=== PATIENT | male | born 2000 | race Caucasian/White ===

== ENCOUNTER 2021-09-27 20:36 | Emergency (ER) | payer OTHER, SELFPAY ==
[2021-09-27 20:37] VITALS: BP 137/83; PULSE 88; RESP 16; TEMP 36.8; O2SAT 98; BMI 24.5
--- NOTE | 2021-09-27 21:06 | CT_ITS ---
STUDY: CT BRAIN WITHOUT CONTRAST REASON FOR EXAM: Male, 21 years old. Closed head injury, problems with balance TECHNIQUE: Transaxial CT imaging of the brain was performed without administration of intravenous contrast material. Individualized dose optimization techniques were used for this CT. COMPARISON: None FINDINGS: Normal calvarium. Normal soft tissues. Normal size ventricles and extra-axial spaces for the patient''s age. Normal white matter tracts of the cerebral hemispheres. Normal basal ganglia and thalami. Normal brainstem. Normal cerebellum. There is no intracranial hemorrhage. There are no findings of an acute ischemic infarction. Normal visualized paranasal sinuses. ASPECTS 10 CT/Brain/Head without Contrast IMPRESSION: There are no acute intracranial findings. Electronically Signed: Benji Sanchez MD at 21:34 EDT ,
--- NOTE | 2021-09-27 21:07 | EDS_ITS ---
HPI History of Present Illness Chief Complaint: Head Injury Detail of Chief Complaint: Closed head injury with balance issues Informant: patient Onset/Context/Timing Onset: Hours (Incident occurred at approximately 1300) Mechanism/Context: Blunt Injury Quality of Pain: Dull and Aching Location: Left frontal parietal region Current Severity: Mild Maximum Severity: Moderate Worsened by: Palpation and activity Relieved by: Nothing Associated Symptoms Associated Symptoms: Positive for Parasthesias (Both hands initially) and - (Patient states if he tilts his head upward he falls and has trouble with his balance); Negative for Weakness, Loss of function, Inability to ambulate, Loss of consciousness or Amnesia Narrative Narrative: Patient is a 21-year-old male who was at [employer]. A metal drinking container fell from 15 feet striking him on the top of the head. He denies loss of conscious he denies being days. He does report headache, not being his normal self and problems with his balance. He denies double vision, blurred vision loss of vision. He denies drainage ears or decreased hearing. He denies trouble with speech or swallowing. He denies neck pain. He denies cardiac respiratory symptoms. He does endorse nausea without vomiting diarrhea. He has no other complaints. He is on no medication. Tetanus Immunization: <5 years Prior similar symptoms: No Recent Illness/Hospitalization: No PFSH PFSH Medical History no medical history no medical history Allergy/AdvReac Type Severity Reaction Status Date / Time No Known Allergies Allergy Verified 09/27/21 20:39 Social History (Updated 09/27/21 @ 21:[address] João Mims MD) household members: family Smoking Status: Never smoker substance use type: does not use ROS ROS ED Constitutional Constitutional ED: Denies chills, fever(s) or sweats Eyes Eyes: Denies blurry vision or change in vision ENT ENT ED: Reports other Details: He denies epistaxis ; Denies ear pain, rhinorrhea or sore throat Cardiovascular Cardiovascular: Denies chest pain or palpitations Respiratory/Chest Respiratory/Chest: Denies cough or dyspnea Gastrointestinal Gastrointestinal: Reports nausea; Denies abdominal pain or vomiting Musculoskeletal Musculoskeletal: Denies arthralgias, back pain, myalgias or neck pain Integumentary Denies abscess, Abrasions or rash Neurologic Neurologic: Reports headache(s); Denies paresthesias or weakness Psychiatric Psychiatric: Denies anxiety Hematologic/Lymphatic Hematologic/Lymphatic: Denies easy bleeding, easy bruising or lymphadenopathy EXAM Physical Exam Const Vital Signs: 09/27/21 20:37 09/27/21 20:57 Temperature 98.2 F Temperature Source Temporal Pulse Rate 88 Respiratory Rate 16 Respiratory Effort Normal Non-Labored Respiratory Depth Normal Respiratory Pattern Normal Blood Pressure 137/83 H Blood Pressure Mean 101 Pulse Ox 98 Oxygen Delivery Method Room Air Room Air Positive well nourished and well developed Constitutional Narrative: He is quiet. His psychomotor skills are slow. General Appearance ED: well developed and NAD HEENT Reports TM's clear atraumatic; Negative for trauma or tenderness Nose: Negative for septum abnormal Tympanic Membrane ED: Yes TM's clear right (Unable to see due to significant cerumen in the external auditory canal) Eyes PERRL and EOMs intact bilaterally Neck full ROM General: Negative for tenderness Resp normal respiratory effort and clear to auscultation bilaterally Cardio regular rhythm, S1 normal heart sound, S2 normal heart sound and no murmurs GI normal to inspection, nondistended, normoactive bowel sounds, non-tender and non-distended Back/Spine normal to inspection and no thoracic nor lumbar tenderness Extremity normal to inspection and full ROM Neuro oriented x3, CN's II-XII intact bilaterally, moves all extremities, no focal motor deficits and no sensory deficits noted Neuro Narrative: Gait is normal. Able to walk on heels or toes. Tandem gait is abnormal and he falls to the right. Romberg with eyes open and close are negative. Sherly Coma Scale: document GCS findings Spontaneous Obeys Commands Oriented 15 Sensorium / Orientation: alert, oriented to person, oriented to place and oriented to time Motor Exam: strength 5/5 throughout Deep Tendon Reflexes: Rt Triceps (C7): 2+, Lt Triceps (C7): 2+, Rt Biceps (C5, C6): 2+, Lt Biceps (C5, C6): 2+, Rt Brachioradialis (C6): 2+, Lt Brachioradialis (C6): 2+, Rt Patellar (L4): 2+, Lt Patellar (L4): 2+, Rt Ankle (S1): 2+ and Lt Ankle (S1): 2+ Deep Tendon Reflexes Back: Rt Patellar (L4): 2+, Lt Patellar (L4): 2+, Rt Ankle (S1): 2+ and Lt Ankle (S1): 2+ Plantar Reflex: Downgoing: bilateral (There is no clonus at the ankles) Psych mental status grossly normal and thought process normal Skin no rashes or lesions noted, no wounds, skin turgor normal and no jaundice MDM MDM MDM Narrative Medical decision making narrative: With history of closed head injury persistent headache trouble with tandem gait and falling backwards when he does look upwards will obtain CT to evaluate for intracranial bleed versus concussion. Radiography Diagnostic Testing: Clinical Impression(s) from Imaging Studies Brain CT 09/27/21 21:06 IMPRESSION: There are no acute intracranial findings. Electronically Signed: Benji Sanchez MD at 21:34 EDT , CT of the head was independently reviewed by me. Agree there is no evidence of epidural, subdural, traumatic subarachnoid hemorrhage or contusion. There is a retention cyst right maxillary sinus. There is no evidence of fracture. Treatment and Re-Evaluation Narrative: Patient and mother were informed of results at 2001. All their questions were answered. Discharge Plan Triage Chief Complaint: Head Injury ED Provider: João Mims Dx/Rx/DC Orders Clinical Impression: Concussion without loss of consciousness, initial encounter Instructions: ED Concussion Primary Care Provider: Kevin Burt Referrals: Kevin Burt DO [Primary Care Provider] - As Needed Activity Restrictions/Additional Instructions: If your symptoms persist greater than 6 weeks follow-up with Dr. Kevin Burt Disposition Disposition: Home, Self Care
[2021-09-27 22:21] VITALS: PULSE 89; RESP 18; O2SAT 98
== END 2021-09-27 22:22 | disposition home or self-care (01) ==
PROVIDERS: Emergency Provider Emergency Medicine; PCP Pediatrics; Visit Provider Emergency Medicine
DX: S06.0X0A Concussion without loss of consciousness, initial encounter (principal); W22.8XXA Striking against or struck by other objects, initial encounter; Y93.89 Activity, other specified; Y99.8 Other external cause status; Y92.831 Amusement park as the place of occurrence of the external cause
CPT/HCPCS: 70450; 99282

== ENCOUNTER 2025-02-26 13:53 | Emergency (ER) | payer OTHER, SELFPAY ==
[2025-02-26 13:55] VITALS: BP 140/86; PULSE 93; RESP 16; TEMP 36.6; O2SAT 100; BMI 26.5
--- OUTSIDE RECORDS SUMMARY | 2025-02-26 14:41 | XMS RPT_ITS | CCD ---
Author Organization [facility] Care Team Providers Care Casting Assistant Name Role Phone Soham Laughlin DO Primary Care Provider Jose Schmidt MD Primary Care Provider Jose Schmidt MD Primary Care Provider Haagen SLAB TRIPPER.FILM SOUND ENGINEER Barbie Unavailable Suppan SLAB TRIPPER.FILM SOUND ENGINEER, Leidy A Unavailable [phone] Suppan SLAB TRIPPER.FILM SOUND ENGINEER, Leidy A Unavailable Suppan SLAB TRIPPER.FILM SOUND ENGINEER, Leidy A Unavailable [phone] JOSE SCHMIDT Primary Care Unavailable HAYLIE, DARWIN Attending Unavailable BRAYAN, JOSE Cornejo Primary Care Unavailable LEIDY HUSAIN Referring Unavailable BRAYAN, JOSE Cornejo Primary Care Unavailable BRAYAN, JOSE Cornejo Referring Unavailable BRAYAN, JOSE Cornejo Referring Unavailable BRAYAN, JOSE Cornejo Primary Care Unavailable BRAYAN, JOSE Cornejo Referring Unavailable GOLIAS, DARWIN Attending Unavailable BRAYAN, JOSE Cornejo Primary Care Unavailable BRAYAN, JOSE Cornejo Referring Unavailable GOLIAS, DARWIN Attending Unavailable BRAYAN, JOSE Cornejo Primary Care Unavailable GOLIAS, DARWIN Attending Unavailable BRAYAN, JOSE Cornejo Primary Care Unavailable BRAYAN, JOSE Cornejo Referring Unavailable BRAYAN, JOSE Cornejo Primary Care Unavailable BRAYAN, JOSE Cornejo Attending Unavailable BRAYAN, JOSE Cornejo Referring Unavailable BRAYAN, JOSE Cornejo Primary Care Unavailable BRAYAN, JOSE Cornejo Primary Care Unavailable SOHAM LAUGHLIN Primary Care Unavailable BRAYAN, JOSE Cornejo Attending Unavailable BRAYAN, JOSE Cornejo Referring Unavailable BRAYAN, JOSE Cornejo Primary Care Unavailable BRAYAN, JOSE Cornejo Primary Care Unavailable Medications Current Medications Medication Drug Class(es) Dates Sig (Normalized) Sig (Original) diphenhydrAMINE-maal ox-lidocaine (BMX 1:1:1) 1:1:1 liqd (7 sources) Start: 06-04-2024 diphenhydrAMINE-maa lox-lidocaine (BMX 1:1:1) 1:1:1 liqd Indications: Aphthous ulcer of mouth Mix in equal amounts - 1 T every 2hrs as needed for mouth pain, Swish and expectorate. (8oz) 240 mL 06/04/2024 Active Start: 12-05-2021 End: 01-23-2023 take 10 mL by mouth three times daily as needed oiqipsfswxLUOMB-pzcini-ifwnwixcv (BMX 1: 1:1) 1:1:1 liqd Indications: COVID-19 , Acute pharyngitis, unspecified etiology Take 10 mL by mouth three times daily as needed (sore throat). 100 mL 0 12/05/2021 01/23/2023 Discontinued Start: 12-05-2021 take 10 mL by mouth three times daily as needed thpxnybwicNQTVY-tlianv-nnoizeycn (BMX 1: 1:1) 1:1:1 liqd Indications: COVID-19 , Acute pharyngitis, unspecified etiology Take 10 mL by mouth three times daily as needed (sore throat). 100 mL 0 12/05/2021 Active Comment on above: Take 10 mL by mouth three times daily as needed (sore throat). doxycycline hyclate 100 mg oral tablet (1 source) Tetracycline-class Drug Start: 4 End: 4 take 1 tablet by mouth twice daily doxycycline (VIBRA-TABS) 100 mg tablet Take 1 tablet by mouth two times a day for 5 days. 10 tablet 0 10/20/2023 10/25/2023 Active predniSONE 20 mg oral tablet (3 sources) Start: 4 End: 4 take 1 tablet by mouth once daily at mealtime predniSONE (DELTASONE) 20 mg tablet Indications: Acute midline low back pain without sciatica Take 1 tablet by mouth once daily for 5 days. Take daily with food. 5 tablet 02/27/2024 03/03/2024 Active Start: 08-20-2023 End: 08-29-2023 predniSONE (DELTASONE) 10 mg tablet Take 4 tabs daily for 3 days, then 2 tabs daily for 3 days, then 1 tab daily for 3 days with food. 21 tablet 0 08/20/2023 08/29/2023 Active valACYclovir 1000 mg oral tablet (1 source) Herpesvirus Nucleoside Analog DNA Polymerase Inhibitor, Herpes Simplex Virus Nucleoside Analog DNA Polymerase Inhibitor, Herpes Zoster Virus Nucleoside Analog DNA Polymerase Inhibitor Start: 08-20-2023 End: 08-27-2023 take 1 tablet by mouth three times daily valACYclovir (VALTREX) 1 gram tablet Take 1 tablet by mouth three times a day for 7 days. 21 tablet 0 08/20/2023 08/27/2023 Active Problems Active Problems Problem Classification Problem Date Documented Da te Episodic/Chronic Acute and chronic tonsillitis (1 source) Ulcer of tonsil; Translations: [Other chronic diseases of tonsils and adenoids] 08-20-2023 Chronic Diseases of mouth; excluding dental (1 source) Aphthous ulcer of mouth; Translations: [Recurrent oral aphthae] 06-04-2024 Episodic Immunizations and screening for infectious disease (1 source) Patient encounter status; Translations: [Encounter for immunization] Episodic Intracranial injury (1 source) Concussion with no loss of consciousness; Translations: [Concussion without loss of consciousness, initial encounter] Episodic Other ear and sense organ disorders (1 source) Bilateral hearing loss; Translations: [Impacted cerumen, bilateral] 01-19-2023 Episodic Other upper respiratory infections (1 source) Acute pharyngitis; Translations: [Acute pharyngitis, unspecified] Episodic Skin and subcutaneous tissue infections (1 source) Cellulitis of skin; Translations: [Cellulitis, unspecified] 10-20-2023 Episodic Spondylosis; intervertebral disc disorders; other back problems (18 sources) Acute low back pain; Translations: [Acute midline low back pain without sciatica] Onset: 03-30-2024 02-27-2024 Episodic Unclassified (1 source) Acute midline low back pain without sciatica; Translations: [Acute midline low back pain without sciatica] Onset: 02-27-2024 Viral infection (1 source) Disease caused by 2019-nCoV; Translations: [COVID-19] Episodic Past or Other Problems Problem Classification Problem Date Documented Da te Episodic/Chronic Open wounds of extremities (19 sources) Dog bite of upper limb; Translations: [Open bite of unspecified upper arm, initial encounter] Onset: 04-23-2015 04-23-2015 Episodic Results Test Name Value Interpretation Reference Range Gabbie Duvall 06-04-2024 CNOV Office Visit (UCTR ) ODIN ALVAREZ ([id number]) 2 M Date Time Provider Department 06/04/24 1:45 PM JARAD TEAGUE [facility] During your visit today, we recorded the following information about you: Temperature Pulse Respiration Blood pressure 98.3 degrees 64/minute 18/minute 119/80 Weight 94.6 kg Jarad Teague MD 06/04/2024 2:08 PM Signed [facility] Subjective Odin Alvarez is a 24 year old male. Patient presents with: Mouth Sores: Sore on uvula x2 days Patient presents with painful ulcers on his uvula for the last 3 days. Is difficult to swallow. He has had aphthous ulcers previously; has outbreaks a few times per year. He has a headache but no other symptoms. He has taken acetaminophen. Salt water gargles hurt and are difficult to get back far enough. Review of Systems Constitutional: Negative for chills and fever. HENT: Positive for mouth sores and trouble swallowing. Negative for congestion, postnasal drip, rhinorrhea, sinus pressure and sinus pain. Objective BP 119/80 Pulse 64 Temp 36.8 ?C (98.3 ?F) Resp 18 Wt 94.6 kg (208 lb 8.9 oz) SpO2 100% BMI 28.00 kg/m? Physical Exam Constitutional: General: He is not in acute distress. HENT: Right Ear: Tympanic membrane and ear canal normal. Left Ear: Tympanic membrane and ear canal normal. Nose: No congestion or rhinorrhea. Comments: Shallow arrieta ulcerations with mild surrounding erythema on the uvula, soft palate-tonsillar pillars. Mouth/Throat: Mouth: Mucous membranes are moist. Pharynx: No posterior oropharyngeal erythema. Eyes: Extraocular Movements: Extraocular movements intact. Conjunctiva/sclera: Conjunctivae normal. Pupils: Pupils are equal, round, and reactive to light. Cardiovascular: Rate and Rhythm: Normal rate and regular rhythm. Pulmonary: Effort: Pulmonary effort is normal. Breath sounds: Normal breath sounds. Musculoskeletal: Cervical back: Neck supple. No tenderness. Lymphadenopathy: Cervical: No cervical adenopathy. Neurological: Mental Status: He is alert. ASSESSMENT/PLAN: 1. Aphthous ulcer of mouth - ICD9: 528.2, ICD10: K12.0 - STREP A MOLECULAR (POC) - negative. Reviewed symptomatic treatment for idiopathic generally benign intermittent condition. His differential includes herpangina. - DIPHENHYDRAMINE-MAALO X-LIDOCAINE ORAL LIQUID ADS - can be compounded at the pharmacy. Spit out after gargling and avoid overuse. OTC benadryl and maalox can be used as an alternative. He may consider consult with ear nose and throat if symptoms are recurrent or bothersome enough. Jarad Teague MD Allergies As of Date: 06/04/2024 (No Known Allergies) Date Reviewed: 06/04/2024 Reviewed by: Yoselin Montiel MA - Fully Assessed Reason for Visit: Mouth Sores [839] Cmt: Sore on uvula x2 days Primary Visit Diagnosis:Aphthous ulcer of mouth [K12.0] Order(s):STREP A MOLECULAR (POC) [[id number]] Order #: [id number]. #:[id number] diphenhydrAMINE-maalo x-lidocaine (BMX 1:1:1) 1:1:1 liqdMix in equal amounts - 1 T every 2hrs as needed for mouth pain, Swish and expectorate. (8oz)Disp: 240 mLRfl: 0 Prescriptions as of 06/04/2024 - diphenhydrAMINE-maalo x-lidocaine (BMX 1:1:1) 1:1:1 liqd Mix in equal amounts - 1 T every 2hrs as needed for mouth pain, Swish and expectorate. (8oz) Problem List As Of Date 06/04/2024 Noted Resolved Dog bite of arm [S41.159A, W54.0XXA] 04/23/2015 Acute bilateral low back pain without sciatica *03/30/2024 Prescriptions ordered this encounter Disp Refills Start End DIPHENHYDRAMINE-MAALO X-LIDOCAINE ORA* 240 * 0 06/04/2024 Class: Print RX Sig: Mix in equal amounts - 1 T every 2hrs as needed for mouth pain, Swish and expectorate. (8oz) Level of Service: OFFICE/OUTPATIENT ESTABLISHED [facility] 30 MIN [15046] Letter Text Encounter Status:Closed by JARAD TEAGUE on 06/04/24 Normal [facility] STREP A MOLECULAR (POC)on Procedural Control Valid [facility] Strep A (POCT) Negative Negative [facility] CNTHERAPYon 05-21-2024 CNTHERAPY OT/PT/Speech Visit (PTWS) ODIN ALVAREZ ([id number]) [birth year]/ M Date Time Provider Department 05/21/24 9:30 AM DARWIN CERVANTES PTBRIA Date Time Provider Department Center 05/21/2024 9:30 AM [id number], BRENT PTBRIA Ly Reason for Visit: Physical Therapy [503] PT Discharge [752] Primary Visit Diagnosis:Acute bilateral low back pain without sciatica [M54.50] Allergies As of Date: 05/21/2024 (No Known Allergies) Date Reviewed: 02/27/2024 Reviewed by: Mary Lou Grant MA - Fully Assessed Normal [facility] CNTHERAPYon 05-07-2024 CNTHERAPY OT/PT/Speech Visit (PTWS) ODIN ALVAREZ ([id number]) 2 M Date Time Provider Department 05/07/24 3:00 PM DARWIN CERVANTES PTWS Date Time Provider Department Center 05/07/2024 3:00 PM [id number], BRENT PTWS Stefany Ly Reason for Visit: Physical Therapy [503] Primary Visit Diagnosis:Acute bilateral low back pain without sciatica [M54.50] Allergies As of Date: 05/07/2024 (No Known Allergies) Date Reviewed: 02/27/2024 Reviewed by: Mary Lou Grant MA - Fully Assessed [facility] CNTHERAPYon 04-30-2024 CNTHERAPY OT/PT/Speech Visit (PTWS) ODIN ALVAREZ ([id number]) 2 M Date Time Provider Department 04/30/24 3:00 PM DARWIN CERVANTES PTWS Date Time Provider Department Center 04/30/2024 3:00 PM [id number], BRENT PTBRIA Ly Reason for Visit: Physical Therapy [503] PT Progress Note [1596] Primary Visit Diagnosis:Acute bilateral low back pain without sciatica [M54.50] Allergies As of Date: 04/30/2024 (No Known Allergies) Date Reviewed: 02/27/2024 Reviewed by: Mary Lou Grant MA - Fully Assessed Field Agent: Therapy (PT/OT/Speech/Resp) ID: [id number] 04/30/2024 3:25 PM Author: DARWIN CERVANTES Signed by DARWIN CERVANTES PT on 04/30/2024 at 3:25 PM Document text: Program_ID:[id number] Access Code: [email or web address] URL: [email or web address] [email or web address]/ Date: 04-30-2024 Prepared By: Darwin Cervantes Program Notes Exercises - Supine Double Knee to Chest - 3 x daily - 7 x weekly - sets - 3 reps - Curl Up with Arms Crossed - 3 x daily - 7 x weekly - 2 sets - 10 reps - Supine 90/90 Alternating Heel Touches with Posterior Pelvic Tilt - 3 x daily - 7 x weekly - 2 sets - 10 reps - Seated Hamstring Stretch - 1 x daily - 7 x weekly - 1 sets - 3 reps - Standing Hamstring Stretch with Step - 1 x daily - 7 x weekly - 1 sets - 3 reps - Supine Lower Trunk Rotation - 3 x daily - 7 x weekly - 2 sets - 10 reps - Supine Bridge with Knee Extension and Pelvic Floor Contraction - 3 x daily - 7 x weekly - 2 sets - 10 reps - Quadruped Pelvic Floor Contraction with Opposite Arm and Leg Lift - 3 x daily - 7 x weekly - 2 sets - 10 reps ----- Normal [facility] THERAPY NTon 04-30-2024 THERAPY NT HNO ID: [id number] Author: DARWIN CERVANTES PT Service: ? Author Type: Physical Therapist Type: Therapy (PT/OT/Speech/Resp) Filed: 04/30/2024 15:25 Note Text: Program_ID:[id number] Access Code: [email or web address] URL: [email or web address]/ Date: 04-30-2024 Prepared By: Darwin Cervantes Program Notes Exercises - Supine Double Knee to Chest - 3 x daily - 7 x weekly - sets - 3 reps - Curl Up with Arms Crossed - 3 x daily - 7 x weekly - 2 sets - 10 reps - Supine 90/90 Alternating Heel Touches with Posterior Pelvic Tilt - 3 x daily - 7 x weekly - 2 sets - 10 reps - Seated Hamstring Stretch - 1 x daily - 7 x weekly - 1 sets - 3 reps - Standing Hamstring Stretch with Step - 1 x daily - 7 x weekly - 1 sets - 3 reps - Supine Lower Trunk Rotation - 3 x daily - 7 x weekly - 2 sets - 10 reps - Supine Bridge with Knee Extension and Pelvic Floor Contraction - 3 x daily - 7 x weekly - 2 sets - 10 reps - Quadruped Pelvic Floor Contraction with Opposite Arm and Leg Lift - 3 x daily - 7 x weekly - 2 sets - 10 reps Normal [facility] CNTHERAPYon 04-15-2024 CNTHERAPY OT/PT/Speech Visit (PTWS) ODIN ALVAREZ ([id number]) 2 M Date Time Provider Department 04/15/24 8:45 AM EMMA PRATT Date Time Provider Department Center 04/15/2024 8:45 AM [id number] [id number] Reason for Visit: Physical Therapy [503] Primary Visit Diagnosis:Acute bilateral low back pain without sciatica [M54.50] Allergies As of Date: 04/15/2024 (No Known Allergies) Date Reviewed: 02/27/2024 Reviewed by: Mary Lou Garnt MA - Fully Assessed Normal [facility] CNTHERAPYon 04-09-2024 CNTHERAPY OT/PT/Speech Visit (PTWS) ODIN ALVAREZ ([id number]) 2 M Date Time Provider Department 04/09/24 1:15 PM EMMA PRATT Date Time Provider Department Center 04/09/2024 1:15 PM [id number], MARIAH PTWS Stefany Ly Reason for Visit: Physical Therapy [503] Primary Visit Diagnosis:Acute bilateral low back pain without sciatica [M54.50] Allergies As of Date: 04/09/2024 (No Known Allergies) Date Reviewed: 02/27/2024 Reviewed by: Mary Lou Grant MA - Fully Assessed Field Agent: Therapy (PT/OT/Speech/Resp) ID: [id number] 04/09/2024 1:54 PM Author: EMMA PRATT Signed by EMMA PRATT VEGETABLE VENDOR on 04/09/2024 at 1:54 PM Document text: Program_ID:[id number] Access Code: [email or web address] URL: [email or web address] Date: 04-09-2024 Prepared By: Darwin Cervantes Program Notes Exercises - Supine Double Knee to Chest - 3 x daily - 7 x weekly - sets - 3 reps - Supine Transversus Abdominis Bracing - Hands on Ground - 3 x daily - 7 x weekly - 2 sets - 10 reps - Curl Up with Arms Crossed - 3 x daily - 7 x weekly - 2 sets - 10 reps - Supine Bridge - 3 x daily - 7 x weekly - 2 sets - 10 reps - Supine March with Posterior Pelvic Tilt - 1 x daily - 7 x weekly - 2 sets - 10 reps - Supine 90/90 Alternating Heel Touches with Posterior Pelvic Tilt - 1 x daily - 7 x weekly - 2 sets - 10 reps - Seated Hamstring Stretch - 1 x daily - 7 x weekly - 1 sets - 3 reps - Standing Hamstring Stretch with Step - 1 x daily - 7 x weekly - 1 sets - 3 reps ----- Normal [facility] THERAPY NTon 04-09-2024 THERAPY NT HNO ID: [id number] Author: EMMA PRATT PTA Service: ? Author Type: Automobile Dealer Type: Therapy (PT/OT/Speech/Resp) Filed: 04/09/2024 13:54 Note Text: Program_ID:[id number] Access Code: [email or web address] URL: [email or web address]/ Date: 04-09-2024 Prepared By: Darwin Cervantes Program Notes Exercises - Supine Double Knee to Chest - 3 x daily - 7 x weekly - sets - 3 reps - Supine Transversus Abdominis Bracing - Hands on Ground - 3 x daily - 7 x weekly - 2 sets - 10 reps - Curl Up with Arms Crossed - 3 x daily - 7 x weekly - 2 sets - 10 reps - Supine Bridge - 3 x daily - 7 x weekly - 2 sets - 10 reps - Supine March with Posterior Pelvic Tilt - 1 x daily - 7 x weekly - 2 sets - 10 reps - Supine 90/90 Alternating Heel Touches with Posterior Pelvic Tilt - 1 x daily - 7 x weekly - 2 sets - 10 reps - Seated Hamstring Stretch - 1 x daily - 7 x weekly - 1 sets - 3 reps - Standing Hamstring Stretch with Step - 1 x daily - 7 x weekly - 1 sets - 3 reps Normal [facility] CNTHERAPYon 03-30-2024 CNTHERAPY OT/PT/Speech Visit (PTWS) ODIN ALVAREZ ([id number]) 2 M Date Time Provider Department 03/30/24 1:15 PM DARWIN CERVANTES PTWS Date Time Provider Department [place] 03/30/2024 1:15 PM [id number], BRENT PTWS Stefany Ly Reason for Visit: PT Eval [747] Physical Therapy [503] Primary Visit Diagnosis:Acute bilateral low back pain without sciatica [M54.50] Other Visit Diagnosis:Low back pain with sciatica, sciatica laterality unspecified, unspecified back pain laterality, unspecified chronicity [M54.40] Allergies As of Date: 03/30/2024 (No Known Allergies) Date Reviewed: 02/27/2024 Reviewed by: Mary Lou Grant MA - Fully Assessed Field Agent: Addendum Therapy (PT/OT/Speech/Resp) ID: [id number] 03/30/2024 1:57 PM Author: DARWIN CERVANTES Signed by DARWIN CERVANTES PT on 03/30/2024 at 1:57 PM * * * This document replaces document [id number] * * * Document text: Program_ID:[id number] Access Code: [email or web address] URL: [email or web address] Date: 03-30-2024 Prepared By: Darwin Cervantes Program Notes Exercises - Supine Double Knee to Chest - 3 x daily - 7 x weekly - sets - 3 reps - Supine Transversus Abdominis Bracing - Hands on Ground - 3 x daily - 7 x weekly - 2 sets - 10 reps - Curl Up with Arms Crossed - 3 x daily - 7 x weekly - 2 sets - 10 reps - Supine Bridge - 3 x daily - 7 x weekly - 2 sets - 10 reps ----- Normal [facility] THERAPY NTon 03-30-2024 THERAPY NT HNO ID: [id number] Author: DARWIN CERVANTES PT Service: ? Author Type: Physical Therapist Type: Therapy (PT/OT/Speech/Resp) Filed: 03/30/2024 13:57 Note Text: Program_ID:[id number] Access Code: [email or web address] URL: [email or web address] Date: 03-30-2024 Prepared By: Darwin Cervantes Program Notes Exercises - Supine Double Knee to Chest - 3 x daily - 7 x weekly - sets - 3 reps - Supine Transversus Abdominis Bracing - Hands on Ground - 3 x daily - 7 x weekly - 2 sets - 10 reps - Curl Up with Arms Crossed - 3 x daily - 7 x weekly - 2 sets - 10 reps - Supine Bridge - 3 x daily - 7 x weekly - 2 sets - 10 reps Normal [facility] CNOVon 02-27-2024 CNOV Office Visit (FAMPWS ) ODIN ALVAREZ ([id number]) 2 M Date Time Provider Department 02/27[facility]24 1[facility] PM [facility] your visit today, we recorded the following information about you: Pulse Blood pressure Weight Height 81/minute 127/80 100.8 kg 1.838 m Jose Schmidt MD 02/27/2024 1:29 PM Signed Patient presents with: Back Pain HPI: Patient presents today for office visit for lower back pain. Constant pain in lower back over the past two months. Refers to a constant dull ache. No injury. Two weeks ago pain was pretty significant to where he was barely able to stand up straight. Trouble lifting things. Using icy hot and Advil. Some relief. No generalized weakness. No numbness of tingling. In a strip along his lower back. No radicular pain, numbness or weakness. Used advil and icy hot helps some. Did stretches. No urinary issues. MEDICATIONS: No current outpatient medications on file. No current facility-administered medications for this visit. ALLERGIES: ALLERGIES No Known Allergies PAST MEDICAL HISTORY Diagnosis Date PMH - PAST MEDICAL HISTORY OF 10/2006 normal color vision Wrist fracture both wrists PAST SURGICAL HISTORY Procedure Laterality Date CIRCUMCISION,CLAMP,NE WBORN FAMILY HISTORY Problem Relation Age of Onset other (high cholesterol) Mother Cancer Paternal Grandfather lymphoma Hypertension Paternal Grandfather Thyroid Maternal Grandmother Cancer Maternal Grandmother Hypertension Maternal Grandmother Heart Maternal Grandfather Cancer Maternal Grandfather colon other (high cholesterol) Maternal Grandfather Social History Tobacco Use Smoking status: Never Smokeless tobacco: Never Substance Use Topics Alcohol use: No Drug use: No Reviewed current medications, allergies, past medical history, surgical history, family history and social history today. REVIEW OF SYSTEMS All other reviewed and negative other than HPI. VITALS: BP 127/80 Pulse 81 Ht 183.8 cm (6' 0.36") Wt 100.8 kg (222 lb 3.6 oz) BMI 29.84 kg/m? Last 4 Encounter Wt Readings: Date: Wt: 10/20/2023 99 kg (218 lb 4.1 oz) 08/20/2023 100.5 kg (221 lb 9 oz) 07/17/2023 100.4 kg (221 lb 5.5 oz) 01/19/2023 94.4 kg (208 lb 3.2 oz) PHYSICAL EXAMINATION: General appearance: Well appearing, alert, in no acute distress, well-hydrated, well nourished. BACK: Normal curvature of spine. No spine tenderness. Straight leg test negative. Deep tendon reflexes 2+/4 at patellas. Normal lower extremity strength. ASSESSMENT/PLAN: 1. Acute midline low back pain without sciatica - ICD9: 724.2, ICD10: M54.50 - Discussed risks and benefits of new medication with the patient. Advised them to call if any side effects or questions. Red flags for re-assessment reviewed with patient in detail. Call if symptoms worsen at all or if not better in one to two weeks Reviewed diagnosis and treatment options in detail. Questions were answered. Patient expressed understanding of treatment plan. - XR LUMBAR GENERAL 3V AP/LAT/L5-S1 - PREDNISONE 20 MG TABLET MD Brayan Norris William J, MD 02/27/2024 1:28 PM Signed Low Back Pain-Exercises What exercise can I do to reduce low back pain? Pelvic tilt Lie on your back with your knees bent. In this relaxed position, the small of your back will not be touching the floor. Tighten your abdominal muscles so that the small of your back presses flat against the floor. Hold for five seconds then relax. Repeat three times and gradually build to 10 repetitions. Sldjy-ji-rkoou Lie on your back with both legs straight. Bring one knee up to your chest, pressing the small of your back into the floor (pelvic tilt). Hold for five seconds and repeat five times. Repeat exercise on other leg. Back stretch Lie on your stomach. Use your arms to push your upper body off the floor. Hold for five seconds. Let your back relax and sag. Repeat 10 times. Discontinue any exercise that produces or increases pain in the leg. ? Copyright 9102-3090 [facility]. All rights reserved. This information is provided by the [facility] and is not intended to replace the medical advice of your doctor or health care provider. Please consult your health care provider for advice about a specific medical condition. For additional written health information, please contact the Health Information Center at the [facility] or toll-free extension [phone] or visit [email or web address] This document was last reviewed on: 2004 index#4372 Allergies As of Date: 02/27/2024 (No Known Allergies) Date Reviewed: 02/27/2024 Reviewed by: Mary Lou Grant MA - Fully Assessed Reason for Visit: Back Pain [12] Primary Visit Diagnosis:Acute midline low back pain without (more content not included)... Normal [facility] XR LUMBAR 3V AP/LAT/L5-S1on 02-27-2024 XR LUMBAR 3V AP/LAT/L5-S1 * * *Final Report* * * DATE OF EXAM: Feb 27 2024 1:52PM WOX [id number] - XR LUMBAR 3V AP/LAT/L5-S1 / PROCEDURE REASON: Acute midline low back pain without sciatica * * * * Physician Interpretation * * * * EXAM TITLE: XR LUMBAR 3V AP/LAT/L5-S1 EXAM DATE/TIME: 02/27/2024 1:52 PM COMPARISON: None. CLINICAL INDICATION/HISTORY: Low back pain. TECHNIQUE: AP, lateral and cone down lateral views of the lumbar spine are presented. FINDINGS: There are five nqr-zdc-bqrcxgp lumbar vertebrae. No acute fractures demonstrated. There appears to be minimal L4 on L5 anterolisthesis, with what appears to be L4 pars defect. The disc spaces are well preserved. There is no significant osteophyte formation. Kissing spine seen on lateral view. IMPRESSION: Findings as described above. Management Manager: PSCB Transcribe Date/Time: Feb 27 2024 3:26P Dictated by : NEHA DELATORRE MD This examination was interpreted and the report reviewed and electronically signed by: NEHA DELATORRE MD on Feb 27 2024 3:28PM EST [id number] Normal [facility] XR Lumbar spine 3 Viewson IMPRESSION: Findings as described above. Management Manager: PSCB Transcribe Date/Time: Feb 27 2024 3:26P Dictated by : NEHA DELATORRE MD This examination was interpreted and the report reviewed and electronically signed by: NEHA DELATORRE MD on Feb 27 2024 3:28PM EST DIVISION OF RADIOLOGY * * *Final Report* * * DATE OF EXAM: Feb 27 2024 1:52PM WOX [id number] - XR LUMBAR 3V AP/LAT/L5-S1 / PROCEDURE REASON: Acute midline low back pain without sciatica * * * * Physician Interpretation * * * * EXAM TITLE: XR LUMBAR 3V AP/LAT/L5-S1 EXAM DATE/TIME: 02/27/2024 1:52 PM COMPARISON: None. CLINICAL INDICATION/HISTORY: Low back pain. TECHNIQUE: AP, lateral and cone down lateral views of the lumbar spine are presented. FINDINGS: There are five jmw-xde-kmngrun lumbar vertebrae. No acute fractures demonstrated. There appears to be minimal L4 on L5 anterolisthesis, with what appears to be L4 pars defect. The disc spaces are well preserved. There is no significant osteophyte formation. Kissing spine seen on lateral view. DIVISION OF RADIOLOGY Provider, [facility] - 02/27/2024 * * *Final Report* * * DATE OF EXAM: Feb 27 2024 1:52PM WOX [id number] - XR LUMBAR 3V AP/LAT/L5-S1 / PROCEDURE REASON: Acute midline low back pain without sciatica * * * * Physician Interpretation * * * * EXAM TITLE: XR LUMBAR 3V AP/LAT/L5-S1 EXAM DATE/TIME: 02/27/2024 1:52 PM COMPARISON: None. CLINICAL INDICATION/HISTORY: Low back pain. TECHNIQUE: AP, lateral and cone down lateral views of the lumbar spine are presented. FINDINGS: There are five xvh-tni-yeqccoq lumbar vertebrae. No acute fractures demonstrated. There appears to be minimal L4 on L5 anterolisthesis, with what appears to be L4 pars defect. The disc spaces are well preserved. There is no significant osteophyte formation. Kissing spine seen on lateral view. IMPRESSION IMPRESSION: Findings as described above. Management Manager: RUIZ Transcribe Date/Time: Feb 27 2024 3:26P Dictated by : NEHA DELATORRE MD This examination was interpreted and the report reviewed and electronically signed by: NEHA DELATORRE MD on Feb 27 2024 3:28PM EST [facility] Radiology Study observation (narrative) [facility] XR Lumbar spine 3 ViewsOrder ed By: Ccf Provider on 02-27-2024 [facility] CNOVon 10-20-2023 CNOV Office Visit (UCWSTR ) ODIN ALVAREZ ([id number]) 2 M Date Time Provider Department 10/20/23 11:00 AM KHADIJAH MORENO [facility] During your visit today, we recorded the following information about you: Temperature Pulse Respiration Blood pressure 96.8 degrees 64/minute 18/minute 110/80 Weight 99 kg Khadijah Moreno APRN.FILM SOUND ENGINEER 10/20/2023 11:19 AM Signed Subjective HPI Nontoxic-appearing male presents urgent care chief complaint sore on back of head. Has been there for quite some time. Has recently increased in pain and size. Presents today for evaluation. No trauma. No drainage. Overall feels well. Denies any fever body aches chills productive cough chest pain shortness of breath pleuritic pain hemoptysis nausea vomiting abdominal pain change in bowel or bladder habits. Past medical history prescription medication use and allergies reviewed. .Patient presents with: Mass: Bump/sore on back of head x 1 month PAST MEDICAL HISTORY Diagnosis Date PMH - PAST MEDICAL HISTORY OF 10/2006 normal color vision Wrist fracture both wrists PAST SURGICAL HISTORY Procedure Laterality Date CIRCUMCISION,CLAMP,NE WBORN ALLERGIES Patient has no known allergies. MEDICATIONS doxycycline (VIBRA-TABS) 100 mg tablet Take 1 tablet by mouth two times a day for 5 days. FAMILY HISTORY Problem Relation Age of Onset other (high cholesterol) Mother Cancer Paternal Grandfather lymphoma Hypertension Paternal Grandfather Thyroid Maternal Grandmother Cancer Maternal Grandmother Hypertension Maternal Grandmother Heart Maternal Grandfather Cancer Maternal Grandfather colon other (high cholesterol) Maternal Grandfather Social History Tobacco Use Smoking status: Never Smokeless tobacco: Never Substance Use Topics Alcohol use: No Drug use: No BP 110/80 Pulse 64 Temp 36 ?C (96.8 ?F) Resp 18 Wt 99 kg (218 lb 4.1 oz) SpO2 98% BMI 29.31 kg/m? Review of Systems Constitutional: Negative for chills, fever and malaise/fatigue. HENT: Negative for congestion, ear discharge, ear pain, sinus pain and sore throat. Eyes: Negative for blurred vision, pain, discharge and redness. Respiratory: Negative for cough, hemoptysis, sputum production, shortness of breath, wheezing and stridor. Cardiovascular: Negative for chest pain. Gastrointestinal: Negative for abdominal pain, diarrhea, nausea and vomiting. Musculoskeletal: Negative for myalgias. Skin: Negative for itching and rash. Neurological: Negative for dizziness and headaches. Objective Physical Exam Constitutional: General: He is not in acute distress. Appearance: He is not diaphoretic. HENT: Head: Normocephalic. Jaw: No trismus, tenderness, swelling or pain on movement. Mouth/Throat: Mouth: Mucous membranes are moist. Pharynx: Oropharynx is clear. Uvula midline. No pharyngeal swelling, oropharyngeal exudate, posterior oropharyngeal erythema or uvula swelling. Eyes: Conjunctiva/sclera: Conjunctivae normal. Pupils: Pupils are equal, round, and reactive to light. Cardiovascular: Rate and Rhythm: Normal rate and regular rhythm. Heart sounds: Normal heart sounds. Pulmonary: Effort: Pulmonary effort is normal. No tachypnea, accessory muscle usage or respiratory distress. Breath sounds: Normal breath sounds. No stridor. No wheezing, rhonchi or rales. Abdominal: General: There is no distension. Palpations: Abdomen is soft. Tenderness: There is no abdominal tenderness. There is no guarding or rebound. Musculoskeletal: Cervical back: Normal range of motion and neck supple. No edema, erythema, rigidity or tenderness. No pain with movement. Normal range of motion. Lymphadenopathy: Cervical: No cervical adenopathy. Skin: General: Skin is warm and dry. Comments: A 5 mm x 5 mm flesh-colored elevated lesion noted highlighted area. Surrounding erythema noted. No drainage. No fluctuance. Neurological: Mental Status: He is alert and oriented to person, place, and time. ASSESSMENT/PLAN: 1. Cellulitis of skin - ICD9: 682.9, ICD10: L03.90 Diagnosis cellulitis of skin. Placed on doxycycline. Referred to [facility] dermatology. Patient was educated on supportive therapies. Patient will follow up with primary care provider as needed. Patient was instructed to immediately proceed to emergency room for any new, worsening, or symptoms lasting longer than anticipated. The patient's clinical presentation is otherwise unremarkable at this time. Based on exam and clinical finding, the patient is stable for discharge. Plan of care was discussed with patient. Patient verbalizes understanding and agrees to plan of care. This note was generated using [employer] software. It may contain errors in wording, punctuation, or spelling. Khadijah Moreno APRN.FILM SOUND ENGINEER Allergies As of Date: 10/20/2023 (No Known Allergies) (more content not included)... Normal [facility] CNOVon 08-20-2023 CNOV Office Visit (UCWSTR ) ODIN ALVAREZ ([id number]) 2 M Date Time Provider Department 08/20/23 1:15 PM DELMER WILKERSON [facility] During your visit today, we recorded the following information about you: Temperature Pulse Respiration Blood pressure 97.2 degrees 83/minute 16/minute 128/72 Weight 100.5 kg Delmer Wilkerson APRN.CNP 08/20/2023 1:31 PM Signed This note was created using NoteWriter. Subjective Odin Alvarez is a 23 year old male. 23 year old male with no significant PMH presents for throat complaints. Acute onset 5 days ago +"ulcer" on tonsil +pain Denies tobaco usage Attempted thoat numbing medicine without relief Has had history of same in past. Denies fever or chills Denies malaise or fatigue Denies URI sx Denies cough The history is provided by the patient. No speech and language tutor was used. Mouth/Lip Problem This is a recurrent problem. The current episode started in the past 7 days. The problem occurs constantly. The problem has been unchanged. Associated symptoms include a sore throat. Pertinent negatives include no abdominal pain, anorexia, arthralgias, change in bowel habit, chest pain, chills, congestion, coughing, diaphoresis, fatigue, fever, headaches, joint swelling, myalgias, nausea, neck pain, numbness, rash, swollen glands, urinary symptoms, vertigo, visual change, vomiting or weakness. Nothing aggravates the symptoms. Treatments tried: throat spray. The treatment provided no relief. PAST MEDICAL HISTORY Diagnosis Date PMH - PAST MEDICAL HISTORY OF 10/2006 normal color vision Wrist fracture both wrists PAST SURGICAL HISTORY Procedure Laterality Date CIRCUMCISION,CLAMP,NE WBORN ALLERGIES Patient has no known allergies. MEDICATIONS predniSONE (DELTASONE) 10 mg tablet Take 4 tabs daily for 3 days, then 2 tabs daily for 3 days, then 1 tab daily for 3 days with food. valACYclovir (VALTREX) 1 gram tablet Take 1 tablet by mouth three times a day for 7 days. FAMILY HISTORY Problem Relation Age of Onset other (high cholesterol) Mother Cancer Paternal Grandfather lymphoma Hypertension Paternal Grandfather Thyroid Maternal Grandmother Cancer Maternal Grandmother Hypertension Maternal Grandmother Heart Maternal Grandfather Cancer Maternal Grandfather colon other (high cholesterol) Maternal Grandfather Social History Tobacco Use Smoking status: Never Smokeless tobacco: Never Substance Use Topics Alcohol use: No Drug use: No Review of Systems Constitutional: Negative for chills, diaphoresis, fatigue and fever. HENT: Positive for sore throat. Negative for congestion. Eyes: Negative for pain, discharge, redness and itching. Respiratory: Negative for apnea, cough, choking and chest tightness. Cardiovascular: Negative for chest pain. Gastrointestinal: Negative for abdominal pain, anorexia, change in bowel habit, nausea and vomiting. Musculoskeletal: Negative for arthralgias, joint swelling, myalgias and neck pain. Skin: Negative for color change, pallor and rash. Allergic/Immunologic: Negative for environmental allergies, food allergies and immunocompromised state. Neurological: Negative for vertigo, weakness, numbness and headaches. Hematological: Negative for adenopathy. Does not bruise/bleed easily. Psychiatric/Behaviora l: Negative for agitation and behavioral problems. Objective BP 128/72 Pulse 83 Temp 36.2 ?C (97.2 ?F) Resp 16 Wt 100.5 kg (221 lb 9 oz) SpO2 98% BMI 29.75 kg/m? Physical Exam Vitals and nursing note reviewed. Constitutional: General: He is not in acute distress. Appearance: Normal appearance. He is not ill-appearing, toxic-appearing or diaphoretic. HENT: Head: Normocephalic and atraumatic. Right Ear: External ear normal. Left Ear: External ear normal. Nose: Nose normal. No congestion or rhinorrhea. Mouth/Throat: Mouth: Mucous membranes are moist. Pharynx: Oropharynx is clear. No oropharyngeal exudate or posterior oropharyngeal erythema. Comments: Right tonsillar pillar with superficial arrieta ulceration. Uvula midline Handling secretions. No muffled voice Eyes: General: Right eye: No discharge. Left eye: No discharge. Extraocular Movements: Extraocular movements intact. Conjunctiva/sclera: Conjunctivae normal. Pupils: Pupils are equal, round, and reactive to light. Cardiovascular: Rate and Rhythm: Normal rate and regular rhythm. Pulses: Normal pulses. Heart sounds: Normal heart sounds. No murmur heard. No friction rub. No gallop. Pulmonary: Effort: Pulmonary effort is normal. No respiratory distress. Breath sounds: Normal breath sounds. No stridor. No wheezing, rhonchi or rales. Chest: Chest wall: No tenderness. Abdominal: General: Abdomen is flat. There is no distension. Palpations: Abdomen is soft. There is no mass. Tenderness: There is no abd (more content not included)... Normal [facility] Basic metabolic 2000 panelon 07-17-2023 Anion gap [Moles/Vol] 10 mmol/L 9 - 18 mmol/L [facility] Calcium [Mass/Vol] 9.9 mg/dL 8.5 - 10.2 mg/dL [facility] Chloride [Moles/Vol] 103 mmol/L 97 - 105 mmol/L [facility] CO2 [Moles/Vol] 27 mmol/L 22 - 30 mmol/L [facility] Creatinine [Mass/Vol] 0.91 mg/dL 0.73 - 1.22 mg/dL [facility] Estimated Glomerular Filtration Rate 122 mL/min/1.73m >=60 mL/min/1.73m [facility] Glucose [Mass/Vol] 89 mg/dL 74 - 99 mg/dL [facility] Potassium [Moles/Vol] 4.2 mmol/L 3.7 - 5.1 mmol/L [facility] Sodium [Moles/Vol] 140 mmol/L 136 - 144 mmol/L [facility] Urea nitrogen [Mass/Vol] 10 mg/dL 9 - 24 mg/dL [facility] Anion gap [Moles/Vol] 10 mmol/L Normal 9-18 [facility] Comment on above: Order Comment: Speci men Type: BLOOD SPECIMENOrdering Facility: [facility] Address: [address] [place] [address] Performed By: #### 2 4321-2 ####[facility] LABIA [id number] [place] [address] [place] Calcium [Mass/Vol] 9.9 mg/dL Normal 8.5-10.2 [facility] Comment on above: Order Comment: Speci men Type: BLOOD SPECIMENOrdering Facility: [facility] Address: [address] [place] [address] Performed By: #### 2 4321-2 ####[facility] LABCLIA [id number] [place] [address] [place] Chloride [Moles/Vol] 103 mmol/L Normal 97-105 [facility] Comment on above: Order Comment: Speci men Type: BLOOD SPECIMENOrdering Facility: [facility] Address: [address] [place] [address] Performed By: #### 2 4321-2 ####[facility] LABIA [id number] [place] [address] [place] CO2 [Moles/Vol] 27 mmol/L Normal 22-30 [facility] Comment on above: Order Comment: Speci men Type: BLOOD SPECIMENOrdering Facility: [facility] Address: [address] [place] [address] Performed By: #### 2 4321-2 ####[facility] LABCLIA [id number] [place] [address] [place] Creatinine [Mass/Vol] 0.91 mg/dL Normal 0.73-1.22 [facility] Comment on above: Order Comment: Speci men Type: BLOOD SPECIMENOrdering Facility: [facility] Address: [address] [place] [address] Performed By: #### 2 4321-2 ####[facility] LABIA [id number] [address] STATES OF [facility] Creatinine and Glomerular filtration rate.predicted panel (S/P/Bld) 122 mL/min/1.73m??? Normal >=60 [facility] Comment on above: Order Comment: Speci men Type: BLOOD SPECIMENOrdering Facility: [facility] Address: [address] [place] [address] Result Comment: Sydni mated Glomerular Filtration Rate (eGFR) is calculated using the 2020 CKD-EPI creatinine equation. This equation utilizes serum creatinine, sex, and age as parameters. The creatinine assay has traceable calibration to isotope dilution-mass spectrometry. Refer to KDIGO guidelines for clinical interpretation. In patients with unstable renal function, e.g. those with acute kidney injury, the eGFR may not accurately reflect actual GFR. Performed By: #### 2 4321-2 ####[facility] LABCLIA [id number] [place] [address] [place] Glucose [Mass/Vol] 89 mg/dL Normal 74-99 [facility] Comment on above: Order Comment: Speci men Type: BLOOD SPECIMENOrdering Facility: [facility] Address: [address] [place] [address] Result Comment: The [place] Diabetes Association (ADA) provides guidance for cutoff values for fasting glucose and random glucose. The ADA defines fasting as no caloric intake for at least 8 hours. Fasting plasma glucose results between 100 to 125 mg/dL indicate increased risk for diabetes (prediabetes). Fasting plasma glucose results greater than or equal to 126 mg/dL meet the criteria for diagnosis of diabetes. In the absence of unequivocal hyperglycemia, results should be confirmed by repeat testing. In a patient with classic symptoms of hyperglycemia or hyperglycemic crisis, random plasma glucose results greater than or equal to 200 mg/dL meet the criteria for diagnosis of diabetes. Reference: Standards of Medical Care in Diabetes 2016, [place] Diabetes Association. Diabetes Care. 2016.39(Suppl 1). Performed By: #### 2 4321-2 ####[facility] LABCLIA [id number] [place] [address] [place] Potassium [Moles/Vol] 4.2 mmol/L Normal 3.7-5.1 [facility] Comment on above: Order Comment: Speci men Type: BLOOD SPECIMENOrdering Facility: [facility] Address: [address] [place] [address] Performed By: #### 2 4321-2 ####[facility] LABCLIA [id number] [place] [address] [place] Sodium [Moles/Vol] 140 mmol/L Normal 136-144 [facility] Comment on above: Order Comment: Speci men Type: BLOOD SPECIMENOrdering Facility: [facility] Address: [address] [place] [address] Performed By: #### 2 4321-2 ####[facility] LABCLIA [id number] [place] [address] [place] Urea nitrogen [Mass/Vol] 10 mg/dL Normal 9-24 [facility] Comment on above: Order Comment: Speci men Type: BLOOD SPECIMENOrdering Facility: [facility] Address: [address] [place] [address] Performed By: #### 2 4321-2 ####[facility] LABCLIA [id number] [facility] [id number] [place] [address] [place] CNOVon 07-17-2023 CNOV Office Visit (FPMBHT ) ANTONIOODIN ([id number]) 2 M Date Time Provider Department 07/17/23 11:20 AM JOSE SCHMIDT [facility] During your visit today, we recorded the following information about you: Temperature Pulse Blood pressure Weight 98.1 degrees 69/minute 123/80 100.4 kg Height 1.838 m Jose Schmidt MD 07/17/2023 12:02 PM Signed Patient presents with: Follow Up HPI: Patient presents today for office visit for follow up. MEDICATIONS: No current outpatient medications on file. No current facility-administered medications for this visit. ALLERGIES: ALLERGIES No Known Allergies PAST MEDICAL HISTORY Diagnosis Date PMH - PAST MEDICAL HISTORY OF 10/2006 normal color vision Wrist fracture both wrists PAST SURGICAL HISTORY Procedure Laterality Date CIRCUMCISION,CLAMP,NE WBORN FAMILY HISTORY Problem Relation Age of Onset other (high cholesterol) Mother Cancer Paternal Grandfather lymphoma Hypertension Paternal Grandfather Thyroid Maternal Grandmother Cancer Maternal Grandmother Hypertension Maternal Grandmother Heart Maternal Grandfather Cancer Maternal Grandfather colon other (high cholesterol) Maternal Grandfather Social History Tobacco Use Smoking status: Never Smokeless tobacco: Never Substance Use Topics Alcohol use: No Drug use: No Reviewed current medications, allergies, past medical history, surgical history, family history and social history today. REVIEW OF SYSTEMS HEENT: Negative for frequent or significant headaches, No changes in hearing or vision, no nose bleeds or other nasal problems RESPIRATORY: Negative for cough, hemoptysis, wheezing, COPD, dyspnea or shortness of breath CARDIOVASCULAR: Negative for chest pain, leg swelling, hypertension, CHF or palpitations GI: No nausea, vomiting, or diarrhea : No history of dysuria, frequency or incontinence SKIN: Negative for lesions, rash, and itching All other reviewed and negative other than HPI. HEALTH MAINTENANCE: Reviewed health maintenance issues today and recommended the following in detail. Behavioral Health Screening Never done VITALS: BP 123/80 (BP Site: Right Arm, BP Position: Sitting, BP Cuff Size: Large Adult) Pulse 69 Temp 36.7 ?C (98.1 ?F) (Temporal) Ht 183.8 cm (6' 0.36") Wt 100.4 kg (221 lb 5.5 oz) BMI 29.72 kg/m? Vision is 20/20 Last 4 Encounter Wt Readings: Date: Wt: 07/17/2023 100.4 kg (221 lb 5.5 oz) 01/19/2023 94.4 kg (208 lb 3.2 oz) 01/07/2022 86.4 kg (190 lb 6.4 oz) 12/11/2020 91.5 kg (201 lb 11.2 oz) (92%, Z= 1.44)* PHYSICAL EXAMINATION: General appearance: Well appearing, alert, in no acute distress, well-hydrated, well nourished. Skin: Skin color, texture, turgor normal, no suspicious rashes or lesions Head: Normocephalic, no masses, lesions, tenderness or abnormalities Eyes: Anicteric sclera. Pupils are equally round and reactive to light. Extraocular movements are intact. Normal visual martínez. Ears: External ears normal, canals clear.normal whisper test Nose/Sinuses: Nares normal, septum midline, mucosa normal, no drainage or sinus tenderness Oropharynx: Lips, mucosa, and tongue normal, teeth and gums normal, oropharynx normal Neck: Supple, no adenopathy; thyroid symmetric, normal size, no bruits Back: Normal exam Lungs: Lungs clear to auscultation. No wheezing, rhonchi, rales Heart: RRR without murmur, gallop, or rubs. No ectopy Abdomen: Normal abdominal exam, Abdomen soft, non-tender. Bowel sounds normal. No masses, organomegaly Extremities: No deformities, edema, skin discoloration, clubbing or cyanosis. Good capillary refill. Musculoskeletal: No joint swelling, deformity, or tenderness Peripheral pulses: Normal Neuro: Negative. ASSESSMENT/PLAN: 1. Well adult exam - ICD9: V70.0, ICD10: Z00.00 -forms completed. - BASIC METABOLIC PANEL - HIV 1/2 COMBO WITH REFLEX TO DIFFERENTIATION - URINALYSIS, WITH MICROSCOPIC Jose Schmidt MD Allergies As of Date: 07/17/2023 (No Known Allergies) Date Reviewed: 07/17/2023 Reviewed by: Destinee Munson OCCA - Fully Assessed Reason for Visit: Follow Up [171] Primary Visit Diagnosis:Well adult exam [Z00.00] Order(s):BASIC METABOLIC PANEL [SQBMP] Order #: [id number] FUTURE HIV 1/2 COMBO WITH REFLEX TO DIFFERENTIATION [SQHIV12] Order #: [id number] FUTURE URINALYSIS, WITH MICROSCOPIC [SQUAWMIC] Order #: [id number] FUTURE Problem List As Of Date 07/17/2023 Noted Resolved Dog bite of arm [S41.159A, W54.0XXA] 04/23/2015 Follow-up and Disposition History for Encounter Date Provider Department Center 07/17/2023 [id number] SCHMIDT [facility] Encounter Status:Closed by JOSE SCHMIDT on 07/17/23 Normal [facility] HIV 1+2 Ab IA Qlon 4 HIV 1 and 2 Ab IA.rapid Nom (S/P/Bld) Normal [facility] Comment on above: Order Comment: Speci men Type: BLOOD SPECIMENOrdering Facility: [facility] Address: [address] [place] [address] Result Comment: Test not indicated. Performed By: #### 3 1201-7 ####[facility] LABCLIA [id number] [place] [address] [place] HIV 1+2 Ab+HIV1 p24 Ag IA Ql Non-Reactive Normal Nonreactive [facility] Comment on above: Order Comment: Speci men Type: BLOOD SPECIMENOrdering Facility: [facility] Address: [address] [place] [address] Performed By: #### 3 1201-7 ####[facility] LABCLIA [id number] [place] [address] [place] HIV immunoassay testing algorithm interpretation (S/P/Bld) [Interp] Normal [facility] Comment on above: Order Comment: Speci men Type: BLOOD SPECIMENOrdering Facility: [facility] Address: [address] [place] [address] Result Comment: No e vidence of HIV-1 or HIV-2 infection. Should recent infection be suspected, repeat testing may be considered 2-3 weeks after this draw. [place] Rev. Code 3701.243(E): This information has been disclosed to you from confidential records protected from disclosure by state law. ???You shall make no further disclosure of this information without the specific, written, and informed release of the individual to whom it pertains or as otherwise permitted by state law. A general authorization for the release of medical or other information is not sufficient for the purpose of the release of HIV test results or diagnoses. Performed By: #### 3 1201-7 ####[facility] LABCLIA [id number] [facility] [id number] [place] [address] [place] Urinalysis complete panel (U )on 07-17-2023 Bacteria LM.HPF (Urine sed) [#/Area] Negative Negative /HPF [facility] Bilirubin Ql (U) Negative Negative [facility] Clarity (Unsp spec) Clear Clear [facility] Color (U) Yellow Yellow [facility] Epithelial cells LM.HPF (Urine sed) [#/Area] None Seen [facility] Glucose Test strip (U) [Mass/Vol] Negative Negative [facility] Hemoglobin Ql (U) Negative Negative [facility] Hyaline casts (Urine sed) [#/Area] 0 /[LPF] 0 /LPF [facility] Ketones Ql (U) Negative Negative [facility] Leukocyte esterase Test strip Ql (U) Trace Abnormal Negative [facility] Nitrite Ql (U) Negative Negative [facility] pH (U) 6.5 [pH] <8.5 [facility] Protein (U) [Mass/Vol] Negative Negative [facility] RBC LM.HPF (Urine sed) [#/Area] 0-2 /HPF 0-2 /HPF [facility] Specific gravity (U) [Rel density] 1.024 1.005 - 1.030 [facility] Urobilinogen Ql (U) 1.0 EU/dL 0.2-1.0 EU/dL [facility] WBC LM.HPF (Urine sed) [#/Area] 0-5 /HPF 0-5 /HPF [facility] Bacteria LM.HPF (Urine sed) [#/Area] Negative Normal Negative [facility] Comment on above: Order Comment: Speci men Type: URINE SPECIMENOrdering Facility: [facility] Address: [address] [place] [address] Performed By: #### 2 4356-8 ####[facility] LABCLIA [id number] [place] [address] [place] Bilirubin Ql (U) Negative Normal Negative [facility] Comment on above: Order Comment: Speci men Type: URINE SPECIMENOrdering Facility: [facility] Address: [address] [place] [address] Performed By: #### 2 4356-8 ####[facility] LABCLIA [id number] [place] [address] [place] Clarity (Unsp spec) Clear Normal Clear [facility] Comment on above: Order Comment: Speci men Type: URINE SPECIMENOrdering Facility: [facility] Address: [address] [place] [address] Performed By: #### 2 4356-8 ####[facility] LABCLIA [id number] [place] [address] [place] Color (U) Yellow Normal Yellow [facility] Comment on above: Order Comment: Speci men Type: URINE SPECIMENOrdering Facility: [facility] Address: [address] [place] [address] Performed By: #### 2 4356-8 ####[facility] LABCLIA [id number] [place] [address] [place] Epithelial cells LM.HPF (Urine sed) [#/Area] None Seen Normal [facility] Comment on above: Order Comment: Speci men Type: URINE SPECIMENOrdering Facility: [facility] Address: [address] [place], [place] [address] Performed By: #### 2 4356-8 ####[facility] LABCLIA [id number] [place] [address] [place] Glucose Test strip (U) [Mass/Vol] Negative Normal Negative [facility] Comment on above: Order Comment: Speci men Type: URINE SPECIMENOrdering Facility: [facility] Address: [address] [place] [address] Performed By: #### 2 4356-8 ####[facility] LABCLIA [id number] [place] [address] [place] Hemoglobin Ql (U) Negative Normal Negative [facility] Comment on above: Order Comment: Speci men Type: URINE SPECIMENOrdering Facility: [facility] Address: [address] [place] [address] Performed By: #### 2 4356-8 ####[facility] LABCLIA [id number] [place] [address] [place] Hyaline casts (Urine sed) [#/Area] 0 /[LPF] Normal 0 /LPF [facility] Comment on above: Order Comment: Speci men Type: URINE SPECIMENOrdering Facility: [facility] Address: [address] [place] [address] Performed By: #### 2 4356-8 ####[facility] LABCLIA [id number] [place] [address] [place] Ketones Ql (U) Negative Normal Negative [facility] Comment on above: Order Comment: Speci men Type: URINE SPECIMENOrdering Facility: [facility] Address: [address] [place] [address] Performed By: #### 2 4356-8 ####[facility] LABCLIA [id number] [place] [address] [place] Leukocyte esterase Test strip Ql (U) Trace Abnormal Negative [facility] Comment on above: Order Comment: Speci men Type: URINE SPECIMENOrdering Facility: [facility] Address: [address] [place] [address] Performed By: #### 2 4356-8 ####[facility] LABCLIA [id number] [place] [address] [place] Nitrite Ql (U) Negative Normal Negative [facility] Comment on above: Order Comment: Speci men Type: URINE SPECIMENOrdering Facility: [facility] Address: [address] [place] [address] Performed By: #### 2 4356-8 ####[facility] LABCLIA [id number] [place] [address] [place] pH (U) 6.5 [pH] Normal <8.5 [facility] Comment on above: Order Comment: Speci men Type: URINE SPECIMENOrdering Facility: [facility] Address: [address] [place] [address] Performed By: #### 2 4356-8 ####[facility] LABCLIA [id number] [place] [address] [place] Protein (U) [Mass/Vol] Negative Normal Negative [facility] Comment on above: Order Comment: Speci men Type: URINE SPECIMENOrdering Facility: [facility] Address: [address] [place] [address] Performed By: #### 2 4356-8 ####[facility] LABCLIA [id number] [place] [address] [place] RBC LM.HPF (Urine sed) [#/Area] 0-2 /HPF Normal 0-2 /HPF [facility] Comment on above: Order Comment: Speci men Type: URINE SPECIMENOrdering Facility: [facility] Address: [address] [place] [address] Performed By: #### 2 4356-8 ####[facility] LABCLIA [id number] [place] [address] [place] Specific gravity (U) [Rel density] 1.024 Normal 1.005-1.030 [facility] Comment on above: Order Comment: Speci men Type: URINE SPECIMENOrdering Facility: [facility] Address: [address] [place] [address] Performed By: #### 2 4356-8 ####[facility] LABCLIA [id number] [place] [address] [place] Urobilinogen Ql (U) 1.0 EU/dL Normal 0.2-1.0 EU/dL [facility] Comment on above: Order Comment: Speci men Type: URINE SPECIMENOrdering Facility: [facility] Address: [address] [place] [address] Performed By: #### 2 4356-8 ####[facility] LABCLIA [id number] [place] [address] [place] WBC LM.HPF (Urine sed) [#/Area] 0-5 /HPF Normal 0-5 /HPF [facility] Comment on above: Order Comment: Speci men Type: URINE SPECIMENOrdering Facility: [facility] Address: [address] [place] [address] Performed By: #### 2 4356-8 ####[facility] LABIA [id number] [place] [address] [place] Brain/Head without Contrasto n 09-27-2021 Brain/Head without Contrast [facility] [address] [place] [address] Brain/Head without Contrast MR#: [id number] Acct: [id number] Name: ODIN ALVAREZ Rep #: [id number] : 2000 M 21 From: Benji Barajas PCP: Dr. Soham Laughlin, DO Status: REG ER Study: Brain/Head without Contrast Date of Exam: 08/31 Exam# [id number] Ordering Dr: João Mims MD STUDY: CT BRAIN WITHOUT CONTRAST REASON FOR EXAM: Male, 21 years old. Closed head injury, problems with balance TECHNIQUE: Transaxial CT imaging of the brain was performed without administration of intravenous contrast material. Individualized dose optimization techniques were used for this CT. COMPARISON: None FINDINGS: Normal calvarium. Normal soft tissues. Normal size ventricles and extra-axial spaces for the patient''s age. Normal white matter tracts of the cerebral hemispheres. Normal basal ganglia and thalami. Normal brainstem. Normal cerebellum. There is no intracranial hemorrhage. There are no findings of an acute ischemic infarction. Normal visualized paranasal sinuses. ASPECTS 10 CT/Brain/Head without Contrast IMPRESSION: There are no acute intracranial findings. Electronically Signed: Benji Sanchez MD at 21:34 EDT Reading Location ID and State: [facility] / [place] , Service support , CC: Dr. Soham Laughlin DO; Dr. João Mims MD Management Manager: Signed Normal [facility] Emergency Department Summary on 09-27-2021 Emergency Department Summary [facility] Medical Records Department [address] [place] [address] Emergency Department Summary 09/27/21 MR#: [id number] Acct: [id number] Name: ODIN ALVAREZ Rep #: [id number] : 2000 21 From: João Mims MD PCP: Dr. Soham Laughlin DO Status:REG ER Location: ED HPI History of Present Illness Chief Complaint: Head Injury Detail of Chief Complaint: Closed head injury with balance issues Informant: patient Onset/Context/Timing Onset: Hours (Incident occurred at approximately 1300) Mechanism/Context: Blunt Injury Quality of Pain: Dull and Aching Location: Left frontal parietal region Current Severity: Mild Maximum Severity: Moderate Worsened by: Palpation and activity Relieved by: Nothing Associated Symptoms Associated Symptoms: Positive for Parasthesias (Both hands initially) and - (Patient states if he tilts his head upward he falls and has trouble with his balance); Negative for Weakness, Loss of function, Inability to ambulate, Loss of consciousness or Amnesia Narrative Narrative: Patient is a 21-year-old male who [place]. A metal drinking container fell from 15 feet striking him on the top of the head. He denies loss of conscious he denies being days. He does report headache, not being his normal self and problems with his balance. He denies double vision, blurred vision loss of vision. He denies drainage ears or decreased hearing. He denies trouble with speech or swallowing. He denies neck pain. He denies cardiac respiratory symptoms. He does endorse nausea without vomiting diarrhea. He has no other complaints. He is on no medication. Tetanus Immunization: <5 years Prior similar symptoms: No Recent Illness/Hospitalizati on: No PFSH PFSH Medical History no medical history no medical history Allergy/AdvReac Type Severity Reaction Status Date / Time No Known Allergies Allergy Verified 09/27/21 20:39 Social History (Updated 09/27/21 @ 21:[address] João Mims MD) household members: family Smoking Status: Never smoker substance use type: does not use ROS ROS ED Constitutional Constitutional ED: Denies chills, fever(s) or sweats Eyes Eyes: Denies blurry vision or change in vision ENT ENT ED: Reports other Details: He denies epistaxis ; Denies ear pain, rhinorrhea or sore throat Cardiovascular Cardiovascular: Denies chest pain or palpitations Respiratory/Chest Respiratory/Chest: Denies cough or dyspnea Gastrointestinal Gastrointestinal: Reports nausea; Denies abdominal pain or vomiting Musculoskeletal Musculoskeletal: Denies arthralgias, back pain, myalgias or neck pain Integumentary Denies abscess, Abrasions or rash Neurologic Neurologic: Reports headache(s); Denies paresthesias or weakness Psychiatric Psychiatric: Denies anxiety Hematologic/Lymphatic Hematologic/Lymphatic : Denies easy bleeding, easy bruising or lymphadenopathy EXAM Physical Exam Const Vital Signs: 09/27/21 20:37 09/27/21 20:57 Temperature 98.2 F Temperature Source Temporal Pulse Rate 88 Respiratory Rate 16 Respiratory Effort Normal Non-Labored Respiratory Depth Normal Respiratory Pattern Normal Blood Pressure 137/83 H Blood Pressure Mean 101 Pulse Ox 98 Oxygen Delivery Method Room Air Room Air Positive well nourished and well developed Constitutional Narrative: He is quiet. His psychomotor skills are slow. General Appearance ED: well developed and NAD HEENT Reports TM's clear atraumatic; Negative for trauma or tenderness Nose: Negative for septum abnormal Tympanic Membrane ED: Yes TM's clear right (Unable to see due to significant cerumen in the external auditory canal) Eyes PERRL and EOMs intact bilaterally Neck full ROM General: Negative for tenderness Resp normal respiratory effort and clear to auscultation bilaterally Cardio regular rhythm, S1 normal heart sound, S2 normal heart sound and no murmurs GI normal to inspection, nondistended, normoactive bowel sounds, non-tender and non-distended Back/Spine normal to inspection and no thoracic nor lumbar tenderness Extremity normal to inspection and full ROM Neuro oriented x3, CN's II-XII intact bilaterally, moves all extremities, no focal motor deficits and no sensory deficits noted Neuro Narrative: Gait is normal. Able to walk on heels or toes. Tandem gait is abnormal and he falls to the right. Romberg with eyes open and close are negative. [place] Coma Scale: document GCS findings Spontaneous Obeys Commands Oriented 15 Sensorium / Orientation: alert, oriented to person, oriented to place and oriented to time Motor Exam: strength 5/5 throughout Deep Tendon Reflexes: Rt Triceps (C7): 2+, Lt Triceps (C7): 2+, Rt Biceps (C5, C6): 2+, Lt Biceps (C5, C6): 2+, Rt Brachioradialis (C6): 2+, Lt Brachioradialis (C6) (more content not included)... Normal [facility] Vital Signs Date Time Vital Sign Value Performing Clinician Facility 06-04-2024 13:30-0500 Body mass index (BMI) [Ratio] 28 kg/m2 Jarad Teague MD Work Phone: [facility] 06-04-2024 13:30-0500 Body temperature 98.29 [degF] Jarad Teague MD Work Phone: [facility] 06-04-2024 13:30-0500 Body weight 94.6 kg Jarad Teague MD Work Phone: [facility] 03-07-2025 13:30-0500 Diastolic blood pressure 80 mm[Hg] Jarad Teague MD Work Phone: [facility] 06-04-2024 13:30-0500 Heart rate 64 /min Jarad Teague MD Work Phone: [facility] 06-04-2024 13:30-0500 Respiratory rate 18 /min Jarad Teague MD Work Phone: [facility] 06-04-2024 13:30-0500 SaO2% (BldA) [Mass fraction] 100 % Jarad Teague MD Work Phone: [facility] 06-04-2024 13:30-0500 Systolic blood pressure 119 mm[Hg] Jarad Teague MD Work Phone: [facility] 03-30-2024 13:00-0500 Diastolic blood pressure 85 mm[Hg] Darwin Golias PT Work Phone: [facility] 03-30-2024 13:00-0500 Heart rate 88 /min Darwin Golias PT Work Phone: [facility] 03-30-2024 13:00-0500 Systolic blood pressure 147 mm[Hg] Darwin Golias PT Work Phone: [facility] 02-27-2024 13:16-0500 Body height 183.8 cm Jose Schmidt MD Work Phone: [facility] 02-27-2024 13:16-0500 Body mass index (BMI) [Ratio] 29.84 kg/m2 Jose Schmidt MD Work Phone: [facility] 02-27-2024 13:16-0500 Body weight 100.8 kg Jose Schmidt MD Work Phone: [facility] 02-27-2024 13:16-0500 Diastolic blood pressure 80 mm[Hg] Jose Schmidt MD Work Phone: [facility] 02-27-2024 13:16-0500 Heart rate 81 /min Jose Schmidt MD Work Phone: [facility] 02-27-2024 13:16-0500 Systolic blood pressure 127 mm[Hg] Jose Schmidt MD Work Phone: [facility] 10-20-2023 11:06-0400 Body mass index (BMI) [Ratio] 29.31 kg/m2 Khadijah Moreno SL[employer] TRIPPER.FILM SOUND ENGINEER Work Phone: [facility] 10-20-2023 11:06-0400 Body temperature 96.8 [degF] Khadijah Moreno [employer] TRIPPER.FILM SOUND ENGINEER Work Phone: [facility] 10-20-2023 11:06-0400 Body weight 99 kg Khadijah Moreno [employer] TRIPPER.FILM SOUND ENGINEER Work Phone: [facility] 10-20-2023 11:06-0400 Diastolic blood pressure 80 mm[Hg] Khadijah Moreno SLAB TRIPPER.FILM SOUND ENGINEER Work Phone: [facility] 10-20-2023 11:06-0400 Heart rate 64 /min Khadijah Moreno SLAB TRIPPER.FILM SOUND ENGINEER Work Phone: [facility] 10-20-2023 11:06-0400 Respiratory rate 18 /min Khadijah Moreno SLAB TRIPPER.FILM SOUND ENGINEER Work Phone: [facility] 10-20-2023 11:06-0400 SaO2% (BldA) [Mass fraction] 98 % Khadijah Moreno SLAB TRIPPER.FILM SOUND ENGINEER Work Phone: [facility] 10-20-2023 11:06-0400 Systolic blood pressure 110 mm[Hg] Khadijah Moreno SLAB TRIPPER.FILM SOUND ENGINEER Work Phone: [facility] 08-20-2023 13:02-0400 Body mass index (BMI) [Ratio] 29.75 kg/m2 Delmer Wilkerson SL[employer] TRIPPER.FILM SOUND ENGINEER Work Phone: [facility] 08-20-2023 13:02-0400 Body temperature 97.2 [degF] Delmer Wilkerson [employer] TRIPPER.FILM SOUND ENGINEER Work Phone: [facility] 08-20-2023 13:02-0400 Body weight 100.5 kg Delmer Wilkerson SL[employer] TRIPPER.FILM SOUND ENGINEER Work Phone: [facility] 08-20-2023 13:02-0400 Diastolic blood pressure 72 mm[Hg] Delmer Wilkerson SL[employer] TRIPPER.FILM SOUND ENGINEER Work Phone: [facility] 08-20-2023 13:02-0400 Heart rate 83 /min Delmer Wilkerson SL[employer] TRIPPER.FILM SOUND ENGINEER Work Phone: [facility] 08-20-2023 13:02-0400 Respiratory rate 16 /min Delmer Wilkerson SLAB TRIPPER.FILM SOUND ENGINEER Work Phone: [facility] 08-20-2023 13:02-0400 SaO2% (BldA) [Mass fraction] 98 % Delmer Wilkerson SLAB TRIPPER.FILM SOUND ENGINEER Work Phone: [facility] 08-20-2023 13:02-0400 Systolic blood pressure 128 mm[Hg] Delmer Wilkerson SL[employer] TRIPPER.FILM SOUND ENGINEER Work Phone: [facility] 07-17-2023 10:56-0400 Body height 183.8 cm Jose Schmidt MD Work Phone: [facility] 07-17-2023 10:56-0400 Body temperature 98.1 [degF] Jose Schmidt MD Work Phone: [facility] 07-17-2023 10:56-0400 Body weight 100.4 kg Jose Schmidt MD Work Phone: [facility] 07-17-2023 10:56-0400 Diastolic blood pressure 80 mm[Hg] Jose Schmidt MD Work Phone: [facility] 07-17-2023 10:56-0400 Heart rate 69 /min Jose Schmidt MD Work Phone: [facility] 07-17-2023 10:56-0400 Systolic blood pressure 123 mm[Hg] Jose Schmidt MD Work Phone: [facility] 01-23-2023 10:50-0400 Body height 185.4 cm Jose Schmidt MD Work Phone: [facility] 01-23-2023 10:50-0400 Diastolic blood pressure 78 mm[Hg] Jose Schmidt MD Work Phone: [facility] 01-23-2023 10:50-0400 Heart rate 73 /min Jose Schmidt MD Work Phone: [facility] 01-23-2023 10:50-0400 Respiratory rate 16 /min Jose Schmidt MD Work Phone: [facility] 01-23-2023 10:50-0400 SaO2% (BldA) [Mass fraction] 95 % Jose Schmidt MD Work Phone: [facility] 01-23-2023 10:50-0400 Systolic blood pressure 128 mm[Hg] Jose Schmidt MD Work Phone: [facility] 01-19-2023 13:26-0400 Body temperature 97.59 [degF] Khadijah Pendlebury SL[employer] TRIPPER.FILM SOUND ENGINEER Work Phone: [facility] 01-19-2023 13:26-0400 Body weight 94.44 kg Khadijah Pendlebury [employer] TRIPPER.FILM SOUND ENGINEER Work Phone: [facility] 01-19-2023 13:26-0400 Diastolic blood pressure 80 mm[Hg] Khadijah Pendlebury [employer]AB TRIPPER.FILM SOUND ENGINEER Work Phone: [facility] 01-19-2023 13:26-0400 Heart rate 74 /min Khadijah Pendlebury SLAB TRIPPER.FILM SOUND ENGINEER Work Phone: [facility] 01-19-2023 13:26-0400 Respiratory rate 16 /min Khadijah Pendlebury SLAB TRIPPER.FILM SOUND ENGINEER Work Phone: [facility] 01-19-2023 13:26-0400 SaO2% (BldA) [Mass fraction] 98 % Khadijah Pendlebury SLAB TRIPPER.FILM SOUND ENGINEER Work Phone: [facility] 01-19-2023 13:26-0400 Systolic blood pressure 122 mm[Hg] Khadijah Pendlebury [employer]AB TRIPPER.FILM SOUND ENGINEER Work Phone: [facility] 01-07-2022 14:13-0400 Body height 185.4 cm Soham Laughlin DO Work Phone: [facility] 01-07-2022 14:13-0400 Body temperature 98.2 [degF] Soham Laughlin DO Work Phone: [facility] 01-07-2022 14:13-0400 Body weight 86.36 kg Soham Laughlin DO Work Phone: [facility] 01-07-2022 14:13-0400 Diastolic blood pressure 74 mm[Hg] Soham Laughlin DO Work Phone: [facility] 01-07-2022 14:13-0400 Heart rate 78 /min Soham Laughlin DO Work Phone: [facility] 01-07-2022 14:13-0400 SaO2% (BldA) [Mass fraction] 99 % Soham Laughlin DO Work Phone: [facility] 01-07-2022 14:13-0400 Systolic blood pressure 130 mm[Hg] Soham Laughlin DO Work Phone: [facility] 09-27-2021 22:21-0400 Heart rate 89 /min [facility] Work Phone: 09-27-2021 22:21-0400 Respiratory rate 18 /min [facility] Work Phone: 09-27-2021 22:21-0400 SaO2% (BldA) [Mass fraction] 98 % [facility] Work Phone: 09-27-2021 20:37-0400 Body height 185.42 cm [facility] Work Phone: 09-27-2021 20:37-0400 Body mass index (BMI) [Ratio] 24.5 kg/m2 [facility] Work Phone: 09-27-2021 20:37-0400 Body temperature 98.2 [degF] [facility] Work Phone: 09-27-2021 20:37-0400 Body weight 84.3 kg [facility] Work Phone: 09-27-2021 20:37-0400 Diastolic blood pressure 83 mm[Hg] [facility] Work Phone: 09-27-2021 20:37-0400 Systolic blood pressure 137 mm[Hg] [facility] Work Phone: Encounters Encounter Date Encounter Type Care Provider Facility Start: 06-04-2024 End: 06-04-2024 ambulatory JOSE SCHMIDT Facility:[facility] Start: 06-04-2024 End: 06-04-2024 Office outpatient visit 25 minutes Jarad Teague MD Work Phone: [facility] Comment on above: Aphthous ulcer of mo ut (Primary Dx) Start: 05-21-2024 End: 05-21-2024 ambulatory Darwin Golias PT Work Phone: [facility] Comment on above: Acute bilateral low back pain without sciatica (Primary Dx) Start: 05-07-2024 End: 05-07-2024 ambulatory Darwin Golias PT Work Phone: [facility] Comment on above: Acute bilateral low back pain without sciatica (Primary Dx) Start: 04-30-2024 End: 04-30-2024 ambulatory Darwin Golias PT Work Phone: [facility] Comment on above: Acute bilateral low back pain without sciatica (Primary Dx) Start: 04-15-2024 End: 04-15-2024 ambulatory Emma Kashuba VEGETABLE VENDOR Work Phone: [facility] Comment on above: Acute bilateral low back pain without sciatica (Primary Dx) Start: 04-09-2024 End: 04-09-2024 ambulatory Emma Kashuba VEGETABLE VENDOR Work Phone: [facility] Comment on above: Acute bilateral low back pain without sciatica (Primary Dx) Start: 03-30-2024 End: 03-30-2024 ambulatory Darwin Golias PT Work Phone: [facility] Comment on above: Acute bilateral low back pain without sciatica (Primary Dx); Low back pain with sciatica, sciatica laterality unspecified, unspecified back pain laterality, unspecified chronicity Start: 03-03-2024 End: 03-04-2024 ambulatory Jose Schmidt MD Work Phone: [facility] [place] Comment on above: Lower Back Pain Start: 02-27-2024 End: 02-27-2024 Subsequent hospital visit by physician [facility] Work Phone: Radiology Comment on above: Acute midline low ba ck pain without sciatica [M54.50] Start: 02-27-2024 End: 02-27-2024 Patient encounter procedure Jose Schmidt MD Work Phone: [facility] [place] Comment on above: Acute midline low ba ck pain without sciatica (Primary Dx) Start: 02-27-2024 End: 02-27-2024 ambulatory [facility] Facility:[facility] Start: 10-20-2023 End: 10-20-2023 ambulatory [facility] Facility:[facility] Start: 10-20-2023 End: 10-20-2023 Office outpatient visit 25 minutes Khadijah Moreno SLAB TRIPPER.FILM SOUND ENGINEER Work Phone: [facility] Comment on above: Cellulitis of skin ( Primary Dx) Start: 08-20-2023 End: 08-20-2023 ambulatory [facility] Facility:[facility] Start: 08-20-2023 End: 08-20-2023 Patient encounter procedure Delmer Wilkerson SLAB TRIPPER.FILM SOUND ENGINEER Work Phone: [facility] Comment on above: Ulcer of tonsil (Candace erik Dx) Start: 07-17-2023 End: 07-17-2023 ambulatory [facility] Facility:[facility] Start: 07-17-2023 End: 07-17-2023 Patient encounter procedure Jose Schmidt MD Work Phone: Family [facility] Comment on above: Well adult exam (Candace erik Dx) Start: 07-17-2023 End: 07-17-2023 Patient encounter status Jose Schmidt MD Work Phone: [facility] Work Phone: Start: 01-23-2023 End: 01-23-2023 Patient encounter procedure Jose Schmidt MD Work Phone: [facility] Comment on above: Well adult health ch michelle (Primary Dx) Start: 01-23-2023 End: 01-23-2023 Patient encounter status Jose Schmidt MD Work Phone: [facility] Work Phone: Start: 01-19-2023 End: 01-19-2023 Office outpatient visit 15 minutes Khadijah Moreno APRN.FILM SOUND ENGINEER Work Phone: [facility] Comment on above: Bilateral hearing lo ss due to cerumen impaction (Primary Dx) Start: 01-07-2022 End: 01-07-2022 Patient encounter procedure Soham Laughlin DO Work Phone: [facility] Comment on above: Encounter for genera l adult medical examination without abnormal findings (Primary Dx); Encounter for immunization Start: 01-07-2022 End: 01-07-2022 Patient encounter status Soham Laughlin DO Work Phone: [facility] Start: 12-06-2021 ambulatory Soham Laughlin DO Work Phone: [facility] Comment on above: Sore Throat Start: 12-05-2021 End: 12-05-2021 ambulatory Morris Quinonez APRN.FILM SOUND ENGINEER Work Phone: Telemedicine Comment on above: COVID-19 (Primary Dx ); Acute pharyngitis, unspecified etiology RESULTS Start: 12-05-2021 E-mail encounter fro m caregiver Morris Quinonez APRN.CNP Work Phone: [facility] Start: 12-05-2021 End: 12-05-2021 Telemedicine consultation with patient Aisharenetta Cristiano GILBERT Work Phone: [facility] Start: 09-27-2021 End: 09-27-2021 Emergency department patient visit [facility] Procedures Date Procedure Procedure Detail Performing Clinician Start: 06-04-2024 STREP A MOLECULAR (POC) Jarad Teague MD Work Phone: Start: 02-27-2024 Radex spine lumbosac ral 2/3 views Jose Schmidt MD Work Phone: Start: 09-27-2021 CT of head without contrast Start: 12-11-2020 Adult depression scr eening assessment Morris Cristiano SLAB TRIPPER.FILM SOUND ENGINEER Work Phone: Plan of Treatment Date Care Activity Detail Author Start: 01-08-2032 Urine microalbumin profile [facility] Start: 05-21-2024 End: 05-21-2024 ambulatory 05/21/2024 2:00 PM EST OT/PT/Speech Visit [facility] [address] [place] [address] Golias, Darwin, PT [address] [place] [address] Low back pain with sciatica, sciatica laterality unspecified, unspecified back pain laterality, unspecified chronicity [M54.40] [facility] Comment on above: Low back pain with s ciatica, sciatica laterality unspecified, unspecified back pain laterality, unspecified chronicity [M54.40] Start: 05-14-2024 End: 05-14-2024 ambulatory 05/14/2024 2:00 PM EST OT/PT/Speech Visit [facility] [address] [place] [address] Golias, Darwin, PT [address] [place] [address] Low back pain with sciatica, sciatica laterality unspecified, unspecified back pain laterality, unspecified chronicity [M54.40] [facility] Comment on above: Low back pain with s ciatica, sciatica laterality unspecified, unspecified back pain laterality, unspecified chronicity [M54.40] Start: 05-12-2024 End: 05-12-2024 ambulatory 05/12/2024 4:45 PM EST OT/PT/Speech Visit [facility] [address] [place] [address] Golias, Darwin, PT [address] [place] [address] Low back pain with sciatica, sciatica laterality unspecified, unspecified back pain laterality, unspecified chronicity [M54.40] [facility] Comment on above: Low back pain with s ciatica, sciatica laterality unspecified, unspecified back pain laterality, unspecified chronicity [M54.40] Start: 05-07-2024 End: 05-07-2024 ambulatory 05/07/2024 3:00 PM EST OT/PT/Speech Visit [facility] [address] [place] [address] Golias, Darwin, PT [address] [place] [address] Low back pain with sciatica, sciatica laterality unspecified, unspecified back pain laterality, unspecified chronicity [M54.40] [facility] Comment on above: Low back pain with s ciatica, sciatica laterality unspecified, unspecified back pain laterality, unspecified chronicity [M54.40] Start: 04-30-2024 End: 04-30-2024 ambulatory 04/30/2024 3:00 PM EST OT/PT/Speech Visit [facility] [address] [place] [address] Golias, Darwin, PT [address] [place] [address] Low back pain with sciatica, sciatica laterality unspecified, unspecified back pain laterality, unspecified chronicity [M54.40] [facility] Comment on above: Low back pain with s ciatica, sciatica laterality unspecified, unspecified back pain laterality, unspecified chronicity [M54.40] Start: 04-23-2024 End: 04-23-2024 ambulatory 04/23/2024 1:00 PM EST OT/PT/Speech Visit [facility] [address] [place] [address] Golias, Darwin, PT [address] [place] [address] Low back pain with sciatica, sciatica laterality unspecified, unspecified back pain laterality, unspecified chronicity [M54.40] [facility] Comment on above: Low back pain with s ciatica, sciatica laterality unspecified, unspecified back pain laterality, unspecified chronicity [M54.40] Start: 04-09-2024 End: 04-09-2024 ambulatory 04/09/2024 1:15 PM EST OT/PT/Speech Visit [facility] [address] [place] [address] Emma Pratt, VEGETABLE VENDOR [address] [place] [address] Low back pain with sciatica, sciatica laterality unspecified, unspecified back pain laterality, unspecified chronicity [M54.40] [facility] Comment on above: Low back pain with s ciatica, sciatica laterality unspecified, unspecified back pain laterality, unspecified chronicity [M54.40] Start: 03-30-2024 End: 03-30-2024 ambulatory 03/30/2024 1:15 PM EST OT/PT/Speech Visit [facility] [address] [place] [address] GoliasJunient, PT [address] [place] [address] My issue with my lower back. [facility] Comment on above: My issue with my low er back. Start: 01-24-2024 Covid-19 Vaccine (#1) Covid-19 Vacci ne (#1) [facility] Comment on above: Postponed from 07/15 (Declined at this time) Start: 01-24-2024 Covid-19 Vaccine ( season) Covid-19 Vaccine ( season) [facility] Comment on above: Postponed from 11/29 (Declined at this time) Start: 01-24-2024 HPV Vaccine (1 - Mal e 2-dose series) HPV Vaccine (1 - Male 2-dose series) [facility] Comment on above: Postponed from 01/14 (Declined at this time) Start: 01-24-2024 HPV Vaccine (1 - Mal e 3-dose series) HPV Vaccine (1 - Male 3-dose series) [facility] Comment on above: Postponed from 01/14 (Declined at this time) Start: 01-24-2024 Meningococcal B Vacc ine: Consider Based On Risk (1 of 2 - Patient Seeks Protection) Meningococcal B Vaccine: Consider Based On Risk (1 of 2 - Patient Seeks Protection) [facility] Comment on above: Postponed from 01/14 (Declined at this time) Start: 11-30-2023 Covid-19 Vaccine ( season) Covid-19 Vaccine ( season) [facility] Start: 11-30-2023 Influenza vaccination [facility] Start: 09-28-2023 Influenza vaccination Influenza Vacc ine (#1) [facility] Comment on above: Postponed from 11/29 (Declined at this time) Start: 07-17-2023 End: 10-16-2023 HIV 1+2 Ab [Presence] in Serum or Plasma by Immunoassay [facility] Work Phone: Comment on above: Expected: 07/17/2023 , Expires: 10/16/2023 Start: 03-31-2023 Behavioral Health Screening Behavioral Health Screening [facility] Start: 11-29-2022 Influenza vaccination Influenza Vacc ine (#1) [facility] Start: 03-31-2022 Depression Assessment Depression Ass essment [facility] Start: 01-28-2022 Urine microalbumin profile DTAP,TDAP,TD (7 - Td or Tdap) [facility] Start: 12-11-2021 Adult depression screening assessment DEPRESSION SCREENING [facility] Start: 11-29-2021 Influenza vaccination INFLUENZA (#1) [facility] Start: 03-31-2021 DEPRESSION ASSESSMENT DEPRESSION ASS ESSMENT [facility] Start: 2019 Anxiety Screening Anxiety Screening [facility] Start: 2019 Depression Screening Depression Scre ening [facility] Start: 2019 HEPATITIS C SCREENING HEPATITIS C SC LIGIA [facility] Start: 2019 HIV SCREENING HIV SCREENING [facility] Start: 2017 Meningococcal B Vacc ine (1 of 2 - Standard) Meningococcal B Vaccine (1 of 2 - Standard) [facility] Start: 2017 Meningococcal B Vacc ine: Consider Based On Risk (1 of 2 - Patient Seeks Protection) Meningococcal B Vaccine: Consider Based On Risk (1 of 2 - Patient Seeks Protection) [facility] Start: 01-15-2016 HPV Vaccine (1 - Mal e 3-dose series) HPV Vaccine (1 - Male 3-dose series) [facility] Start: 2015 PEDS TO ADULT TRANSI TION ANNUAL ASSESSMENT PEDS TO ADULT TRANSITION ANNUAL ASSESSMENT [facility] Start: 01-15-2012 HPV VACCINE (1 - Mal e 2-dose series) HPV VACCINE (1 - Male 2-dose series) [facility] Start: 2011 MENINGOCOCCAL B: Consider based on risk (1 of 2 - Risk Bexsero 2-dose series) MENINGOCOCCAL B: Consider based on risk (1 of 2 - Risk Bexsero 2-dose series) [facility] Start: 2010 HPV Vaccine (1 - Mal e 2-dose series) HPV Vaccine (1 - Male 2-dose series) [facility] Start: 2001 COVID-19 VACCINE (#1) COVID-19 VACCI NE (#1) [facility] Patient Education ED Concussion [facility] Work Phone: Patient referral [facility] Work Phone: STREP A MOLECULAR (POC) STREP A MOLECULAR (POC) Microbiology Routine Acute pharyngitis, unspecified etiology Ordered: 12/05/2021 [facility] Work Phone: Comment on above: Ordered: 12/05/2021 [facility] Immunizations Immunization Date Immunization Notes Care Provider Levon mesa 01-07-2022 tetanus toxoid, redu ginger diphtheria toxoid, and acellular pertussis vaccine, adsorbed Soham Laughlin DO Work Phone: [facility] 01-01-2019 meningococcal oligosaccharide (groups A, C, Y and W-135) diphtheria toxoid conjugate vaccine (MCV4O) Shaneeka Rice SLAB TRIPPER.FILM SOUND ENGINEER Work Phone: [facility] 01-01-2019 varicella virus vaccine Shan eeka Rice SLAB TRIPPER.FILM SOUND ENGINEER Work Phone: [facility] 01-29-2012 influenza virus vacc ine, live, attenuated, for intranasal use Shaneeka Rice SLAB TRIPPER.FILM SOUND ENGINEER Work Phone: [facility] Work Phone: 01-29-2012 Meningococcal, MCV4, unspecified conjugate formulation(groups A, C, Y and W-135) Shaneeka Rice SLAB TRIPPER.FILM SOUND ENGINEER Work Phone: [facility] Work Phone: 01-29-2012 tetanus toxoid, redu ginger diphtheria toxoid, and acellular pertussis vaccine, adsorbed Shaneeka Rice SLAB TRIPPER.FILM SOUND ENGINEER Work Phone: [facility] Work Phone: 01-29-2012 varicella virus vaccine Shan eeka Rice SLAB TRIPPER.FILM SOUND ENGINEER Work Phone: [facility] Work Phone: 01-29-2012 influenza virus vacc ine, unspecified formulation Khadijah Moreno SLAB TRIPPER.FILM SOUND ENGINEER Work Phone: [facility] 02-14-2005 diphtheria, tetanus toxoids and acellular pertussis vaccine Shaneeka Rice SLAB TRIPPER.FILM SOUND ENGINEER Work Phone: [facility] Work Phone: 02-14-2005 measles, mumps and rubella virus vaccine Shaneeka Rice SLAB TRIPPER.FILM SOUND ENGINEER Work Phone: [facility] Work Phone: 02-14-2005 poliovirus vaccine, inactivated Shaneeka Rice SLAB TRIPPER.FILM SOUND ENGINEER Work Phone: [facility] Work Phone: 04-13-2002 diphtheria, tetanus toxoids and acellular pertussis vaccine Shaneeka Rice SLAB TRIPPER.FILM SOUND ENGINEER Work Phone: [facility] Work Phone: 04-13-2002 pneumococcal conjuga te vaccine, 7 valent Shaneeka Rice SLAB TRIPPER.FILM SOUND ENGINEER Work Phone: [facility] Work Phone: 2002 haemophilus influenz ae type b vaccine, HbOC conjugate Shaneeka Rice SLAB TRIPPER.FILM SOUND ENGINEER Work Phone: [facility] Work Phone: 2002 measles, mumps and rubella virus vaccine Shaneeka Rice SLAB TRIPPER.[facility] Work Phone: [facility] Work Phone: 2002 varicella virus vaccine Shan eeka Rice SLAB TRIPPER.[facility] Work Phone: [facility] Work Phone: 2001 hepatitis B vaccine, pediatric or pediatric/adolescent dosage Shaneeka Rice SLAB TRIPPER.[facility] Work Phone: [facility] Work Phone: 2001 diphtheria, tetanus toxoids and acellular pertussis vaccine Shaneeka Rice SLAB TRIPPER.FILM SOUND ENGINEER Work Phone: [facility] Work Phone: 2001 haemophilus influenz ae type b vaccine, HbOC conjugate Shaneeka Rice SLAB TRIPPER.FILM SOUND ENGINEER Work Phone: [facility] Work Phone: 2001 pneumococcal conjuga te vaccine, 7 valent Shaneeka Rice SLAB TRIPPER.FILM SOUND ENGINEER Work Phone: [facility] Work Phone: 2001 poliovirus vaccine, inactivated Shaneeka Rice SLAB TRIPPER.[facility] Work Phone: [facility] Work Phone: 2001 diphtheria, tetanus toxoids and acellular pertussis vaccine Shaneeka Rice SLAB TRIPPER.FILM SOUND ENGINEER Work Phone: [facility] Work Phone: 2001 haemophilus influenz ae type b vaccine, HbOC conjugate Shaneeka Rice SLAB TRIPPER.FILM SOUND ENGINEER Work Phone: [facility] Work Phone: 2001 pneumococcal conjuga te vaccine, 7 valent Shaneeka Rice SLAB TRIPPER.FILM SOUND ENGINEER Work Phone: [facility] Work Phone: 2001 poliovirus vaccine, inactivated Shaneeka Rice SLAB TRIPPER.[facility] Work Phone: [facility] Work Phone: 2001 diphtheria, tetanus toxoids and acellular pertussis vaccine Shaneeka Rice SLAB TRIPPER.[facility] Work Phone: [facility] Work Phone: 2001 haemophilus influenz ae type b vaccine, HbOC conjugate Shaneeka Rice SLAB TRIPPER.FILM SOUND ENGINEER Work Phone: [facility] Work Phone: 2001 pneumococcal conjuga te vaccine, 7 valent Shaneeka Rice SLAB TRIPPER.FILM SOUND ENGINEER Work Phone: [facility] Work Phone: 2001 poliovirus vaccine, inactivated Shaneeka Rice SLAB TRIPPER.FILM SOUND ENGINEER Work Phone: [facility] Work Phone: 2001 hepatitis B vaccine, pediatric or pediatric/adolescent dosage Shaneeka Rice SLAB TRIPPER.[facility] Work Phone: [facility] Work Phone: 2001 hepatitis B vaccine, pediatric or pediatric/adolescent dosage Shaneeka Rice SLAB TRIPPER.[facility] Work Phone: [facility] Work Phone: Payers Date Payer Category Payer Private Health Insurance [id number] 2011 Private Health Insurance [id number] Private Health Insurance [facility] *DO NOT USE* [id number] Unknown [facility] *DO NOT USE* [id number] Social History Date Type Detail Facility Start: 09-27-2021 Tobacco smoking stat us [facility] Unknown if ever smoked [facility] Work Phone: Start: 2001 Sex Assigned At Male [facility] Start: 03-08-2019 End: 01-19-2023 Tobacco smoking status NHIS Never smoked tobacco [facility] Work Phone: Start: 03-08-2019 End: 01-19-2023 Tobacco use and exposure Smokeless tobacco non-user [facility] Work Phone: Start: 12-05-2021 End: 06-04-2024 Alcohol intake Current non-drinker of alcohol (finding) [facility] Start: 12-11-2020 History SDOH Financial 5 [facility] Start: 12-11-2020 History SDOH Food Worry 1 [facility] Start: 12-11-2020 History SDOH Transpo rt Med 2 [facility] Start: 12-28-2021 End: 01-07-2022 Exposure to SARS-CoV-2 (event) Not sure [facility] Start: 01-19-2023 End: 01-21-2023 History of Social function [facility] Start: 01-19-2023 End: 01-21-2023 Tobacco use panel [facility] How hard is it for y ou to pay for the very basics like food, housing, medical care, and heating Not hard at all [facility] (I/We) worried wheloki er (my/our) food would run out before (I/we) got money to buy more. Never true [facility] In the past 12 month s, was there a time when you were not able to pay the mortgage or rent on time? No [facility] Start: 12-11-2020 Gender identity Identifies as male gender (finding) [facility] Start: 12-11-2020 Sexual orientation Heterosexual (naty jacob) [facility] Are you now , , , , never or living with a partner? Never [facility] How often to you hav e a drink containing alcohol? 2-4 times a month [facility] How many standard drinks containing alcohol do you have on a typical day? 1 or 2 [facility] How often do you hav e 6 or more drinks on 1 occasion? Never [facility] How hard is it for y ou to pay for the very basics like food, housing, medical care, and heating Not very hard [facility] Do you feel stress - tense, restless, nervous, or anxious, or unable to sleep at night because your mind is troubled all the time - these days [OSQ] To some extent [facility] Functional Status Date Assessment Result Facility 08-02-2014 Are you deaf, or do you have serious difficulty hearing No 08/02/2014 12:07 PM Leila Osman, [place] No [facility] 08-02-2014 Are you blind, or do you have serious difficulty seeing, even when wearing glasses No 08/02/2014 12:07 PM Leila Osman, [place] No [facility] 08-02-2014 Do you have serious difficulty walking or climbing stairs No 08/02/2014 12:07 PM Leila Osman, [place] No [facility] 08-02-2014 Do you have difficul ty dressing or bathing No 08/02/2014 12:07 PM Leila Osman, [place] No [facility] Mental Status Date Assessment Result Facility 08-02-2014 Because of a physica l, mental, or emotional condition, do you have serious difficulty concentrating, remembering, or making decisions No 08/02/2014 12:07 PM Leila Osman, [place] No [facility] Clinical Notes 12-05-2021 to 06-04-2024 Jarad Teague MD - 06/04/2024 1:43 PM Darwin Oliva, PT - 05/21/2024 10:13 AM Darwin Oliva, PT - 05/07/2024 4:24 PM Darwin Oliva, PT - 04/30/2024 4:40 PM ESTPatient Instructions Note Date & Type Note Facility 06-04-2024 Note HNO ID: [id number] Author: JARAD TEAGUE MD Service: ? Author Type: Physician Type: Progress Notes Filed: 06/04/2024 14:08 Note Text: [facility] Subjective Odin Alvarez is a 24 year old male. Patient presents with: Mouth Sores: Sore on uvula x2 days Patient presents with painful ulcers on his uvula for the last 3 days. Is difficult to swallow. He has had aphthous ulcers previously; has outbreaks a few times per year. He has a headache but no other symptoms. He has taken acetaminophen. Salt water gargles hurt and are difficult to get back far enough. Review of Systems Constitutional: Negative for chills and fever. HENT: Positive for mouth sores and trouble swallowing. Negative for congestion, postnasal drip, rhinorrhea, sinus pressure and sinus pain. Objective BP 119/80 Pulse 64 Temp 36.8 ?C (98.3 ?F) Resp 18 Wt 94.6 kg (208 lb 8.9 oz) SpO2 100% BMI 28.00 kg/m? Physical Exam Constitutional: General: He is not in acute distress. HENT: Right Ear: Tympanic membrane and ear canal normal. Left Ear: Tympanic membrane and ear canal normal. Nose: No congestion or rhinorrhea. Comments: Shallow arrieta ulcerations with mild surrounding erythema on the uvula, soft palate-tonsillar pillars. Mouth/Throat: Mouth: Mucous membranes are moist. Pharynx: No posterior oropharyngeal erythema. Eyes: Extraocular Movements: Extraocular movements intact. Conjunctiva/sclera: Conjunctivae normal. Pupils: Pupils are equal, round, and reactive to light. Cardiovascular: Rate and Rhythm: Normal rate and regular rhythm. Pulmonary: Effort: Pulmonary effort is normal. Breath sounds: Normal breath sounds. Musculoskeletal: Cervical back: Neck supple. No tenderness. Lymphadenopathy: Cervical: No cervical adenopathy. Neurological: Mental Status: He is alert. ASSESSMENT/PLAN: 1. Aphthous ulcer of mouth - ICD9: 528.2, ICD10: K12.0 - STREP A MOLECULAR (POC) - negative. Reviewed symptomatic treatment for idiopathic generally benign intermittent condition. His differential includes herpangina. - [id number] ORAL LIQUID ADS - can be compounded at the pharmacy. Spit out after gargling and avoid overuse. OTC benadryl and maalox can be used as an alternative. He may consider consult with ear nose and throat if symptoms are recurrent or bothersome enough. Jarad Teague MD [facility] 06-04-2024 History of Presen t illness Narrative [facility] Subjective Odin Alvarez is a 24 year old male. Patient presents with: Mouth Sores: Sore on uvula x2 days Patient presents with painful ulcers on his uvula for the last 3 days. Is difficult to swallow. He has had aphthous ulcers previously; has outbreaks a few times per year. He has a headache but no other symptoms. He has taken acetaminophen. Salt water gargles hurt and are difficult to get back far enough. Review of Systems Constitutional: Negative for chills and fever. HENT: Positive for mouth sores and trouble swallowing. Negative for congestion, postnasal drip, rhinorrhea, sinus pressure and sinus pain. Objective BP 119/80 Pulse 64 Temp 36.8 C (98.3 F) Resp 18 Wt 94.6 kg (208 lb 8.9 oz) SpO2 100% BMI 28.00 kg/m Physical Exam Constitutional: General: He is not in acute distress. HENT: Right Ear: Tympanic membrane and ear canal normal. Left Ear: Tympanic membrane and ear canal normal. Nose: No congestion or rhinorrhea. Comments: Shallow arrieta ulcerations with mild surrounding erythema on the uvula, soft palate-tonsillar pillars. Mouth/Throat: Mouth: Mucous membranes are moist. Pharynx: No posterior oropharyngeal erythema. Eyes: Extraocular Movements: Extraocular movements intact. Conjunctiva/sclera: Conjunctivae normal. Pupils: Pupils are equal, round, and reactive to light. Cardiovascular: Rate and Rhythm: Normal rate and regular rhythm. Pulmonary: Effort: Pulmonary effort is normal. Breath sounds: Normal breath sounds. Musculoskeletal: Cervical back: Neck supple. No tenderness. Lymphadenopathy: Cervical: No cervical adenopathy. Neurological: Mental Status: He is alert. ASSESSMENT/PLAN: 1. Aphthous ulcer of mouth - ICD9: 528.2, ICD10: K12.0 - STREP A MOLECULAR (POC) - negative. Reviewed symptomatic treatment for idiopathic generally benign intermittent condition. His differential includes herpangina. - [id number] ORAL LIQUID ADS - can be compounded at the pharmacy. Spit out after gargling and avoid overuse. OTC benadryl and maalox can be used as an alternative. He may consider consult with ear nose and throat if symptoms are recurrent or bothersome enough. Jarad Teague MD documented in this encounter [facility] 05-21-2024 Note HNO ID: [id number] Author: DARWIN CERVANTES PT Service: ? Author Type: Physical Therapist Type: Progress Notes Filed: 05/21/2024 10:15 Note Text: Episode Visit Count: 6 Therapist That Will Accept/Oversee The Plan Of Care: Darwin Cervantes PT Start of Care Date: 03/30/24 Onset Date: 11/29/23 Patient Identified by Name and Date of : Yes REHABILITATION AND SPORTS THERAPY PHYSICAL THERAPY DISCONTINUANCE OF CARE PLAN OF CARE UPDATE: Assessment: Odin Alvarez is discontinued from Physical Therapy services due to goal achievement and maximal benefit. and Patient/Clinician mutual decision to discontinue current plan of care.. Patient was seen for 6 visits from Start of Care Date: 03/30/24 to 05/21/2024 and treatment included: Therapeutic exercise, Self-long-term management, Patient/Family/Caregiver Education, and Body mechanics training. Updated: 04/30/24 and 05/21/24 Goals for Episode of Care: established 03/30/24 Independent in home exercises. - MET Patient will decrease pain to 0/10 at rest and with functional activities to allow patient to improve bending and lifting. - MET Patient will be able to tolerate bending and lifting for completion of work tasks without increased symptoms. - MET Patient will be able to correct postural deviations independently in order to allow for normal mechanics, to decrease current pain , and prevent future recurrence. - MET Patient will increase strength of posture/core muscles to WFL to allow for improved lifting tolerance. - MET Patient will increase flexibility of B hamstrings to -20 degrees to improve ability to maintain proper posture, improve mechanics, and decrease pain. - MET Patient Goals: eliminate pain and "get back to normal" - Mostly MET Classification Pain Mechanism Classification: Nociceptive Low Back Pain Classification: Movement Control SUBJECTIVE: Pt reports that the PT has "definitely made a difference." He reports improved tolerance for bending and lifting with improved flexibility. He denies any pain to start today. He reports compliance with HEP "at least twice a day." He reports improved tolerance for work tasks. He reports improved postural awareness and that he is working on his body mechanics at work. He reports that as long as he bends and lifts "correctly", these activities are pain-free. He rates his overall recovery at 85% but that his only limitations are at the gym and this is by choice. Pain: Pain Pain Level: 0 Description: (no pain to start today) Frequency: Intermittent Post Treatment Pain Post Treatment Pain Level: No Change PROMIS Scales 04/30/2024 03/30/2024 Higher is Better Phys Func - T Score 47 (within normal limits) 47 (within normal limits) Phys Func - Percentile 38 38 Self-Eff Symptom - T Score 48 (Average) 48 (Average) Self-Eff Symptom - Percentile 42 42 Proxy-reported 03/30/2024 Lower is Better Pain Interference - T Score 52 (within normal limits) Pain Interference - Percentile 42 T-scores: mean of general population = 50. 5 points is clinically meaningfully difference Percentiles provide an indication of how the patient's score ranks in relation to the general population. Higher percentile rankings indicate better function/quality of life. 50th percentile is the average of the general population and indicates half of respondents had a worse score. OBJECTIVE MEASURES WITH LEVEL OF FUNCTION: Posture / Alignment Posture: Comments Posture comment: Improved awareness and alignment Lumbar Spine AROM Lumbar Flexion: Normal Lumbar Extension: Normal Lumbar R Side-Bend: Normal Lumbar L Side-Bend: Normal Lumbar R Rotation: Normal Lumbar L Rotation: Normal Lumbar Spine AROM Comments: all pain-free LE Flexibility Flexibility: Hamstring Flexibility R Hamstring Flexibility: -20 L Hamstring Flexibility: -21 LE Strength Trunk Strength: Improving with additional rehab potential. Special Tests - Hip and Spine Hip and Spine Special Tests: SLR Test SLR Test: Right Negative, Left Negative TREATMENT: Carepath: Low Back Pain Therapeutic Exercise: 1: Retro TM 1.0mph x5 minutes (Pt provided an update and plan of care reviewed) 2: B HS stretch long sitting 3x30 seconds 3: standing lumbar extension 2x10 4: Entire HEP that was modified last session was reviewed. He was educated on which exercises were stretches and which ones were strengthening. He was educated on how and when to progress strengthening ones. 5: His independent workouts at the gym were discussed and recommendations made. He was educated on how to incorporated the cable column exercises done in PT into his gym workouts. 6: Therapist's contact information provided and he was encouraged to call with any future concerns. Skilled Intervention: Patient was educated in proper exercise technique and purpose for exercises. Skilled judgment was used in selection of appropriate interventions. (more content not included)... [facility] 05-21-2024 History of Presen t illness Narrative Images from the original note were not included. Episode Visit Count: 6 Therapist That Will Accept/Oversee The Plan Of Care: Darwin Cervantes PT Start of Care Date: 03/30/24 Onset Date: 11/29/23 Patient Identified by Name and Date of : Yes REHABILITATION AND SPORTS THERAPY PHYSICAL THERAPY DISCONTINUANCE OF CARE PLAN OF CARE UPDATE: Assessment: Odin Alvarez is discontinued from Physical Therapy services due to goal achievement and maximal benefit. and Patient/Clinician mutual decision to discontinue current plan of care.. Patient was seen for 6 visits from Start of Care Date: 03/30/24 to 05/21/2024 and treatment included: Therapeutic exercise, Self-long-term management, Patient/Family/Caregiver Education, and Body mechanics training. Updated: 04/30/24 and 05/21/24 Goals for Episode of Care: established 03/30/24 Independent in home exercises. - MET Patient will decrease pain to 0/10 at rest and with functional activities to allow patient to improve bending and lifting. - MET Patient will be able to tolerate bending and lifting for completion of work tasks without increased symptoms. - MET Patient will be able to correct postural deviations independently in order to allow for normal mechanics, to decrease current pain , and prevent future recurrence. - MET Patient will increase strength of posture/core muscles to WFL to allow for improved lifting tolerance. - MET Patient will increase flexibility of B hamstrings to -20 degrees to improve ability to maintain proper posture, improve mechanics, and decrease pain. - MET Patient Goals: eliminate pain and "get back to normal" - Mostly MET Classification Pain Mechanism Classification: Nociceptive Low Back Pain Classification: Movement Control SUBJECTIVE: Pt reports that the PT has "definitely made a difference." He reports improved tolerance for bending and lifting with improved flexibility. He denies any pain to start today. He reports compliance with HEP "at least twice a day." He reports improved tolerance for work tasks. He reports improved postural awareness and that he is working on his body mechanics at work. He reports that as long as he bends and lifts "correctly", these activities are pain-free. He rates his overall recovery at 85% but that his only limitations are at the gym and this is by choice. Pain: Pain Pain Level: 0 Description: (no pain to start today) Frequency: Intermittent Post Treatment Pain Post Treatment Pain Level: No Change PROMIS Scales 04/30/2024 03/30/2024 Higher is Better Phys Func - T Score 47 (within normal limits) 47 (within normal limits) Phys Func - Percentile 38 38 Self-Eff Symptom - T Score 48 (Average) 48 (Average) Self-Eff Symptom - Percentile 42 42 Proxy-reported 03/30/2024 Lower is Better Pain Interference - T Score 52 (within normal limits) Pain Interference - Percentile 42 T-scores: mean of general population = 50. 5 points is clinically meaningfully difference Percentiles provide an indication of how the patient's score ranks in relation to the general population. Higher percentile rankings indicate better function/quality of life. 50th percentile is the average of the general population and indicates half of respondents had a worse score. OBJECTIVE MEASURES WITH LEVEL OF FUNCTION: Posture / Alignment Posture: Comments Posture comment: Improved awareness and alignment Lumbar Spine AROM Lumbar Flexion: Normal Lumbar Extension: Normal Lumbar R Side-Bend: Normal Lumbar L Side-Bend: Normal Lumbar R Rotation: Normal Lumbar L Rotation: Normal Lumbar Spine AROM Comments: all pain-free LE Flexibility Flexibility: Hamstring Flexibility R Hamstring Flexibility: -20 L Hamstring Flexibility: -21 LE Strength Trunk Strength: Improving with additional rehab potential. Special Tests - Hip and Spine Hip and Spine Special Tests: SLR Test SLR Test: Right Negative, Left Negative TREATMENT: Carepath: Low Back Pain Therapeutic Exercise: 1: Retro TM 1.0mph x5 minutes (Pt provided an update and plan of care reviewed) 2: B HS stretch long sitting 3x30 seconds 3: standing lumbar extension 2x10 4: Entire HEP that was modified last session was reviewed. He was educated on which exercises were stretches and which ones were strengthening. He was educated on how and when to progress strengthening ones. 5: His independent workouts at the gym were discussed and recommendations made. He was educated on how to incorporated the cable column exercises done in PT into his gym workouts. 6: Therapist's contact information provided and he was encouraged to call with any future concerns. Skilled Intervention: Patient was educated in proper exercise technique and purpose for exercises. Skilled judgment was used in selection of appropriate interventions. Correct performance of therapeutic exercises was facilitated with verbal and visual cuing. Patient education as noted. Billing Therapeutic Exercise Treatment Minutes: 25 Skilled Treatment Time Minutes (timed and untimed codes): 25 Total Session Time (minutes): Session Start Time : 929 Session Stop Time : 954 Darwin Cervantes PT documented in this encounter [facility] 05-07-2024 Note HNO ID: [id number] Author: DARWIN CERVANTES PT Service: ? Author Type: Physical Therapist Type: Progress Notes Filed: 05/07/2024 16:26 Note Text: Episode Visit Count: 5 Therapist That Will Accept/Oversee The Plan Of Care: Darwin Cervantes PT Start of Care Date: 03/30/24 Onset Date: 11/29/23 Patient Identified by Name and Date of : Yes REHABILITATION AND SPORTS THERAPY PHYSICAL THERAPY TREATMENT NOTE ASSESSMENT: Odin Alvarez tolerated the session with fatigue, expected muscle soreness, and no issues. He demonstrated improvements in pain, postural awareness and exercise tolerance. The patient will continue to benefit from ongoing skilled physical therapy to progress toward set goals and for reassessment by supervising therapist. Classification Pain Mechanism Classification: Nociceptive Low Back Pain Classification: Movement Control PLAN FOR NEXT VISIT: Continue postural stretching and strengthening with progression to tolerance. Body mechanics training prn. Re-assess for plan of care update and possibly d/c. SUBJECTIVE: Pt reports that overall he is feeling approximately the same but still better overall. He denies any pain to start today, "just the tightness that is always there." He reports compliance with HEP 2x day most days. He denies any pain or problems following last session. Pain: Pain Pain Level: 0 Pain Location: Low Back/Lumbar Spine - Left, Low Back/Lumbar Spine - Right, Low Back/Lumbar Spine- Midline Description: (no pain to start today) Frequency: Intermittent Post Treatment Pain Post Treatment Pain Level: No Change Post Treatment Pain Location: Low Back/Lumbar Spine - Right, Low Back/Lumbar Spine - Left, Low Back/Lumbar Spine- Midline Post Treatment Symptoms: Pt reported fatigue but denied any increase in pain. OBJECTIVE MEASURES WITH LEVEL OF FUNCTION: TREATMENT: Carepath: Low Back Pain Therapeutic Exercise: 1: Retro TM 1.0mph x5 minutes (Pt provided an update on his condition) 2: standing at [employer] 2 plates stirring the pot x12 CW and x12 CCW facing both lateral directions 3: standing at ist [employer] with 2 plates 2x12 facing both lateral directions. 4: seated on ball at [employer] 2 plates plus 2 round pull downs with elbows extended 3x10 5: modified kneeling planks 3x30 seconds 6: quadruped bird dogs 2x10 with cues 7: bridging with LEs on ball 2x10 8: bridging with B alt knee ext 2x10 9: supine crunches in small range 2x10 10: reverse crunches 2x10 11: HEP reviewed and continuation encouraged to tolerance. Skilled Intervention: Patient was educated in proper exercise technique and purpose for exercises. Skilled judgment was used in selection of appropriate interventions. Correct performance of therapeutic exercises was facilitated with verbal, visual, and tactile cuing. Patient education as noted. Billing Therapeutic Exercise Treatment Minutes: 40 Skilled Treatment Time Minutes (timed and untimed codes): 40 Total Session Time (minutes): 40 Session Start Time : 1505 Session Stop Time : 1545 Darwin Cervantes PT [facility] 05-07-2024 History of Presen t illness Narrative Episode Visit Count: 5 Therapist That Will Accept/Oversee The Plan Of Care: Darwin Cervantes PT Start of Care Date: 03/30/24 Onset Date: 11/29/23 Patient Identified by Name and Date of : Yes REHABILITATION AND SPORTS THERAPY PHYSICAL THERAPY TREATMENT NOTE ASSESSMENT: Odin Alvarez tolerated the session with fatigue, expected muscle soreness, and no issues. He demonstrated improvements in pain, postural awareness and exercise tolerance. The patient will continue to benefit from ongoing skilled physical therapy to progress toward set goals and for reassessment by supervising therapist. Classification Pain Mechanism Classification: Nociceptive Low Back Pain Classification: Movement Control PLAN FOR NEXT VISIT: Continue postural stretching and strengthening with progression to tolerance. Body mechanics training prn. Re-assess for plan of care update and possibly d/c. SUBJECTIVE: Pt reports that overall he is feeling approximately the same but still better overall. He denies any pain to start today, "just the tightness that is always there." He reports compliance with HEP 2x day most days. He denies any pain or problems following last session. Pain: Pain Pain Level: 0 Pain Location: Low Back/Lumbar Spine - Left, Low Back/Lumbar Spine - Right, Low Back/Lumbar Spine- Midline Description: (no pain to start today) Frequency: Intermittent Post Treatment Pain Post Treatment Pain Level: No Change Post Treatment Pain Location: Low Back/Lumbar Spine - Right, Low Back/Lumbar Spine - Left, Low Back/Lumbar Spine- Midline Post Treatment Symptoms: Pt reported fatigue but denied any increase in pain. OBJECTIVE MEASURES WITH LEVEL OF FUNCTION: TREATMENT: Carepath: Low Back Pain Therapeutic Exercise: 1: Retro TM 1.0mph x5 minutes (Pt provided an update on his condition) 2: standing at [employer] 2 plates stirring the pot x12 CW and x12 CCW facing both lateral directions 3: standing at [employer] with 2 plates 2x12 facing both lateral directions. 4: seated on ball at [employer] 2 plates plus 2 round pull downs with elbows extended 3x10 5: modified kneeling planks 3x30 seconds 6: quadruped bird dogs 2x10 with cues 7: bridging with LEs on ball 2x10 8: bridging with B alt knee ext 2x10 9: supine crunches in small range 2x10 10: reverse crunches 2x10 11: HEP reviewed and continuation encouraged to tolerance. Skilled Intervention: Patient was educated in proper exercise technique and purpose for exercises. Skilled judgment was used in selection of appropriate interventions. Correct performance of therapeutic exercises was facilitated with verbal, visual, and tactile cuing. Patient education as noted. Billing Therapeutic Exercise Treatment Minutes: 40 Skilled Treatment Time Minutes (timed and untimed codes): 40 Total Session Time (minutes): 40 Session Start Time : 1505 Session Stop Time : 1545 Darwin Cervantes PT documented in this encounter [facility] 04-30-2024 Note HNO ID: [id number] Author: DARWIN ECRVANTES PT Service: ? Author Type: Physical Therapist Type: Progress Notes Filed: 04/30/2024 16:43 Note Text: Episode Visit Count: 4 Therapist That Will Accept/Oversee The Plan Of Care: Darwin Cervantes PT Start of Care Date: 03/30/24 Onset Date: 11/29/23 Patient Identified by Name and Date of : Yes REHABILITATION AND SPORTS THERAPY PHYSICAL THERAPY PROGRESS REPORT PLAN OF CARE UPDATE: Assessment: Odin Alvarez demonstrates moderate improvement in sitting, standing, bending, lifting, and working. The patient has progressed toward goals. Patient continues to present with impairments in ADL's, flexibility, independence in exercise, overall function, posture, strength, and symptom management that interfere with lifting, bending . Current prognosis is Excellent due to: current objective clinical presentation, good overall health status, positive past response to therapy, within-session changes, good support system/ coping skills. The patient will benefit from continued skilled therapy services to meet the updated goals for this plan of care as noted below. Updated: 04/30/24 Goals for Episode of Care: established 03/30/24 Independent in home exercises. - MET, will continue and progress to tolerance Patient will decrease pain to 0/10 at rest and with functional activities to allow patient to improve bending and lifting. - Partially MET, will continue Patient will be able to tolerate bending and lifting for completion of work tasks without increased symptoms. - Partially MET, will continue Patient will be able to correct postural deviations independently in order to allow for normal mechanics, to decrease current pain , and prevent future recurrence. - Partially MET, will continue Patient will increase strength of posture/core muscles to WFL to allow for improved lifting tolerance. - Partially MET, will continue Patient will increase flexibility of B hamstrings to -20 degrees to improve ability to maintain proper posture, improve mechanics, and decrease pain. - Partially MET, will continue Patient Goals: eliminate pain and "get back to normal" - Partially MET, will continue Time Frame for Goals and Treatment : 05/28/24 Patient Goals: eliminate pain and "get back to normal" Planned Interventions, Frequency, and Duration: 1x/week, 4 weeks Total Number of Visits Planned: 4 Patient to be seen for Therapeutic exercise (64096), Neuromuscular re-education (97924), Manual therapy (15259), Therapeutic activities (86271), Self-long-term management (69668), Patient/Family/Caregiver Education, Body Mechanics Training PLAN FOR NEXT VISIT: Continue postural stretching and strengthening with progression to tolerance. Body mechanics training prn Classification Pain Mechanism Classification: Nociceptive Low Back Pain Classification: Movement Control SUBJECTIVE: Pt reports that overall he is noticeably better. He reports that pain is less intense and less frequent. He reports that his pain is no longer debilitating. He reports compliance with HEP 2x day and that he is working on his posture and body mechanics. He reports that pain occurs intermittently with heavy lifting and working in sustained flexed position but overall his pain is much less with functional activities. He feels that he would benefit from a continuation of PT for the visits that are scheduled. Patient Goals: eliminate pain and "get back to normal" Functional Limitations: lifting, bending Prior Level of Function: Independent without limitations Intake Information: Prescription present Pain: Pain Pain Level: 0 Pain Location: Low Back/Lumbar Spine - Left, Low Back/Lumbar Spine - Right, Low Back/Lumbar Spine- Midline Description: (no pain to start today) Frequency: Intermittent Post Treatment Pain Post Treatment Pain Level: No Change Post Treatment Pain Location: Low Back/Lumbar Spine - Right, Low Back/Lumbar Spine - Left, Low Back/Lumbar Spine- Midline Post Treatment Symptoms: After session, he reported fatigue in his core from a good workout but he denied any increase in pain. PROMIS Scales 04/30/2024 03/30/2024 Higher is Better Phys Func - T Score 47 (within normal limits) 47 (within normal limits) Phys Func - Percentile 38 38 Self-Eff Symptom - T Score 48 (Average) 48 (Average) Self-Eff Symptom - Percentile 42 42 03/30/2024 Lower is Better Pain Interference - T Score 52 (within normal limits) Pain Interference - Percentile 42 T-scores: mean of general population = 50. 5 points is clinically meaningfully difference Percentiles provide an indication of how the patient's score ranks in relation to the general population. Higher percentile rankings indicate better function/quality of life. 50th percentile is the average of the general population and indicates half of respondents had a worse score. OBJECTIVE MEASURES WITH LEVEL OF FUNCTION: Post (more content not included)... [facility] 04-30-2024 History of Presen t illness Narrative Episode Visit Count: 4 Therapist That Will Accept/Oversee The Plan Of Care: Darwin Cervantes PT Start of Care Date: 03/30/24 Onset Date: 11/29/23 Patient Identified by Name and Date of : Yes REHABILITATION AND SPORTS THERAPY PHYSICAL THERAPY PROGRESS REPORT PLAN OF CARE UPDATE: Assessment: Odin Alvarez demonstrates moderate improvement in sitting, standing, bending, lifting, and working. The patient has progressed toward goals. Patient continues to present with impairments in ADL's, flexibility, independence in exercise, overall function, posture, strength, and symptom management that interfere with lifting, bending . Current prognosis is Excellent due to: current objective clinical presentation, good overall health status, positive past response to therapy, within-session changes, good support system/ coping skills. The patient will benefit from continued skilled therapy services to meet the updated goals for this plan of care as noted below. Updated: 04/30/24 Goals for Episode of Care: established 03/30/24 Independent in home exercises. - MET, will continue and progress to tolerance Patient will decrease pain to 0/10 at rest and with functional activities to allow patient to improve bending and lifting. - Partially MET, will continue Patient will be able to tolerate bending and lifting for completion of work tasks without increased symptoms. - Partially MET, will continue Patient will be able to correct postural deviations independently in order to allow for normal mechanics, to decrease current pain , and prevent future recurrence. - Partially MET, will continue Patient will increase strength of posture/core muscles to WFL to allow for improved lifting tolerance. - Partially MET, will continue Patient will increase flexibility of B hamstrings to -20 degrees to improve ability to maintain proper posture, improve mechanics, and decrease pain. - Partially MET, will continue Patient Goals: eliminate pain and "get back to normal" - Partially MET, will continue Time Frame for Goals and Treatment : 05/28/24 Patient Goals: eliminate pain and "get back to normal" Planned Interventions, Frequency, and Duration: 1x/week, 4 weeks Total Number of Visits Planned: 4 Patient to be seen for Therapeutic exercise (47594), Neuromuscular re-education (20789), Manual therapy (50614), Therapeutic activities (11565), Self-long-term management (93144), Patient/Family/Caregiver Education, Body Mechanics Training PLAN FOR NEXT VISIT: Continue postural stretching and strengthening with progression to tolerance. Body mechanics training prn Classification Pain Mechanism Classification: Nociceptive Low Back Pain Classification: Movement Control SUBJECTIVE: Pt reports that overall he is noticeably better. He reports that pain is less intense and less frequent. He reports that his pain is no longer debilitating. He reports compliance with HEP 2x day and that he is working on his posture and body mechanics. He reports that pain occurs intermittently with heavy lifting and working in sustained flexed position but overall his pain is much less with functional activities. He feels that he would benefit from a continuation of PT for the visits that are scheduled. Patient Goals: eliminate pain and "get back to normal" Functional Limitations: lifting, bending Prior Level of Function: Independent without limitations Intake Information: Prescription present Pain: Pain Pain Level: 0 Pain Location: Low Back/Lumbar Spine - Left, Low Back/Lumbar Spine - Right, Low Back/Lumbar Spine- Midline Description: (no pain to start today) Frequency: Intermittent Post Treatment Pain Post Treatment Pain Level: No Change Post Treatment Pain Location: Low Back/Lumbar Spine - Right, Low Back/Lumbar Spine - Left, Low Back/Lumbar Spine- Midline Post Treatment Symptoms: After session, he reported fatigue in his core from a good workout but he denied any increase in pain. PROMIS Scales 04/30/2024 03/30/2024 Higher is Better Phys Func - T Score 47 (within normal limits) 47 (within normal limits) Phys Func - Percentile 38 38 Self-Eff Symptom - T Score 48 (Average) 48 (Average) Self-Eff Symptom - Percentile 42 42 03/30/2024 Lower is Better Pain Interference - T Score 52 (within normal limits) Pain Interference - Percentile 42 T-scores: mean of general population = 50. 5 points is clinically meaningfully difference Percentiles provide an indication of how the patient's score ranks in relation to the general population. Higher percentile rankings indicate better function/quality of life. 50th percentile is the average of the general population and indicates half of respondents had a worse score. OBJECTIVE MEASURES WITH LEVEL OF FUNCTION: Posture / Alignment Posture: Comments Posture comment: Improved awareness and alignment Lumbar Spine AROM Lumbar Flexion: Normal Lumbar Extension: Normal Lumbar R Side-Bend: Normal Lumbar L Side-Bend: Normal Lumbar R Rotation: Normal Lumbar L Rotation: Normal Lumbar Spine AROM Comments: all pain-free LE Flexibility Flexibility: Hamstring Flexibility R Hamstring Flexibility: -24 L Hamstring Flexibility: -28 LE Strength Trunk Strength: Improving TREATMENT: Carepath: Low Back Pain Therapeutic Exercise: 1: Retro TM 1.0mph x5 minutes (Pt provided an update on his condition) 2: *LTR 2x10 B 3: *Supine DKTC 3x30 seconds 4: *supine curl ups in small range 2x10 5: * bugs 2x10 B 6: *quadruped bird dogs 2x10 with cues 7: *HS stretches reviewed 8: *bridging with B alt knee ext 2x10 9: HEP was revised per elan and new handouts provided. Pt was advised to discard previous handouts to avoid confusion. 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 Skilled Intervention: Patient was educated in proper exercise technique and purpose for exercises. Reviewed and educated patient on additions/changes for home exercise program as above (*). Skilled judgment was used in selection of appropriate interventions. Provided written instruction for home exercise program to facilitate proper performance and compliance. Correct performance of therapeutic exercises was facilitated with verbal, visual, and tactile cuing. Patient education as noted. Self-Fdc Management: 1: Postural correction, body mechanics and lifting technique reviewed and he was educated on how to apply these principles to everyday tasks and work. A model of person lifting was used to clarify education on lifting technique and body mechanics. Skilled Intervention: Reviewed patient specific diagnosis in relation to activities of daily living/home management. Instructed on proper lifting and carrying techniques with importance of core activation. Billing Therapeutic Exercise Treatment Minutes: 35 Self-Care/Home Management Treatment Minutes: 10 Skilled Treatment Time Minutes (timed and untimed codes): 45 Total Session Time (minutes): 45 Session Start Time : 1455 Session Stop Time : 1540 Darwin Cervantes PT Program_ID:[id number] Access Code: [email or web address] URL: [email or web address] Date: 04-30-2024 Prepared By: Darwin Cervantes Program Notes Exercises - Supine Double Knee to Chest - 3 x daily - 7 x weekly - sets - 3 reps - Curl Up with Arms Crossed - 3 x daily - 7 x weekly - 2 sets - 10 reps - Supine 90/90 Alternating Heel Touches with Posterior Pelvic Tilt - 3 x daily - 7 x weekly - 2 sets - 10 reps - Seated Hamstring Stretch - 1 x daily - 7 x weekly - 1 sets - 3 reps - Standing Hamstring Stretch with Step - 1 x daily - 7 x weekly - 1 sets - 3 reps - Supine Lower Trunk Rotation - 3 x daily - 7 x weekly - 2 sets - 10 reps - Supine Bridge with Knee Extension and Pelvic Floor Contraction - 3 x daily - 7 x weekly - 2 sets - 10 reps - Quadruped Pelvic Floor Contraction with Opposite Arm and Leg Lift - 3 x daily - 7 x weekly - 2 sets - 10 reps documented in this encounter [facility] 04-15-2024 Note HNO ID: [id number] Author: DARWIN CERVANTES PT Service: ? Author Type: Physical Therapist Type: Progress Notes Filed: 04/15/2024 11:25 Note Text: Episode Visit Count: 3 Therapist That Will Accept/Oversee The Plan Of Care: Darwin Cervantes PT Start of Care Date: 03/30/24 Onset Date: 11/29/23 Patient Identified by Name and Date of : Yes REHABILITATION AND SPORTS THERAPY PHYSICAL THERAPY TREATMENT NOTE ASSESSMENT: Odin Alvarez tolerated the session with fatigue and expected muscle soreness. He demonstrated improvements in core strengthening with sustained TA activation. The patient will continue to benefit from ongoing skilled physical therapy to progress toward set goals. PLAN FOR NEXT VISIT: Pect stretching. Assess response to quadruped exercises SUBJECTIVE: Pt reports that his back is feeling pretty good today. States that he had increased soreness after last visit. Pain: Pain Pain Level: 2 Pain Location: Low Back/Lumbar Spine - Left, Low Back/Lumbar Spine - Right, Low Back/Lumbar Spine- Midline Post Treatment Pain Post Treatment Pain Location: Low Back/Lumbar Spine - Right, Low Back/Lumbar Spine - Left, Low Back/Lumbar Spine- Midline OBJECTIVE MEASURES WITH LEVEL OF FUNCTION: Difficulty with proper spine alignment in quadruped. TREATMENT: Therapeutic Exercise: 1: Supine DKTC 3x30 seconds 2: LTR 2x10 B 3: *Bridges with alt LE knee extensions 2x10 B 4: supine curl ups in small range 3x10 5: PPT 2x10 6: PPT with BKFO 3x10 B 7: Reverse crunches with 65 cm physioball 3x10 8: bugs 1x10 B 9: Quadruped TA activation 2x10 10: Cat/Cow 2x10 11: *Scapular retractions 3x10 Skilled Intervention: Patient was educated in proper exercise technique and purpose for exercises. Reviewed and educated patient on additions/changes for home exercise program as above (*). Skilled judgment was used in selection of appropriate interventions. Correct performance of therapeutic exercises was facilitated with verbal and visual cuing. Billing Therapeutic Exercise Treatment Minutes: 38 Skilled Treatment Time Minutes (timed and untimed codes): 38 Total Session Time (minutes): 38 Session Start Time : 840 Session Stop Time : 918 VALERIA Barnes, GARRETT [facility] 04-15-2024 History of Presen t illness Narrative Episode Visit Count: 3 Therapist That Will Accept/Oversee The Plan Of Care: Darwin Cervantes PT Start of Care Date: 03/30/24 Onset Date: 11/29/23 Patient Identified by Name and Date of : Yes REHABILITATION AND SPORTS THERAPY PHYSICAL THERAPY TREATMENT NOTE ASSESSMENT: Odin Alvarez tolerated the session with fatigue and expected muscle soreness. He demonstrated improvements in core strengthening with sustained TA activation. The patient will continue to benefit from ongoing skilled physical therapy to progress toward set goals. PLAN FOR NEXT VISIT: Pect stretching. Assess response to quadruped exercises SUBJECTIVE: Pt reports that his back is feeling pretty good today. States that he had increased soreness after last visit. Pain: Pain Pain Level: 2 Pain Location: Low Back/Lumbar Spine - Left, Low Back/Lumbar Spine - Right, Low Back/Lumbar Spine- Midline Post Treatment Pain Post Treatment Pain Location: Low Back/Lumbar Spine - Right, Low Back/Lumbar Spine - Left, Low Back/Lumbar Spine- Midline OBJECTIVE MEASURES WITH LEVEL OF FUNCTION: Difficulty with proper spine alignment in quadruped. TREATMENT: Therapeutic Exercise: 1: Supine DKTC 3x30 seconds 2: LTR 2x10 B 3: *Bridges with alt LE knee extensions 2x10 B 4: supine curl ups in small range 3x10 5: PPT 2x10 6: PPT with BKFO 3x10 B 7: Reverse crunches with 65 cm physioball 3x10 8: bugs 1x10 B 9: Quadruped TA activation 2x10 10: Cat/Cow 2x10 11: *Scapular retractions 3x10 Skilled Intervention: Patient was educated in proper exercise technique and purpose for exercises. Reviewed and educated patient on additions/changes for home exercise program as above (*). Skilled judgment was used in selection of appropriate interventions. Correct performance of therapeutic exercises was facilitated with verbal and visual cuing. Billing Therapeutic Exercise Treatment Minutes: 38 Skilled Treatment Time Minutes (timed and untimed codes): 38 Total Session Time (minutes): 38 Session Start Time : 840 Session Stop Time : 918 VALERIA Barnes PT documented in this encounter [facility] 04-09-2024 History of Presen t illness Narrative Program_ID:[id number] Access Code: [email or web address] URL: [email or web address] Date: 04-09-2024 Prepared By: Darwin Cervantes Program Notes Exercises - Supine Double Knee to Chest - 3 x daily - 7 x weekly - sets - 3 reps - Supine Transversus Abdominis Bracing - Hands on Ground - 3 x daily - 7 x weekly - 2 sets - 10 reps - Curl Up with Arms Crossed - 3 x daily - 7 x weekly - 2 sets - 10 reps - Supine Bridge - 3 x daily - 7 x weekly - 2 sets - 10 reps - Supine March with Posterior Pelvic Tilt - 1 x daily - 7 x weekly - 2 sets - 10 reps - Supine 90/90 Alternating Heel Touches with Posterior Pelvic Tilt - 1 x daily - 7 x weekly - 2 sets - 10 reps - Seated Hamstring Stretch - 1 x daily - 7 x weekly - 1 sets - 3 reps - Standing Hamstring Stretch with Step - 1 x daily - 7 x weekly - 1 sets - 3 reps Episode Visit Count: 2 Therapist That Will Accept/Oversee The Plan Of Care: Darwin Cervantes PT Start of Care Date: 03/30/24 Onset Date: 11/29/23 Patient Identified by Name and Date of : Yes REHABILITATION AND SPORTS THERAPY PHYSICAL THERAPY TREATMENT NOTE ASSESSMENT: Odin Alvarez tolerated the session with fatigue, decreased symptoms, and expected muscle soreness. He demonstrated improvements in tolerance to core stabilization strengthening with decreased symptoms. The patient will continue to benefit from ongoing skilled physical therapy to progress toward set goals. PLAN FOR NEXT VISIT: Continue with core strengthening with flexion directional preference. Asses response to additonal strengthening exercises for HEP. SUBJECTIVE: Pt reports that earlier today his back was rough, but right now he is fine. Pt states that there is no change in his symptoms yet. HEP is going well 2x per day. Pain: Pain Pain Level: 3 (currentlty; earlier this morning -10/07) Pain Location: Low Back/Lumbar Spine- Midline, Low Back/Lumbar Spine - Right, Low Back/Lumbar Spine - Left Frequency: Continuous Post Treatment Pain Post Treatment Pain Level: 2 Post Treatment Pain Location: Low Back/Lumbar Spine - Right, Low Back/Lumbar Spine - Left, Low Back/Lumbar Spine- Midline OBJECTIVE MEASURES WITH LEVEL OF FUNCTION: Good form with PPT. TREATMENT: Therapeutic Exercise: 1: Pt was educated on the proper intensity with all therex and the importance of backing off or stopping any exercise that causes increased pain. He was advised that fatigue is desirable but pain is not. 2: Supine DKTC 3x30 seconds 3: Bridges 3x10 4: LTR 2x10 B 5: supine curl ups in small range 2x10 6: *PPT 2x10 7: *PPT with alt LE marching 2x10 B 8: bugs 2x10 B 9: Reverse crunches with 65 cm physioball 3x10 10: *Seated HS stretch 3x30 seconds B 11: *Standing HS stretch 3x30 seconds Skilled Intervention: Patient was educated in proper exercise technique and purpose for exercises. Reviewed and educated patient on additions/changes for home exercise program as above (*). Skilled judgment was used in selection of appropriate interventions. Provided written instruction for home exercise program to facilitate proper performance and compliance. Correct performance of therapeutic exercises was facilitated with verbal and visual cuing. Self-Fdc Management: 1: Education on elevating LE with prolonged standing in one spot. Skilled Intervention: Skilled judgment in the selection of proper modification for activity of daily living/home management based on clinical presentation, deficits, and needs. Reviewed patient specific diagnosis in relation to activities of daily living/home management. Activity progression based on professional judgement. Billing Therapeutic Exercise Treatment Minutes: 48 Self-Care/Home Management Treatment Minutes: 2 Skilled Treatment Time Minutes (timed and untimed codes): 50 Total Session Time (minutes): 50 Session Start Time : 1307 Session Stop Time : 1357 EmmaVALERIA Stratton PT, DPT. documented in this encounter [facility] 04-09-2024 Note HNO ID: [id number] Author: BENJAMIN MCKEON PT Service: ? Author Type: Physical Therapist Type: Progress Notes Filed: 04/09/2024 14:01 Note Text: Episode Visit Count: 2 Therapist That Will Accept/Oversee The Plan Of Care: Darwin Cervantes PT Start of Care Date: 03/30/24 Onset Date: 11/29/23 Patient Identified by Name and Date of : Yes REHABILITATION AND SPORTS THERAPY PHYSICAL THERAPY TREATMENT NOTE ASSESSMENT: Odin Alvarez tolerated the session with fatigue, decreased symptoms, and expected muscle soreness. He demonstrated improvements in tolerance to core stabilization strengthening with decreased symptoms. The patient will continue to benefit from ongoing skilled physical therapy to progress toward set goals. PLAN FOR NEXT VISIT: Continue with core strengthening with flexion directional preference. Asses response to additonal strengthening exercises for HEP. SUBJECTIVE: Pt reports that earlier today his back was rough, but right now he is fine. Pt states that there is no change in his symptoms yet. HEP is going well 2x per day. Pain: Pain Pain Level: 3 (currentlty; earlier this morning 6-10/07) Pain Location: Low Back/Lumbar Spine- Midline, Low Back/Lumbar Spine - Right, Low Back/Lumbar Spine - Left Frequency: Continuous Post Treatment Pain Post Treatment Pain Level: 2 Post Treatment Pain Location: Low Back/Lumbar Spine - Right, Low Back/Lumbar Spine - Left, Low Back/Lumbar Spine- Midline OBJECTIVE MEASURES WITH LEVEL OF FUNCTION: Good form with PPT. TREATMENT: Therapeutic Exercise: 1: Pt was educated on the proper intensity with all therex and the importance of backing off or stopping any exercise that causes increased pain. He was advised that fatigue is desirable but pain is not. 2: Supine DKTC 3x30 seconds 3: Bridges 3x10 4: LTR 2x10 B 5: supine curl ups in small range 2x10 6: *PPT 2x10 7: *PPT with alt LE marching 2x10 B 8: bugs 2x10 B 9: Reverse crunches with 65 cm physioball 3x10 10: *Seated HS stretch 3x30 seconds B 11: *Standing HS stretch 3x30 seconds Skilled Intervention: Patient was educated in proper exercise technique and purpose for exercises. Reviewed and educated patient on additions/changes for home exercise program as above (*). Skilled judgment was used in selection of appropriate interventions. Provided written instruction for home exercise program to facilitate proper performance and compliance. Correct performance of therapeutic exercises was facilitated with verbal and visual cuing. Self-Fdc Management: 1: Education on elevating LE with prolonged standing in one spot. Skilled Intervention: Skilled judgment in the selection of proper modification for activity of daily living/home management based on clinical presentation, deficits, and needs. Reviewed patient specific diagnosis in relation to activities of daily living/home management. Activity progression based on professional judgement. Billing Therapeutic Exercise Treatment Minutes: 48 Self-Care/Home Management Treatment Minutes: 2 Skilled Treatment Time Minutes (timed and untimed codes): 50 Total Session Time (minutes): 50 Session Start Time : 1307 Session Stop Time : 1357 VALERIA Barnes, PT, DPT. [facility] 03-30-2024 History of Presen t illness Narrative Program_ID:[id number] Access Code: [email or web address] URL: [email or web address] Date: 03-30-2024 Prepared By: Darwin Cervantes Program Notes Exercises - Supine Double Knee to Chest - 3 x daily - 7 x weekly - sets - 3 reps - Supine Transversus Abdominis Bracing - Hands on Ground - 3 x daily - 7 x weekly - 2 sets - 10 reps - Curl Up with Arms Crossed - 3 x daily - 7 x weekly - 2 sets - 10 reps - Supine Bridge - 3 x daily - 7 x weekly - 2 sets - 10 reps Episode Visit Count: 1 Therapist That Will Accept/Oversee The Plan Of Care: Darwin Cervantes PT Start of Care Date: 03/30/24 Onset Date: 11/29/23 Patient Identified by Name and Date of : Yes REHABILITATION AND SPORTS THERAPY PHYSICAL THERAPY EVALUATION PLAN OF CARE: Assessment: Odin Alvarez presents with chief complaint of low back pain that interferes with lifting, bending. The patient presents with impairments in ADL's, flexibility, independence in exercise, overall function, posture, strength, and symptom management. PROMIS (Patient-Reported Outcomes Measurement Information System) scores were reviewed and identified as within normal limits. Prognosis for therapy is Excellent due to: current objective clinical presentation, good overall health status, acuteness of condition, within-session changes, good support system/ coping skills The patient will benefit from skilled therapy services to meet the goals established for this plan of care as noted below. Classification Pain Mechanism Classification: Nociceptive Low Back Pain Classification: Movement Control Goals for Episode of Care: established 03/30/24 Independent in home exercises. Patient will decrease pain to 0/10 at rest and with functional activities to allow patient to improve bending and lifting. Patient will be able to tolerate bending and lifting for completion of work tasks without increased symptoms. Patient will be able to correct postural deviations independently in order to allow for normal mechanics, to decrease current pain , and prevent future recurrence. Patient will increase strength of posture/core muscles to WFL to allow for improved lifting tolerance. Patient will increase flexibility of B hamstrings to -20 degrees to improve ability to maintain proper posture, improve mechanics, and decrease pain. Patient Goals: eliminate pain and "get back to normal" Time Frame for Goals and Treatment : 05/11/24 Planned Interventions, Frequency, and Duration: Current Frequency: 1x/week Duration: 6 weeks Total Number of Visits Planned: 6 Planned Treatment Interventions: Therapeutic exercise (22673), Self-long-term management (50443), Neuromuscular re-education (59394), Manual therapy (48228), Therapeutic activities (05698), Patient/Family/Caregiver Education, Body Mechanics Training, General Conditioning PLAN FOR NEXT VISIT: Review, correct and progress HEP to tolerance. Continue with postural correction and body mechanics training, especially for work tasks. Continue with postural stretching and strengthening with focus on either neutral spine or flexion directional preference. Avoid end range extension. Patient demonstrates good understanding of plan of care and treatment. The above goals and plan of care were discussed and agreed upon by patient/family. SUBJECTIVE: Pt reports constant pain in center of his low back and out into both sides of his low back. He reports that pain is constant but varies in intensity. He denies any mechanism of injury and he denies any LE symptoms currently. 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 Cancer Clinical Reasoning: No identified risk factors. Infection Clinical Reasoning: No identified risk factors. Cauda Equina Syndrome Clinical Reasoning: No identified risk factors. Red Flags - Cervical Cancer Clinical Reasoning: No identified risk factors. Infection Clinical Reasoning: No identified risk factors. Spine History Symptoms Location at Onset: Back Symptoms Since Onset: Worsening Pain is Worse Always: Bending, Lying (lifting, prone) Pain is Better Sometimes: Lying (supine and/or sidelying) Previous Episodes: No Sleeping Position: Supine, Side lying right, Side lying left Sleep Affected by Pain: Not affected by pain Pain: Pain Pain Level: (3-4/10 currently, 7-8/10 at worst with repetitive lifting.) Pain Location: Low Back/Lumbar Spine- Midline, Low Back/Lumbar Spine - Right, Low Back/Lumbar Spine - Left Description: Aching, Tightness, Pressure, Sharp, Stabbing (aching, tightness and pressure currently but at worst is sharp and stabbing) Frequency: Continuous (constant but varies in intensity and aggravated by bending and lifting.) Post Treatment Pain Post Treatment Pain Level: Better Post Treatment Symptoms: After today's session, pt reported feeling better with less low back pain. PROMIS Scales 03/30/2024 Higher is Better Phys Func - Score 47 (within normal limits) Phys Func - Percentile 38 Self-Eff Symptom - Score 48 (Average) Self-Eff Symptom - Percentile 42 T-scores: mean of general population = 50. 5 points is clinically meaningfully difference Percentiles provide an indication of how the patient's score ranks in relation to the general population. Higher percentile rankings indicate better function/quality of life. 50th percentile is the average of the general population and indicates half of respondents had a worse score. OBJECTIVE MEASURES WITH LEVEL OF FUNCTION: Posture / Alignment Posture: Forward head, Increased thoracic kyphosis, Rounded shoulders Reflexes - Lower Extremity R Patellar: Normal L Patellar: Normal Spine Observations Spine presents with: increased lumbar lordosis R Lumbar Spine Palpation Tenderness: No tenderness noted L Lumbar Spine Palpation Tenderness: No tenderness noted Sensation - Lumbar Sensation: Grossly Intact Lumbar Spine AROM Lumbar Flexion: Normal Lumbar Extension: Normal, Increased pain Lumbar R Side-Bend: Normal Lumbar L Side-Bend: Normal Lumbar R Rotation: Normal Lumbar L Rotation: Normal LE Flexibility Flexibility: Hamstring Flexibility R Hamstring Flexibility: -37 L Hamstring Flexibility: -37 LE Strength Trunk Strength: Pt's postural deficits, job demands, x-ray findings of instability and his reported functional difficulties indicate that he will benefit from increased core and postural strength. R LE Strength: no asymmetrical myotomal weakness detected in B LEs. L LE Strength: no asymmetrical myotomal weakness detected in B LEs. Special Tests - Hip and Spine Hip and Spine Special Tests: SLR Test SLR Test: Right Negative, Left Negative Gait Gait Observation: Normal Vitals BP: 147/85 Pulse: 88 Education: Education Learning Preferences: Demonstration, Explanation, Performance, Printed Materials Barriers: None Learning/educational needs: Home exercise program, Plan of Care, Posture, Body Mechanics Education Provided: Yes, see treatment interventions for education provided Education Provided To: Patient Education Mode/Type: Demonstration, Explanation/Discussion, Literature/Printed Materials, Performance Response to Education/Teach Back: States/Identifies, Return Demonstration, Requires Review/Additional Education TREATMENT: [facility]: Low Back Pain PT Treatment Interventions: Therapeutic Exercise, Self-Fdc Management Evaluation Therapeutic Exercise: 1: Pt was educated on the proper intensity with all therex and the importance of backing off or stopping any exercise that causes increased pain. He was advised that fatigue is desirable but pain is not. 2: *supine DKTC 3x30 seconds 3: *supine isometric abdominal bracing via shoulder extension 2x10 4: *supine curl ups in small range 2x10 5: *bridging 2x10 Skilled Intervention: Patient was educated in proper exercise technique and purpose for exercises. Reviewed and educated patient on additions/changes for home exercise program as above (*). Skilled judgment was used in selection of appropriate interventions. Provided written instruction for home exercise program to facilitate proper performance and compliance. Correct performance of therapeutic exercises was facilitated with verbal, visual, and tactile cuing. Patient education as noted. Self-Fdc Management: 1: Pt's questions about his x-ray findings were answered and x-rays were shown on screen. A model of the spine was used to clarify education provided. He was educated extensively on the anatomy of his lumbar spine, likely etiology of symptoms, his directional preference, the functional implications of his directional preference, the rationale for recommended PT plan of care and postural correction. He was educated on the importance of postural correction and maintaining a neutral spine. He was educated on how to apply these principles to his daily routine and especially at work. Skilled Intervention: Skilled judgment in the selection of proper modification for activity of daily living/home management based on clinical presentation, deficits, and needs. Provided written instruction for activities of daily living techniques to facilitate proper performance and compliance. Reviewed patient specific diagnosis in relation to activities of daily living/home management. Billing * Evaluation Low Complexity: 1 Unit Therapeutic Exercise Treatment Minutes: 15 Self-Care/Home Management Treatment Minutes: 10 Skilled Treatment Time Minutes (timed and untimed codes): 45 Total Session Time (minutes): 45 Session Start Time : 1315 Session Stop Time : 1400 Darwin Cervantes PT documented in this encounter [facility] 03-30-2024 Note HNO ID: [id number] Author: DARWIN CERVANTES PT Service: ? Author Type: Physical Therapist Type: Progress Notes Filed: 03/30/2024 15:05 Note Text: Episode Visit Count: 1 Therapist That Will Accept/Oversee The Plan Of Care: Darwin Cervantes PT Start of Care Date: 03/30/24 Onset Date: 11/29/23 Patient Identified by Name and Date of : Yes [facility] PHYSICAL THERAPY EVALUATION PLAN OF CARE: Assessment: Odin Alvarez presents with chief complaint of low back pain that interferes with lifting, bending. The patient presents with impairments in ADL's, flexibility, independence in exercise, overall function, posture, strength, and symptom management. PROMIS? (Patient-Reported Outcomes Measurement Information System) scores were reviewed and identified as within normal limits. Prognosis for therapy is Excellent due to: current objective clinical presentation, good overall health status, acuteness of condition, within-session changes, good support system/ coping skills The patient will benefit from skilled therapy services to meet the goals established for this plan of care as noted below. Classification Pain Mechanism Classification: Nociceptive Low Back Pain Classification: Movement Control Goals for Episode of Care: established 03/30/24 Independent in home exercises. Patient will decrease pain to 0/10 at rest and with functional activities to allow patient to improve bending and lifting. Patient will be able to tolerate bending and lifting for completion of work tasks without increased symptoms. Patient will be able to correct postural deviations independently in order to allow for normal mechanics, to decrease current pain , and prevent future recurrence. Patient will increase strength of posture/core muscles to WFL to allow for improved lifting tolerance. Patient will increase flexibility of B hamstrings to -20 degrees to improve ability to maintain proper posture, improve mechanics, and decrease pain. Patient Goals: eliminate pain and "get back to normal" Time Frame for Goals and Treatment : 05/11/24 Planned Interventions, Frequency, and Duration: Current Frequency: 1x/week Duration: 6 weeks Total Number of Visits Planned: 6 Planned Treatment Interventions: Therapeutic exercise (46881), Self-long-term management (06151), Neuromuscular re-education (52203), Manual therapy (88679), Therapeutic activities (30221), Patient/Family/Caregiver Education, Body Mechanics Training, General Conditioning PLAN FOR NEXT VISIT: Review, correct and progress HEP to tolerance. Continue with postural correction and body mechanics training, especially for work tasks. Continue with postural stretching and strengthening with focus on either neutral spine or flexion directional preference. Avoid end range extension. Patient demonstrates good understanding of plan of care and treatment. The above goals and plan of care were discussed and agreed upon by patient/family. SUBJECTIVE: Pt reports constant pain in center of his low back and out into both sides of his low back. He reports that pain is constant but varies in intensity. He denies any mechanism of injury and he denies any LE symptoms currently. 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 Cancer Clinical Reasoning: No identified risk factors. Infection Clinical Reasoning: No identified risk factors. Cauda Equina Syndrome Clinical Reasoning: No identified risk factors. Red Flags - Cervical Cancer Clinical Reasoning: No identified risk factors. Infection Clinical Reasoning: No identified risk factors. Spine History Symptoms Location at Onset: Back Symptoms Since Onset: Worsening Pain is Worse Always: Bending, Lying (lifting, prone) Pain is Better Sometimes: Lying (supine and/or sidelying) Previous Episodes: No Sleeping Position: Supine, Side lying right, Side lying left Sleep Affected by Pain: Not affected by pain Pain: Pain Pain Level: (3-4/10 currently, 7-8/10 at worst with repetitive lifting.) Pain Location: Low Back/Lumbar Spine- Midline, Low Back/Lumbar Spine - Right, Low Back/Lumbar Spine - Left Description: Aching, Tightness, Pressure, Sharp, Stabbing (aching, tightness and pressure currently but at worst is sharp and stabbing) Frequency: Continuous (constant but varies in intensity and aggravated by bending and lifting.) Post Treatment Pain Post Treatment Pain L (more content not included)... [facility] 03-04-2024 Telephone encounter Note Odin, I am not surprised. 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 It's a common cause of low back pain that is not something that can be fixed. It is important to remain flexibility and core strength. Use good body mechanics with lifting. Maybe episodic NAIDS/ Tylenol such as ibuprofen, acetaminophen, and naproxen. I will place a consult for physical therapy. [facility] 03-04-2024 Miscellaneous Notes Odin, I am not surprised. 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 It's a common cause of low back pain that is not something that can be fixed. It is important to remain flexibility and core strength. Use good body mechanics with lifting. Maybe episodic NAIDS/ Tylenol such as ibuprofen, acetaminophen, and naproxen. I will place a consult for physical therapy. documented in this encounter [facility] 02-27-2024 History of Presen t illness Narrative Radiology Service Progress Note PATIENT NAME: Odin Alvarez DATE OF SERVICE: February 27, 2024 TIME: 1:45 PM PATIENT IDENTITY VERIFICATION COMPLETED USING TWO (2) IDENTIFIERS: Name and Date of confirmed by patient verbally. FALL SCREENING: Has the patient had 2 falls in the last year or 1 fall with injury or currently using an Ambulatory Assistive Device (Walker, Cane, Wheelchair, Crutches, etc.)? No PATIENT GENDER DATA: Male PATIENT RELEVANT IMPLANT DATA REVIEWED: Not Applicable PATIENT PRESENTS WITH AN IMPLANTABLE OR ATTACHED ACID TANK LINER: No RADIOLOGY DEPARTMENT: General X-ray: Exam(s) Completed: Spine X-Ray(s): Lumbar AP / LAT / L5-S1 PERIPHERAL IV DATA: Not applicable SIGNED BY: RT Emerald(Skinny) February 27, 2024 1:45 PM documented in this encounter [facility] 02-27-2024 Note HNO ID: [id number] Author: DARREN ARRIAGA RT(Skinny) Service: ? Author Type: Technologist Type: Progress Notes Filed: 02/27/2024 13:50 Note Text: Radiology Service Progress Note PATIENT NAME: Odin Alvarez DATE OF SERVICE: February 27, 2024 TIME: 1:45 PM PATIENT IDENTITY VERIFICATION COMPLETED USING TWO (2) IDENTIFIERS: Name and Date of confirmed by patient verbally. FALL SCREENING: Has the patient had 2 falls in the last year or 1 fall with injury or currently using an Ambulatory Assistive Device (Walker, Cane, Wheelchair, Crutches, etc.)? No PATIENT GENDER DATA: Male PATIENT RELEVANT IMPLANT DATA REVIEWED: Not Applicable PATIENT PRESENTS WITH AN IMPLANTABLE OR ATTACHED ACID TANK LINER: No RADIOLOGY DEPARTMENT: General X-ray: Exam(s) Completed: Spine X-Ray(s): Lumbar AP / LAT / L5-S1 PERIPHERAL IV DATA: Not applicable SIGNED BY: RT Emerald(R) February 27, 2024 1:45 PM [facility] 02-27-2024 Instructions Jose Schmidt MD - 02/27/2024 1:28 PM EST Low Back Pain-Exercises What exercise can I do to reduce low back pain? Pelvic tilt Lie on your back with your knees bent. In this relaxed position, the small of your back will not be touching the floor. Tighten your abdominal muscles so that the small of your back presses flat against the floor. Hold for five seconds then relax. Repeat three times and gradually build to 10 repetitions. [id number] Lie on your back with both legs straight. Bring one knee up to your chest, pressing the small of your back into the floor (pelvic tilt). Hold for five seconds and repeat five times. Repeat exercise on other leg. Back stretch Lie on your stomach. Use your arms to push your upper body off the floor. Hold for five seconds. Let your back relax and sag. Repeat 10 times. Discontinue any exercise that produces or increases pain in the leg. Copyright 2015-8779 [facility]. All rights reserved. This information is provided by the [facility] and is not intended to replace the medical advice of your doctor or health care provider. Please consult your health care provider for advice about a specific medical condition. For additional written health information, please contact the Health Information Center at the [facility] or toll-free extension [phone] or visit [email or web address] This document was last reviewed on: 2004 index#[id number] documented in this encounter [facility] 02-27-2024 Note HNO ID: [id number] Author: JOSE SCHMIDT MD Service: ? Author Type: Physician Type: Progress Notes Filed: 02/27/2024 13:29 Note Text: Patient presents with: Back Pain HPI: Patient presents today for office visit for lower back pain. Constant pain in lower back over the past two months. Refers to a constant dull ache. No injury. Two weeks ago pain was pretty significant to where he was barely able to stand up straight. Trouble lifting things. Using icy hot and Advil. Some relief. No generalized weakness. No numbness of tingling. In a strip along his lower back. No radicular pain, numbness or weakness. Used advil and icy hot helps some. Did stretches. No urinary issues. MEDICATIONS: No current outpatient medications on file. No current facility-administered medications for this visit. ALLERGIES: ALLERGIES No Known Allergies PAST MEDICAL HISTORY Diagnosis Date PM - PAST MEDICAL HISTORY OF 10/2006 normal color vision Wrist fracture both wrists PAST SURGICAL HISTORY Procedure Laterality Date CIRCUMCISION,CLAMP, FAMILY HISTORY Problem Relation Age of Onset other (high cholesterol) Mother Cancer Paternal Grandfather lymphoma Hypertension Paternal Grandfather Thyroid Maternal Grandmother Cancer Maternal Grandmother Hypertension Maternal Grandmother Heart Maternal Grandfather Cancer Maternal Grandfather colon other (high cholesterol) Maternal Grandfather Social History Tobacco Use Smoking status: Never Smokeless tobacco: Never Substance Use Topics Alcohol use: No Drug use: No Reviewed current medications, allergies, past medical history, surgical history, family history and social history today. REVIEW OF SYSTEMS All other reviewed and negative other than HPI. VITALS: BP 127/80 Pulse 81 Ht 183.8 cm (6' 0.36") Wt 100.8 kg (222 lb 3.6 oz) BMI 29.84 kg/m? Last 4 Encounter Wt Readings: Date: Wt: 10/20/2023 99 kg (218 lb 4.1 oz) 08/20/2023 100.5 kg (221 lb 9 oz) 07/17/2023 100.4 kg (221 lb 5.5 oz) 01/19/2023 94.4 kg (208 lb 3.2 oz) PHYSICAL EXAMINATION: General appearance: Well appearing, alert, in no acute distress, well-hydrated, well nourished. BACK: Normal curvature of spine. No spine tenderness. Straight leg test negative. Deep tendon reflexes 2+/4 at patellas. Normal lower extremity strength. ASSESSMENT/PLAN: 1. Acute midline low back pain without sciatica - ICD9: 724.2, ICD10: M54.50 - Discussed risks and benefits of new medication with the patient. Advised them to call if any side effects or questions. Red flags for re-assessment reviewed with patient in detail. Call if symptoms worsen at all or if not better in one to two weeks Reviewed diagnosis and treatment options in detail. Questions were answered. Patient expressed understanding of treatment plan. - XR LUMBAR GENERAL 3V AP/LAT/L5-S1 - PREDNISONE 20 MG TABLET Jose Schmidt MD [facility] 02-27-2024 History of Presen t illness Narrative Patient presents with: Back Pain HPI: Patient presents today for office visit for lower back pain. Constant pain in lower back over the past two months. Refers to a constant dull ache. No injury. Two weeks ago pain was pretty significant to where he was barely able to stand up straight. Trouble lifting things. Using icy hot and Advil. Some relief. No generalized weakness. No numbness of tingling. In a strip along his lower back. No radicular pain, numbness or weakness. Used advil and icy hot helps some. Did stretches. No urinary issues. MEDICATIONS: No current outpatient medications on file. No current facility-administered medications for this visit. ALLERGIES: ALLERGIES No Known Allergies PAST MEDICAL HISTORY Diagnosis Date PMH - PAST MEDICAL HISTORY OF 10/2006 normal color vision Wrist fracture both wrists PAST SURGICAL HISTORY Procedure Laterality Date CIRCUMCISION,CLAMP, FAMILY HISTORY Problem Relation Age of Onset other (high cholesterol) Mother Cancer Paternal Grandfather lymphoma Hypertension Paternal Grandfather Thyroid Maternal Grandmother Cancer Maternal Grandmother Hypertension Maternal Grandmother Heart Maternal Grandfather Cancer Maternal Grandfather colon other (high cholesterol) Maternal Grandfather Social History Tobacco Use Smoking status: Never Smokeless tobacco: Never Substance Use Topics Alcohol use: No Drug use: No Reviewed current medications, allergies, past medical history, surgical history, family history and social history today. REVIEW OF SYSTEMS All other reviewed and negative other than HPI. VITALS: BP 127/80 Pulse 81 Ht 183.8 cm (6' 0.36") Wt 100.8 kg (222 lb 3.6 oz) BMI 29.84 kg/m Last 4 Encounter Wt Readings: Date: Wt: 10/20/2023 99 kg (218 lb 4.1 oz) 08/20/2023 100.5 kg (221 lb 9 oz) 07/17/2023 100.4 kg (221 lb 5.5 oz) 01/19/2023 94.4 kg (208 lb 3.2 oz) PHYSICAL EXAMINATION: General appearance: Well appearing, alert, in no acute distress, well-hydrated, well nourished. BACK: Normal curvature of spine. No spine tenderness. Straight leg test negative. Deep tendon reflexes 2+/4 at patellas. Normal lower extremity strength. ASSESSMENT/PLAN: 1. Acute midline low back pain without sciatica - ICD9: 724.2, ICD10: M54.50 - Discussed risks and benefits of new medication with the patient. Advised them to call if any side effects or questions. Red flags for re-assessment reviewed with patient in detail. Call if symptoms worsen at all or if not better in one to two weeks Reviewed diagnosis and treatment options in detail. Questions were answered. Patient expressed understanding of treatment plan. - XR LUMBAR GENERAL 3V AP/LAT/L5-S1 - PREDNISONE 20 MG TABLET Jose Schmidt MD documented in this encounter [facility] 10-20-2023 Note HNO ID: [id number] Author: KHADIJAH MORENO APRN.FILM SOUND ENGINEER Service: ? Author Type: Nurse Practitioner Type: Progress Notes Filed: 10/20/2023 11:19 Note Text: Subjective HPI Nontoxic-appearing male presents urgent care chief complaint sore on back of head. Has been there for quite some time. Has recently increased in pain and size. Presents today for evaluation. No trauma. No drainage. Overall feels well. Denies any fever body aches chills productive cough chest pain shortness of breath pleuritic pain hemoptysis nausea vomiting abdominal pain change in bowel or bladder habits. Past medical history prescription medication use and allergies reviewed. .Patient presents with: Mass: Bump/sore on back of head x 1 month PAST MEDICAL HISTORY Diagnosis Date PMH - PAST MEDICAL HISTORY OF 10/2006 normal color vision Wrist fracture both wrists PAST SURGICAL HISTORY Procedure Laterality Date CIRCUMCISION,CLAMP, ALLERGIES Patient has no known allergies. MEDICATIONS doxycycline (VIBRA-TABS) 100 mg tablet Take 1 tablet by mouth two times a day for 5 days. FAMILY HISTORY Problem Relation Age of Onset other (high cholesterol) Mother Cancer Paternal Grandfather lymphoma Hypertension Paternal Grandfather Thyroid Maternal Grandmother Cancer Maternal Grandmother Hypertension Maternal Grandmother Heart Maternal Grandfather Cancer Maternal Grandfather colon other (high cholesterol) Maternal Grandfather Social History Tobacco Use Smoking status: Never Smokeless tobacco: Never Substance Use Topics Alcohol use: No Drug use: No BP 110/80 Pulse 64 Temp 36 ?C (96.8 ?F) Resp 18 Wt 99 kg (218 lb 4.1 oz) SpO2 98% BMI 29.31 kg/m? Review of Systems Constitutional: Negative for chills, fever and malaise/fatigue. HENT: Negative for congestion, ear discharge, ear pain, sinus pain and sore throat. Eyes: Negative for blurred vision, pain, discharge and redness. Respiratory: Negative for cough, hemoptysis, sputum production, shortness of breath, wheezing and stridor. Cardiovascular: Negative for chest pain. Gastrointestinal: Negative for abdominal pain, diarrhea, nausea and vomiting. Musculoskeletal: Negative for myalgias. Skin: Negative for itching and rash. Neurological: Negative for dizziness and headaches. Objective Physical Exam Constitutional: General: He is not in acute distress. Appearance: He is not diaphoretic. HENT: Head: Normocephalic. Jaw: No trismus, tenderness, swelling or pain on movement. Mouth/Throat: Mouth: Mucous membranes are moist. Pharynx: Oropharynx is clear. Uvula midline. No pharyngeal swelling, oropharyngeal exudate, posterior oropharyngeal erythema or uvula swelling. Eyes: Conjunctiva/sclera: Conjunctivae normal. Pupils: Pupils are equal, round, and reactive to light. Cardiovascular: Rate and Rhythm: Normal rate and regular rhythm. Heart sounds: Normal heart sounds. Pulmonary: Effort: Pulmonary effort is normal. No tachypnea, accessory muscle usage or respiratory distress. Breath sounds: Normal breath sounds. No stridor. No wheezing, rhonchi or rales. Abdominal: General: There is no distension. Palpations: Abdomen is soft. Tenderness: There is no abdominal tenderness. There is no guarding or rebound. Musculoskeletal: Cervical back: Normal range of motion and neck supple. No edema, erythema, rigidity or tenderness. No pain with movement. Normal range of motion. Lymphadenopathy: Cervical: No cervical adenopathy. Skin: General: Skin is warm and dry. Comments: A 5 mm x 5 mm flesh-colored elevated lesion noted highlighted area. Surrounding erythema noted. No drainage. No fluctuance. Neurological: Mental Status: He is alert and oriented to person, place, and time. ASSESSMENT/PLAN: 1. Cellulitis of skin - ICD9: 682.9, ICD10: L03.90 Diagnosis cellulitis of skin. Placed on doxycycline. Referred to [facility] dermatology. Patient was educated on supportive therapies. Patient will follow up with primary care provider as needed. Patient was instructed to immediately proceed to emergency room for any new, worsening, or symptoms lasting longer than anticipated. The patient's clinical presentation is otherwise unremarkable at this time. Based on exam and clinical finding, the patient is stable for discharge. Plan of care was discussed with patient. Patient verbalizes understanding and agrees to plan of care. This note was generated using [employer] software. It may contain errors in wording, punctuation, or spelling. Khadijah Moreno APRN.[facility] 10-20-2023 History of Presen t illness Narrative Images from the original note were not included. Subjective HPI Nontoxic-appearing male presents urgent care chief complaint sore on back of head. Has been there for quite some time. Has recently increased in pain and size. Presents today for evaluation. No trauma. No drainage. Overall feels well. Denies any fever body aches chills productive cough chest pain shortness of breath pleuritic pain hemoptysis nausea vomiting abdominal pain change in bowel or bladder habits. Past medical history prescription medication use and allergies reviewed. .Patient presents with: Mass: Bump/sore on back of head x 1 month PAST MEDICAL HISTORY Diagnosis Date PMH - PAST MEDICAL HISTORY OF 10/2006 normal color vision Wrist fracture both wrists PAST SURGICAL HISTORY Procedure Laterality Date CIRCUMCISION,CLAMP, ALLERGIES Patient has no known allergies. MEDICATIONS doxycycline (VIBRA-TABS) 100 mg tablet Take 1 tablet by mouth two times a day for 5 days. FAMILY HISTORY Problem Relation Age of Onset other (high cholesterol) Mother Cancer Paternal Grandfather lymphoma Hypertension Paternal Grandfather Thyroid Maternal Grandmother Cancer Maternal Grandmother Hypertension Maternal Grandmother Heart Maternal Grandfather Cancer Maternal Grandfather colon other (high cholesterol) Maternal Grandfather Social History Tobacco Use Smoking status: Never Smokeless tobacco: Never Substance Use Topics Alcohol use: No Drug use: No BP 110/80 Pulse 64 Temp 36 C (96.8 F) Resp 18 Wt 99 kg (218 lb 4.1 oz) SpO2 98% BMI 29.31 kg/m Review of Systems Constitutional: Negative for chills, fever and malaise/fatigue. HENT: Negative for congestion, ear discharge, ear pain, sinus pain and sore throat. Eyes: Negative for blurred vision, pain, discharge and redness. Respiratory: Negative for cough, hemoptysis, sputum production, shortness of breath, wheezing and stridor. Cardiovascular: Negative for chest pain. Gastrointestinal: Negative for abdominal pain, diarrhea, nausea and vomiting. Musculoskeletal: Negative for myalgias. Skin: Negative for itching and rash. Neurological: Negative for dizziness and headaches. Objective Physical Exam Constitutional: General: He is not in acute distress. Appearance: He is not diaphoretic. HENT: Head: Normocephalic. Jaw: No trismus, tenderness, swelling or pain on movement. Mouth/Throat: Mouth: Mucous membranes are moist. Pharynx: Oropharynx is clear. Uvula midline. No pharyngeal swelling, oropharyngeal exudate, posterior oropharyngeal erythema or uvula swelling. Eyes: Conjunctiva/sclera: Conjunctivae normal. Pupils: Pupils are equal, round, and reactive to light. Cardiovascular: Rate and Rhythm: Normal rate and regular rhythm. Heart sounds: Normal heart sounds. Pulmonary: Effort: Pulmonary effort is normal. No tachypnea, accessory muscle usage or respiratory distress. Breath sounds: Normal breath sounds. No stridor. No wheezing, rhonchi or rales. Abdominal: General: There is no distension. Palpations: Abdomen is soft. Tenderness: There is no abdominal tenderness. There is no guarding or rebound. Musculoskeletal: Cervical back: Normal range of motion and neck supple. No edema, erythema, rigidity or tenderness. No pain with movement. Normal range of motion. Lymphadenopathy: Cervical: No cervical adenopathy. Skin: General: Skin is warm and dry. Comments: A 5 mm x 5 mm flesh-colored elevated lesion noted highlighted area. Surrounding erythema noted. No drainage. No fluctuance. Neurological: Mental Status: He is alert and oriented to person, place, and time. ASSESSMENT/PLAN: 1. Cellulitis of skin - ICD9: 682.9, ICD10: L03.90 Diagnosis cellulitis of skin. Placed on doxycycline. Referred to [facility] dermatology. Patient was educated on supportive therapies. Patient will follow up with primary care provider as needed. Patient was instructed to immediately proceed to emergency room for any new, worsening, or symptoms lasting longer than anticipated. The patient's clinical presentation is otherwise unremarkable at this time. Based on exam and clinical finding, the patient is stable for discharge. Plan of care was discussed with patient. Patient verbalizes understanding and agrees to plan of care. This note was generated using [employer] software. It may contain errors in wording, punctuation, or spelling. Khadijah Moreno APRN.ANNA MARIE documented in this encounter [facility] 08-20-2023 Note HNO ID: [id number] Author: DELMER WILKERSON APRN.ANNA MARIE Service: ? Author Type: Nurse Practitioner Type: Progress Notes Filed: 08/20/2023 13:31 Note Text: This note was created using [employer]. Subjective Odin Alvarez is a 23 year old male. 23 year old male with no significant PMH presents for throat complaints. Acute onset 5 days ago +"ulcer" on tonsil +pain Denies tobaco usage Attempted thoat numbing medicine without relief Has had history of same in past. Denies fever or chills Denies malaise or fatigue Denies URI sx Denies cough The history is provided by the patient. No speech and language tutor was used. Mouth/Lip Problem This is a recurrent problem. The current episode started in the past 7 days. The problem occurs constantly. The problem has been unchanged. Associated symptoms include a sore throat. Pertinent negatives include no abdominal pain, anorexia, arthralgias, change in bowel habit, chest pain, chills, congestion, coughing, diaphoresis, fatigue, fever, headaches, joint swelling, myalgias, nausea, neck pain, numbness, rash, swollen glands, urinary symptoms, vertigo, visual change, vomiting or weakness. Nothing aggravates the symptoms. Treatments tried: throat spray. The treatment provided no relief. PAST MEDICAL HISTORY Diagnosis Date PMH - PAST MEDICAL HISTORY OF 10/2006 normal color vision Wrist fracture both wrists PAST SURGICAL HISTORY Procedure Laterality Date CIRCUMCISION,CLAMP, ALLERGIES Patient has no known allergies. MEDICATIONS predniSONE (DELTASONE) 10 mg tablet Take 4 tabs daily for 3 days, then 2 tabs daily for 3 days, then 1 tab daily for 3 days with food. valACYclovir (VALTREX) 1 gram tablet Take 1 tablet by mouth three times a day for 7 days. FAMILY HISTORY Problem Relation Age of Onset other (high cholesterol) Mother Cancer Paternal Grandfather lymphoma Hypertension Paternal Grandfather Thyroid Maternal Grandmother Cancer Maternal Grandmother Hypertension Maternal Grandmother Heart Maternal Grandfather Cancer Maternal Grandfather colon other (high cholesterol) Maternal Grandfather Social History Tobacco Use Smoking status: Never Smokeless tobacco: Never Substance Use Topics Alcohol use: No Drug use: No Review of Systems Constitutional: Negative for chills, diaphoresis, fatigue and fever. HENT: Positive for sore throat. Negative for congestion. Eyes: Negative for pain, discharge, redness and itching. Respiratory: Negative for apnea, cough, choking and chest tightness. Cardiovascular: Negative for chest pain. Gastrointestinal: Negative for abdominal pain, anorexia, change in bowel habit, nausea and vomiting. Musculoskeletal: Negative for arthralgias, joint swelling, myalgias and neck pain. Skin: Negative for color change, pallor and rash. Allergic/Immunologic: Negative for environmental allergies, food allergies and immunocompromised state. Neurological: Negative for vertigo, weakness, numbness and headaches. Hematological: Negative for adenopathy. Does not bruise/bleed easily. Psychiatric/Behavioral: Negative for agitation and behavioral problems. Objective BP 128/72 Pulse 83 Temp 36.2 ?C (97.2 ?F) Resp 16 Wt 100.5 kg (221 lb 9 oz) SpO2 98% BMI 29.75 kg/m? Physical Exam Vitals and nursing note reviewed. Constitutional: General: He is not in acute distress. Appearance: Normal appearance. He is not ill-appearing, toxic-appearing or diaphoretic. HENT: Head: Normocephalic and atraumatic. Right Ear: External ear normal. Left Ear: External ear normal. Nose: Nose normal. No congestion or rhinorrhea. Mouth/Throat: Mouth: Mucous membranes are moist. Pharynx: Oropharynx is clear. No oropharyngeal exudate or posterior oropharyngeal erythema. Comments: Right tonsillar pillar with superficial arrieta ulceration. Uvula midline Handling secretions. No muffled voice Eyes: General: Right eye: No discharge. Left eye: No discharge. Extraocular Movements: Extraocular movements intact. Conjunctiva/sclera: Conjunctivae normal. Pupils: Pupils are equal, round, and reactive to light. Cardiovascular: Rate and Rhythm: Normal rate and regular rhythm. Pulses: Normal pulses. Heart sounds: Normal heart sounds. No murmur heard. No friction rub. No gallop. Pulmonary: Effort: Pulmonary effort is normal. No respiratory distress. Breath sounds: Normal breath sounds. No stridor. No wheezing, rhonchi or rales. Chest: Chest wall: No tenderness. Abdominal: General: Abdomen is flat. There is no distension. Palpations: Abdomen is soft. There is no mass. Tenderness: There is no abdominal tenderness. There is no guarding or rebound. Hernia: No hernia is present. Musculoskeletal: General: No swelling, tenderness, deformity or signs of injury. Normal range of motion. Cervical back: Normal range of motion and neck supple. No rigidity or tenderness. Rig (more content not included)... [facility] 08-20-2023 History of Presen t illness Narrative This note was created using [employer]. Subjective Odin Alvarez is a 23 year old male. 23 year old male with no significant PMH presents for throat complaints. Acute onset 5 days ago +"ulcer" on tonsil +pain Denies tobaco usage Attempted thoat numbing medicine without relief Has had history of same in past. Denies fever or chills Denies malaise or fatigue Denies URI sx Denies cough The history is provided by the patient. No speech and language tutor was used. Mouth/Lip Problem This is a recurrent problem. The current episode started in the past 7 days. The problem occurs constantly. The problem has been unchanged. Associated symptoms include a sore throat. Pertinent negatives include no abdominal pain, anorexia, arthralgias, change in bowel habit, chest pain, chills, congestion, coughing, diaphoresis, fatigue, fever, headaches, joint swelling, myalgias, nausea, neck pain, numbness, rash, swollen glands, urinary symptoms, vertigo, visual change, vomiting or weakness. Nothing aggravates the symptoms. Treatments tried: throat spray. The treatment provided no relief. PAST MEDICAL HISTORY Diagnosis Date PM - PAST MEDICAL HISTORY OF 10/2006 normal color vision Wrist fracture both wrists PAST SURGICAL HISTORY Procedure Laterality Date CIRCUMCISION,CLAMP, ALLERGIES Patient has no known allergies. MEDICATIONS predniSONE (DELTASONE) 10 mg tablet Take 4 tabs daily for 3 days, then 2 tabs daily for 3 days, then 1 tab daily for 3 days with food. valACYclovir (VALTREX) 1 gram tablet Take 1 tablet by mouth three times a day for 7 days. FAMILY HISTORY Problem Relation Age of Onset other (high cholesterol) Mother Cancer Paternal Grandfather lymphoma Hypertension Paternal Grandfather Thyroid Maternal Grandmother Cancer Maternal Grandmother Hypertension Maternal Grandmother Heart Maternal Grandfather Cancer Maternal Grandfather colon other (high cholesterol) Maternal Grandfather Social History Tobacco Use Smoking status: Never Smokeless tobacco: Never Substance Use Topics Alcohol use: No Drug use: No Review of Systems Constitutional: Negative for chills, diaphoresis, fatigue and fever. HENT: Positive for sore throat. Negative for congestion. Eyes: Negative for pain, discharge, redness and itching. Respiratory: Negative for apnea, cough, choking and chest tightness. Cardiovascular: Negative for chest pain. Gastrointestinal: Negative for abdominal pain, anorexia, change in bowel habit, nausea and vomiting. Musculoskeletal: Negative for arthralgias, joint swelling, myalgias and neck pain. Skin: Negative for color change, pallor and rash. Allergic/Immunologic: Negative for environmental allergies, food allergies and immunocompromised state. Neurological: Negative for vertigo, weakness, numbness and headaches. Hematological: Negative for adenopathy. Does not bruise/bleed easily. Psychiatric/Behavioral: Negative for agitation and behavioral problems. Objective BP 128/72 Pulse 83 Temp 36.2 C (97.2 F) Resp 16 Wt 100.5 kg (221 lb 9 oz) SpO2 98% BMI 29.75 kg/m Physical Exam Vitals and nursing note reviewed. Constitutional: General: He is not in acute distress. Appearance: Normal appearance. He is not ill-appearing, toxic-appearing or diaphoretic. HENT: Head: Normocephalic and atraumatic. Right Ear: External ear normal. Left Ear: External ear normal. Nose: Nose normal. No congestion or rhinorrhea. Mouth/Throat: Mouth: Mucous membranes are moist. Pharynx: Oropharynx is clear. No oropharyngeal exudate or posterior oropharyngeal erythema. Comments: Right tonsillar pillar with superficial arrieta ulceration. Uvula midline Handling secretions. No muffled voice Eyes: General: Right eye: No discharge. Left eye: No discharge. Extraocular Movements: Extraocular movements intact. Conjunctiva/sclera: Conjunctivae normal. Pupils: Pupils are equal, round, and reactive to light. Cardiovascular: Rate and Rhythm: Normal rate and regular rhythm. Pulses: Normal pulses. Heart sounds: Normal heart sounds. No murmur heard. No friction rub. No gallop. Pulmonary: Effort: Pulmonary effort is normal. No respiratory distress. Breath sounds: Normal breath sounds. No stridor. No wheezing, rhonchi or rales. Chest: Chest wall: No tenderness. Abdominal: General: Abdomen is flat. There is no distension. Palpations: Abdomen is soft. There is no mass. Tenderness: There is no abdominal tenderness. There is no guarding or rebound. Hernia: No hernia is present. Musculoskeletal: General: No swelling, tenderness, deformity or signs of injury. Normal range of motion. Cervical back: Normal range of motion and neck supple. No rigidity or tenderness. Right lower leg: No edema. Left lower leg: No edema. Lymphadenopathy: Cervical: No cervical adenopathy. Skin: General: Skin is warm and dry. Capillary Refill: Capillary refill takes less than 2 seconds. Coloration: Skin is not jaundiced or pale. Findings: No bruising, lesion or rash. Neurological: General: No focal deficit present. Mental Status: He is alert and oriented to person, place, and time. Cranial Nerves: No cranial nerve deficit. Sensory: No sensory deficit. Motor: No weakness. Coordination: Coordination normal. Gait: Gait normal. Deep Tendon Reflexes: Reflexes normal. Psychiatric: Mood and Affect: Mood normal. Behavior: Behavior normal. Thought Content: Thought content normal. Assessment and Plan ASSESSMENT/PLAN: 1. Ulcer of tonsil - ICD9: 474.8, ICD10: J35.8 Right tonsil with ulceration noted No red flags History of same in past RX Prednisone RX Valtrex Follow up with PCP for continued sx Delmer Wilkerson APRN.[employer] documented in this encounter [facility] 07-17-2023 Note HNO ID: [id number] Author: JOSE SCHMIDT MD Service: ? Author Type: Physician Type: Progress Notes Filed: 07/17/2023 12:02 Note Text: Patient presents with: Follow Up HPI: Patient presents today for office visit for follow up. MEDICATIONS: No current outpatient medications on file. No current facility-administered medications for this visit. ALLERGIES: ALLERGIES No Known Allergies PAST MEDICAL HISTORY Diagnosis Date PMH - PAST MEDICAL HISTORY OF 10/2006 normal color vision Wrist fracture both wrists PAST SURGICAL HISTORY Procedure Laterality Date CIRCUMCISION,CLAMP, FAMILY HISTORY Problem Relation Age of Onset other (high cholesterol) Mother Cancer Paternal Grandfather lymphoma Hypertension Paternal Grandfather Thyroid Maternal Grandmother Cancer Maternal Grandmother Hypertension Maternal Grandmother Heart Maternal Grandfather Cancer Maternal Grandfather colon other (high cholesterol) Maternal Grandfather Social History Tobacco Use Smoking status: Never Smokeless tobacco: Never Substance Use Topics Alcohol use: No Drug use: No Reviewed current medications, allergies, past medical history, surgical history, family history and social history today. REVIEW OF SYSTEMS HEENT: Negative for frequent or significant headaches, No changes in hearing or vision, no nose bleeds or other nasal problems RESPIRATORY: Negative for cough, hemoptysis, wheezing, COPD, dyspnea or shortness of breath CARDIOVASCULAR: Negative for chest pain, leg swelling, hypertension, CHF or palpitations GI: No nausea, vomiting, or diarrhea : No history of dysuria, frequency or incontinence SKIN: Negative for lesions, rash, and itching All other reviewed and negative other than HPI. HEALTH MAINTENANCE: Reviewed health maintenance issues today and recommended the following in detail. Behavioral Health Screening Never done VITALS: BP 123/80 (BP Site: Right Arm, BP Position: Sitting, BP Cuff Size: Large Adult) Pulse 69 Temp 36.7 ?C (98.1 ?F) (Temporal) Ht 183.8 cm (6' 0.36") Wt 100.4 kg (221 lb 5.5 oz) BMI 29.72 kg/m? Vision is 20/20 Last 4 Encounter Wt Readings: Date: Wt: 07/17/2023 100.4 kg (221 lb 5.5 oz) 01/19/2023 94.4 kg (208 lb 3.2 oz) 01/07/2022 86.4 kg (190 lb 6.4 oz) 12/11/2020 91.5 kg (201 lb 11.2 oz) (92%, Z= 1.44)* PHYSICAL EXAMINATION: General appearance: Well appearing, alert, in no acute distress, well-hydrated, well nourished. Skin: Skin color, texture, turgor normal, no suspicious rashes or lesions Head: Normocephalic, no masses, lesions, tenderness or abnormalities Eyes: Anicteric sclera. Pupils are equally round and reactive to light. Extraocular movements are intact. Normal visual martínez. Ears: External ears normal, canals clear.normal whisper test Nose/Sinuses: Nares normal, septum midline, mucosa normal, no drainage or sinus tenderness Oropharynx: Lips, mucosa, and tongue normal, teeth and gums normal, oropharynx normal Neck: Supple, no adenopathy; thyroid symmetric, normal size, no bruits Back: Normal exam Lungs: Lungs clear to auscultation. No wheezing, rhonchi, rales Heart: RRR without murmur, gallop, or rubs. No ectopy Abdomen: Normal abdominal exam, Abdomen soft, non-tender. Bowel sounds normal. No masses, organomegaly Extremities: No deformities, edema, skin discoloration, clubbing or cyanosis. Good capillary refill. Musculoskeletal: No joint swelling, deformity, or tenderness Peripheral pulses: Normal Neuro: Negative. ASSESSMENT/PLAN: 1. Well adult exam - ICD9: V70.0, ICD10: Z00.00 -forms completed. - BASIC METABOLIC PANEL - HIV 1/2 COMBO WITH REFLEX TO DIFFERENTIATION - URINALYSIS, WITH MICROSCOPIC Jose Schmidt MD [facility] 07-17-2023 History of Presen t illness Narrative Patient presents with: Follow Up HPI: Patient presents today for office visit for follow up. MEDICATIONS: No current outpatient medications on file. No current facility-administered medications for this visit. ALLERGIES: ALLERGIES No Known Allergies PAST MEDICAL HISTORY Diagnosis Date PMH - PAST MEDICAL HISTORY OF 10/2006 normal color vision Wrist fracture both wrists PAST SURGICAL HISTORY Procedure Laterality Date CIRCUMCISION,CLAMP, FAMILY HISTORY Problem Relation Age of Onset other (high cholesterol) Mother Cancer Paternal Grandfather lymphoma Hypertension Paternal Grandfather Thyroid Maternal Grandmother Cancer Maternal Grandmother Hypertension Maternal Grandmother Heart Maternal Grandfather Cancer Maternal Grandfather colon other (high cholesterol) Maternal Grandfather Social History Tobacco Use Smoking status: Never Smokeless tobacco: Never Substance Use Topics Alcohol use: No Drug use: No Reviewed current medications, allergies, past medical history, surgical history, family history and social history today. REVIEW OF SYSTEMS HEENT: Negative for frequent or significant headaches, No changes in hearing or vision, no nose bleeds or other nasal problems RESPIRATORY: Negative for cough, hemoptysis, wheezing, COPD, dyspnea or shortness of breath CARDIOVASCULAR: Negative for chest pain, leg swelling, hypertension, CHF or palpitations GI: No nausea, vomiting, or diarrhea : No history of dysuria, frequency or incontinence SKIN: Negative for lesions, rash, and itching All other reviewed and negative other than HPI. HEALTH MAINTENANCE: Reviewed health maintenance issues today and recommended the following in detail. Behavioral Health Screening Never done VITALS: BP 123/80 (BP Site: Right Arm, BP Position: Sitting, BP Cuff Size: Large Adult) Pulse 69 Temp 36.7 C (98.1 F) (Temporal) Ht 183.8 cm (6' 0.36") Wt 100.4 kg (221 lb 5.5 oz) BMI 29.72 kg/m Vision is 20/20 Last 4 Encounter Wt Readings: Date: Wt: 07/17/2023 100.4 kg (221 lb 5.5 oz) 01/19/2023 94.4 kg (208 lb 3.2 oz) 01/07/2022 86.4 kg (190 lb 6.4 oz) 12/11/2020 91.5 kg (201 lb 11.2 oz) (92%, Z= 1.44)* PHYSICAL EXAMINATION: General appearance: Well appearing, alert, in no acute distress, well-hydrated, well nourished. Skin: Skin color, texture, turgor normal, no suspicious rashes or lesions Head: Normocephalic, no masses, lesions, tenderness or abnormalities Eyes: Anicteric sclera. Pupils are equally round and reactive to light. Extraocular movements are intact. Normal visual martínez. Ears: External ears normal, canals clear.normal whisper test Nose/Sinuses: Nares normal, septum midline, mucosa normal, no drainage or sinus tenderness Oropharynx: Lips, mucosa, and tongue normal, teeth and gums normal, oropharynx normal Neck: Supple, no adenopathy; thyroid symmetric, normal size, no bruits Back: Normal exam Lungs: Lungs clear to auscultation. No wheezing, rhonchi, rales Heart: RRR without murmur, gallop, or rubs. No ectopy Abdomen: Normal abdominal exam, Abdomen soft, non-tender. Bowel sounds normal. No masses, organomegaly Extremities: No deformities, edema, skin discoloration, clubbing or cyanosis. Good capillary refill. Musculoskeletal: No joint swelling, deformity, or tenderness Peripheral pulses: Normal Neuro: Negative. ASSESSMENT/PLAN: 1. Well adult exam - ICD9: V70.0, ICD10: Z00.00 -forms completed. - BASIC METABOLIC PANEL - HIV 1/2 COMBO WITH REFLEX TO DIFFERENTIATION - URINALYSIS, WITH MICROSCOPIC Jose Schmidt MD documented in this encounter [facility] 01-23-2023 History of Presen t illness Narrative Patient presents with: Consult: Switching primary care HPI: Patient presents today for office visit for follow up/getting established. He is normally a [facility] patient. Doing well. Going to [facility] [employer]. MEDICATIONS: Current Outpatient Medications Medication Sig bexovqxvfaBIQPY-agayju-kbndcfaib (BMX 1:1:1) 1:1:1 liqd Take 10 mL by mouth three times daily as needed (sore throat). No current facility-administered medications for this visit. ALLERGIES: ALLERGIES No Known Allergies PAST MEDICAL HISTORY Diagnosis Date PMH - PAST MEDICAL HISTORY OF 10/2006 normal color vision Wrist fracture both wrists PAST SURGICAL HISTORY Procedure Laterality Date CIRCUMCISION,CLAMP, FAMILY HISTORY Problem Relation Age of Onset other (high cholesterol) Mother Cancer Paternal Grandfather lymphoma Hypertension Paternal Grandfather Thyroid Maternal Grandmother Cancer Maternal Grandmother Hypertension Maternal Grandmother Heart Maternal Grandfather Cancer Maternal Grandfather colon other (high cholesterol) Maternal Grandfather Social History Tobacco Use Smoking status: Never Smokeless tobacco: Never Substance Use Topics Alcohol use: No Drug use: No Reviewed current medications, allergies, past medical history, surgical history, family history and social history today. REVIEW OF SYSTEMS PAIN ASSESSMENT: Negative for pain, history of chronic pain, or current treatment for a chronic pain condition. HEENT: Negative for frequent or significant headaches, No changes in hearing or vision, no nose bleeds or other nasal problems NECK: Negative for lumps, goiter, pain and significant neck swelling RESPIRATORY: Negative for cough, hemoptysis, wheezing, COPD, dyspnea or shortness of breath CARDIOVASCULAR: no swelling or palpitations. Rarely can feel a "pop" down his sternum if stretching. GI: No nausea, vomiting, or diarrhea : No history of dysuria, frequency or incontinence SKIN: Negative for lesions, rash, and itching All other reviewed and negative other than HPI. HEALTH MAINTENANCE: Reviewed health maintenance issues today and recommended the following in detail. Covid-19 Vaccine(1) Never done HPV Vaccine(1 - Male 2-dose series) Never done Meningococcal B Vaccine: Consider Based On Risk(1 of 2 - Patient Seeks Protection) Never done Hepatitis C Screening Never done HIV Screening Never done Depression Assessment Never done Influenza Vaccine(1) due on 11/29/2022 VITALS: BP 128/78 (BP Site: Left Arm, BP Position: Sitting, BP Cuff Size: Large Adult) Pulse 73 Resp 16 Ht 185.4 cm (6' 1") SpO2 95% BMI 27.47 kg/m Last 4 Encounter Wt Readings: Date: Wt: 01/19/2023 94.4 kg (208 lb 3.2 oz) 01/07/2022 86.4 kg (190 lb 6.4 oz) 12/11/2020 91.5 kg (201 lb 11.2 oz) (92 %, Z= 1.44)* 09/19/2020 95.4 kg (210 lb 6.4 oz) (95 %, Z= 1.66)* PHYSICAL EXAMINATION: General appearance: Well appearing, alert, in no acute distress, well-hydrated, well nourished. Skin: Skin color, texture, turgor normal, no suspicious rashes or lesions Head: Normocephalic, no masses, lesions, tenderness or abnormalities Eyes: Anicteric sclera. Pupils are equally round and reactive to light. Extraocular movements are intact. Ears: External ears normal, canals clear Nose/Sinuses: Nares normal, septum midline, mucosa normal, no drainage or sinus tenderness Oropharynx: Lips, mucosa, and tongue normal, teeth and gums normal, oropharynx normal Neck: Supple, no adenopathy; thyroid symmetric, normal size, no bruits Lungs: Lungs clear to auscultation. No wheezing, rhonchi, rales Heart: RRR without murmur, gallop, or rubs. No ectopy Abdomen: Normal abdominal exam, Abdomen soft, non-tender. Bowel sounds normal. No masses, organomegaly Extremities: No deformities, edema, skin discoloration, clubbing or cyanosis. Good capillary refill. Musculoskeletal: No joint swelling, deformity, or tenderness Peripheral pulses: Normal Neuro: Negative. ASSESSMENT/PLAN: 1. Well adult health check - ICD9: V70.0, ICD10: Z00.00 - Counseled on healthy diet and regular exercise - Follow up for annual exam in one year Jose Schmidt MD documented in this encounter [facility] 01-19-2023 History of Presen t illness Narrative Subjective HPI Nontoxic male presents urgent care chief complaint decreased hearing bilateral. Duration of symptoms 2 days. Associated symptoms muffled hearing that comes and goes both ears right ear is more prominent than left. Has used some eardrops this is helped some. No ear trauma loss of hearing. Risk factors does wear headphones. Denies any fever body aches chills productive cough chest pain shortness of breath pleuritic pain hemoptysis nausea vomiting abdominal pain change in bowel or bladder habits. Past medical history prescription medication use and allergies reviewed. .Patient presents with: Ear Problem: Right ear pressure and slight pain x 2 days PAST MEDICAL HISTORY Diagnosis Date PMH - PAST MEDICAL HISTORY OF 10/2006 normal color vision Wrist fracture both wrists PAST SURGICAL HISTORY Procedure Laterality Date CIRCUMCISION,CLAMP, ALLERGIES Patient has no known allergies. MEDICATIONS hvcevaehmxAWVFT-omexki-cmsddnhef (BMX 1:1:1) 1:1:1 liqd Take 10 mL by mouth three times daily as needed (sore throat). FAMILY HISTORY Problem Relation Age of Onset other (high cholesterol) Mother Cancer Paternal Grandfather lymphoma Hypertension Paternal Grandfather Thyroid Maternal Grandmother Cancer Maternal Grandmother Hypertension Maternal Grandmother Heart Maternal Grandfather Cancer Maternal Grandfather colon other (high cholesterol) Maternal Grandfather Social History Tobacco Use Smoking status: Never Smokeless tobacco: Never Substance Use Topics Alcohol use: No Drug use: No BP 122/80 Pulse 74 Temp 36.4 C (97.6 F) (Tympanic) Resp 16 Wt 94.4 kg (208 lb 3.2 oz) SpO2 98% BMI 27.47 kg/m Review of Systems Constitutional: Negative for chills, fever and malaise/fatigue. HENT: Negative for congestion, ear discharge, ear pain, hearing loss, sinus pain, sore throat and tinnitus. Eyes: Negative for blurred vision, pain, discharge and redness. Respiratory: Negative for cough, hemoptysis, sputum production, shortness of breath, wheezing and stridor. Cardiovascular: Negative for chest pain. Gastrointestinal: Negative for abdominal pain, diarrhea, nausea and vomiting. Musculoskeletal: Negative for myalgias. Skin: Negative for itching and rash. Neurological: Negative for dizziness and headaches. Objective Physical Exam Constitutional: General: He is not in acute distress. Appearance: He is not toxic-appearing. HENT: Head: Normocephalic. Right Ear: Tympanic membrane, ear canal and external ear normal. There is impacted cerumen. Left Ear: Tympanic membrane, ear canal and external ear normal. There is impacted cerumen. Ears: Comments: Bilateral cerumen impaction noted. Post irrigation TM pearly burkett intact bilaterally. Nose: Nose normal. Eyes: Pupils: Pupils are equal, round, and reactive to light. Cardiovascular: Rate and Rhythm: Normal rate. Pulmonary: Effort: Pulmonary effort is normal. No respiratory distress. Musculoskeletal: Cervical back: Normal range of motion. Skin: General: Skin is warm and dry. Neurological: General: No focal deficit present. Mental Status: He is alert. ASSESSMENT/PLAN: 1. Bilateral hearing loss due to cerumen impaction - ICD9: 389.8, 380.4, ICD10: H61.23 Ears successfully irrigated bilaterally by MA. Patient tolerated well. TMs pearly arrieta and intact on examination. Spontaneous improvement post irrigation. No pain. Patient was educated on supportive therapies. Patient will follow up with primary care provider as needed. Patient was instructed to immediately proceed to emergency room for any new, worsening, or symptoms lasting longer than anticipated. The patient's clinical presentation is otherwise unremarkable at this time. Based on exam and clinical finding, the patient is stable for discharge. Plan of care was discussed with patient. Patient verbalizes understanding and agrees to plan of care. This note was generated using [employer] software. It may contain errors in wording, punctuation, or spelling. Khadijah Moreno APRN.ANNA MARIE documented in this encounter [facility] 01-07-2022 Instructions Soham Laughlin DO - 01/07/2022 2:30 PM EDT Images from the original note were not included. 5 to Go!TM Healthy Kids Inside & Out 5 Eat FIVE fruits and veggies a day 4 Give and get FOUR compliments a day 3 Consume THREE calcium products a day 2 Limit media time to TWO hours a day 1 Get at least ONE hour of exercise a day 0 Consume ZERO sugar-sweetened drinks Go! Be healthy, inside and out! [email or web address].org/5toGo Adolescent to Adult Transition Program [facility] cares about helping you and each of our adolescents and young adults make a smooth transition to adult care. If your current doctor is a saw superintendent, we will work with you to decide the correct age for moving your care to a doctor or other provider who takes care of adults. We suggest that this move take place before age 22. Our office policy is to prepare you to move to a doctor or other provider who takes care of adults. This includes helping you find a doctor or other provider, sending medical records, and talking about any special needs with the new doctor or other provider. If your current doctor is in family medicine, [facility] will prepare you and your family for the transition to being an adult patient. You will be able to make your own healthcare decisions and will have an adult care team that meets your personal healthcare needs. At age 18, by law, we need your agreement to discuss personal health information with your family. We understand and respect that you may want to include your family in healthcare choices and will partner with you on how and when to include your family in decisions. We will make sure you know what changes to expect. We will also strive to make sure that all care team providers know your needs. We will help you find community resources and specialty care, if needed. Having your information before you come for the first time helps us be sure we do not miss any details. If joining our practice from outside [facility], we will help you request your medical record from past doctor(s) before your first visit. We will make every effort to work with your past providers to ensure a smooth transition and experience. We are always here for you. If you have any questions or concerns, please contact your primary care team or e-mail Write[employer] is the federally funded national resource center on health care transition (HCT). Its aim is to improve transition from pediatric to adult health care through the use of evidence-driven strategies for health rn home care, youth, young adults, and their families. www.Ansible[employer].org https://[email or web address].org/resour [email or web address]/?ktt-ohfimw-pycomcg documented in this encounter [facility] 01-07-2022 History of Presen t illness Narrative WELL VISIT PEDIATRIC MALE 18+YRS OLD SERVICE DATE: 01/07/2022 Odin is a 21 year old male who presents today for well exam. SUBJECTIVE CONCERNS: chest pain, worse with stretching. No shortness of breath. 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 Had COVID 3-4 weeks ago. Was sick for 2 days then mild symptoms HISTORY ACTIVE PROBLEM LIST Dog Bite of Arm - 04/23/2015 PAST MEDICAL HISTORY Diagnosis Date PMH - PAST MEDICAL HISTORY OF 10/2006 normal color vision Wrist fracture both wrists PAST SURGICAL HISTORY Procedure Laterality Date CIRCUMCISION,CLAMP, ALLERGIES No Known Allergies Medications: stjhmzyauuDITSC-dgfdoa-jemlwwafh (BMX 1:1:1) 1:1:1 liqd Take 10 mL by mouth three times daily as needed (sore throat). FAMILY HISTORY Problem Relation Age of Onset other (high cholesterol) Mother Cancer Paternal Grandfather lymphoma Hypertension Paternal Grandfather Thyroid Maternal Grandmother Cancer Maternal Grandmother Hypertension Maternal Grandmother Heart Maternal Grandfather Cancer Maternal Grandfather colon other (high cholesterol) Maternal Grandfather Social History Social History Narrative Not on file Smoking Exposure: Do you spend a significant amount of time with anyone who smokes? No School: [employer]; grades A-B. Physical Activity: stage lifting Screen Time totaling less than 2 hours of screen time per day. Safety: Reviewed seat belts, bike helmets, smoke detectors, and sunscreen Diet: -Eats 3 meals per day and 2 snacks per day Elimination: no concerns, normal size and consistency Dental: dental care current Sleep: -no sleep concerns Vision: No vision concerns Hearing: No hearing concerns Growth: No growth concerns Substance use: none Sexual History: Attraction: female Sexually Active: No Anxiety. In counseling OBJECTIVE Physical Exam: BP 130/74 Pulse 78 Temp 36.8 C (98.2 F) (Temporal) Ht 185.4 cm (6' 1") Wt 86.4 kg (190 lb 6.4 oz) SpO2 99% BMI 25.12 kg/m Blood pressure percentiles are not available for patients who are 18 years or older. Normalized BMI data available only for age 0 to 20 years. Last BMI: Wt: 91.5 kg (201 lb 11.2 oz) (92 %, Z= 1.44)* BMI: 27.36 kg/(m^2) Last 4 Encounter Wt Readings: Date: Wt: 01/07/2022 86.4 kg (190 lb 6.4 oz) 12/11/2020 91.5 kg (201 lb 11.2 oz) (92 %, Z= 1.44)* 09/19/2020 95.4 kg (210 lb 6.4 oz) (95 %, Z= 1.66)* 02/21/2020 90.3 kg (199 lb) (93 %, Z= 1.45)* Last 4 Encounter Ht Readings: Date: Ht: 01/07/2022 185.4 cm (6' 1") 03/08/2019 182.9 cm (6') (82 %, Z= 0.93)* 10/24/2015 179.7 cm (5' 10.75") (92 %, Z= 1.43)* 05/31/2014 172.7 cm (5' 8") (96 %, Z= 1.72)* General: Well developed, No acute distress Head: normocephalic Eyes: conjunctivae/corneas clear Ears: normal external ear and canal, tympanic membranes with normal landmarks Nose: no erythema or rhinorrhea Oropharynx: moist mucous membranes, no erythema or exudate Neck: Supple, no adenopathy; thyroid symmetric, normal size, no bruits Spine: Back symmetric, no curvature. Resp: lungs clear to auscultation Heart: RRR, normal S1 and S2. , No murmurs Chest: symmetric, no lesions Abdomen: Soft, nontender, nondistended, no palpable organomegaly or masses, normal bowel sounds Genitalia: Jeffrey stage V, no inguinal masses, no rashes or lesions, circumcised, testes descended bilaterally Extremities: No clubbing, cyanosis, or edema., No deformities or skin discoloration. Good capillary refill. Full range of motion. Neuro: No focal deficits or abnormal findings present Skin: no rashes, lesions or jaundice ASSESSMENT & PLAN 21 YEAR WELL CHILD Normalized BMI data available only for age 0 to 20 years. Odin is normal weight (BMI 5th% - 84th%): -To maintain a healthy weight, discussed limiting screen time to less than 2 hours per day, physical activity for at least one hour per day, 5 servings of fruits and vegetables per day, 3 meals per day, family meals ar home and no sugar containing beverages No flowsheet data found. Depression screening tool completed and reviewed. Based on score and interview, patient is not at risk for depression. Screening tool discussed with patient, and I recommended no further intervention at this time. - Discussed diet and safety. - Dental care discussed. - [employer] handout given (See Patient Instructions). - Parent/Guardian was counseled [id number] by myself (the billing provider) for the following immunizations and vaccine components, including side effects: TdaP. Parent/guardian consents for immunization and understands risks and benefits. A VIS sheet on each immunization was given to the parent/guardian. - Healthcare transition statement discussed.. - Follow up in one year for routine physical. SIGNATURE: Soham Laughlin DO PATIENT NAME: Odin Alvarez DATE: January 07, 2022 TIME: 2:20 PM documented in this encounter [facility] 12-06-2021 Miscellaneous Notes Agree with above plan. Betty Casas MD Spoke to mom who said she picked patient up from college today and he is isolating in a camper in the yard. Pt is taking 600mg ibuprofen Going to alternate tylenol and ibuprofen. Discussed pushing fluids while medication is working. Does not believe patient is dehydrated at this time, will continue to monitor. Has not done salt water gargle - encouraged Lidocaine gargle - worked yesterday, not as much today Pt thought he had sores in his throat, mom said she looked and it appears to be very red but did not see sores. Tonsils are not swollen Neck/glands are swollen Throat rachel when he drinks any liquid other than water. Chloraseptic spray helps for a few minutes. Discussed humidifier while patient is sleeping. Temp 100 Slightly congested nose Denies body aches, headaches, runny nose, SOB Mom aware of symptoms that require ER evaluation. Will call back if symptoms persist or worsen. Mom left VM on RN line regarding sore throat (see MC from patient). Provider responded to MC. Called back, no answer, left VM for pt to call back if any further questions Reason for Disposition [1] Follow-up call to recent contact AND [2] information only call, no triage required Protocols used: Information Only Call - No [id number] documented in this encounter [facility] 12-05-2021 Instructions Morris Quinonez APRN.FILM SOUND ENGINEER - 12/05/2021 12:18 PM EDT BMX 10 ml gargle and swallow/spit three times daily as needed for sore throat Will call with + strep results otherwise negative results can be viewed on mychart Supportive care with rest and lots of warm fluids Warm tea with honey Humidification OTC analgesics prn (tylenol/ibuprofen) pain/fever Throat lozenges, hard candies and/or chloraseptic sprays Warm Salt water gargles F/up with pcp for symptoms that persist or worsen [facility] PATIENT INFO PHARYNGITIS OVERVIEW A sore throat (pharyngitis) is a common problem, and usually is caused by a viral or bacterial infection. Sore throat usually resolves on its own without complications in adults, although it is important to know when to seek medical attention. Viruses can cause a sore throat and other upper respiratory infections, such as the common cold. Sore throat caused by a virus is not treated with antibiotics, but instead may be treated with rest, pain medication, and other therapies aimed at relieving symptoms. Strep throat is a particular kind of pharyngitis that is caused by a bacterium known as group A streptococcus (GAS). Strep throat is treated with a course of antibiotics. SORE THROAT SYMPTOMS Viral pharyngitis -- Most people with a sore throat have a virus. The most common viruses are those that cause upper respiratory infections, such as the common cold. Symptoms of a viral infection can include: A runny or congested nose Irritation or redness of the eyes Cough, hoarseness, or soreness in the roof of the mouth Some viruses cause a fever and can make you feel quite ill. Strep throat -- Approximately 10 percent of adults with a sore throat have strep throat. Signs and symptoms of strep throat include the following: Pain in the throat Fever (temperature greater than 100.4 F or 38 C) Enlarged lymph glands in the neck White patches of pus on the side or back of the throat No cough, runny nose, or irritation/redness of the eyes Other infections -- Many other less common but more serious infections can cause a sore throat, including mononucleosis (mono), influenza (the flu), N. gonococcus (gonorrhea), human immunodeficiency virus (HIV), and others. When to seek urgent help -- See your doctor or nurse immediately if you have a sore throat along with any of the following: Difficulty breathing Skin rash Drooling because you cannot swallow Swelling of the neck or tongue Stiff neck or difficulty opening the mouth SORE THROAT DIAGNOSIS Most people with a sore throat get better without treatment. There is no specific treatment for a sore throat caused by usual cold viruses. Is it strep or not? -- A combination of symptoms (fever, enlarged glands in the neck, white patches on your tonsils, and no cough) can help in determining if you have strep. If you have two or more symptoms, a rapid test or throat culture may be done. People with fewer than two symptoms usually do not need testing or treatment for strep throat. Rapid test -- The rapid test determines if there are streptococcus bacteria on a throat swab. The test can be done in a clinician's office and the results are available within a few minutes. The test is accurate in most cases, although a small percentage of tests are falsely negative (the bacteria are present but the test is negative). Throat culture -- A throat culture involves swabbing the throat, sending the swab to a laboratory, and waiting 24 to 48 hours for the results. Throat cultures are slightly more accurate than the rapid test. TREATMENT OF SORE THROAT Sore throat treatment -- Antibiotics do not help throat pain caused by a virus and are not recommended. Sore throat caused by viral infections usually lasts four to five days. During this time, treatments to reduce pain may be helpful. Several therapies can help to relieve throat pain. Pain medication -- You can treat your throat pain with a mild pain reliever such as acetaminophen (Tylenol ) or a non-steroidal anti-inflammatory agent such as ibuprofen or naproxen (Motrin or Aleve ). Oral rinses -- Salt-water gargles are an old stand-by for throat pain. It is not clear that salt water works to relieve pain, but it is unlikely to be harmful. Most recipes suggest 1/4 to 1/2 teaspoon of salt per one cup (8 ounces) of warm water. Sprays -- Sprays containing topical anesthetics (eg, benzocaine, phenol) are available to treat sore throat. However, such sprays are no more effective than sucking on hard candy. Lozenges -- A variety of lozenges (cough drops) are available to treat throat pain or relieve dryness. However, it is not clear that lozenges work any better than other forms of hard candy, which are generally less expensive. Other treatments -- Other treatments that may help with throat pain include sipping warm beverages (eg, honey or lemon tea, chicken soup), cold beverages, or eating cold or frozen desserts (eg, ice cream, popsicles). Alternative therapies -- Weave food stores, vitamin outlets, and Internet Web sites offer alternative treatments for relief of sore throat pain. We do not recommend these type of treatments due to the risks of contamination with pesticides/herbicides, inaccurate labeling and dosing information, and a lack of studies showing that these treatments are safe and effective. Strep throat -- Although strep throat typically resolves on its own within two to five days, treatment with antibiotics is recommended for adults whose rapid test or throat culture is positive for strep throat. Penicillin, or an antibiotic related to penicillin, is the treatment of choice for strep throat. It is usually given in pill or liquid form two to four times per day for 10 days. A one time injection of penicillin is also available. People who are allergic to penicillin are given an alternate antibiotic. It is important to finish the entire course of treatment to completely eliminate the infection. If symptoms do not begin to improve or worsen by three days of antibiotic treatment, you should see your doctor or nurse again. Return to work/school -- If you have been diagnosed with strep throat, stay home from work or school until you have completed 24 hours of antibiotics. Within 24 hours of beginning antibiotic treatment, you will feel better and will be less contagious [1]. If you have a sore throat (not diagnosed as strep), you may participate in your usual activities as soon as you feel well. SORE THROAT PREVENTION Hand washing is an essential and highly effective way to prevent the spread of infection. Wet your hands with water and plain soap, and rub them together for 15 to 30 seconds. Pay special attention to the fingernails, between the fingers, and the wrists. Rinse your hands thoroughly, and dry them with a clean towel. Alcohol-based hand rubs are a good alternative for disinfecting hands if a sink is not available. Hand rubs should be spread over the entire surface of hands, fingers, and wrists until dry, and may be used several times. These rubs can be used repeatedly without skin irritation or loss of effectiveness. Hand rubs are available as a liquid or wipe in small, portable sizes that are easy to carry in a pocket or handbag. When a sink is available, visibly soiled hands should be washed with soap and water. Wash your hands after coughing, blowing the nose, or sneezing. While it is not always possible to avoid being near a person who is sick, avoiding touching your eyes, nose, or mouth to prevent the spread of infection. In addition, tissues should be used to cover the mouth when sneezing or coughing. These used tissues should be disposed of promptly. Sneezing/coughing into your sleeve (at the inner elbow) is another way to contain sprays of saliva and secretions and will not contaminate your hand How to Manage Common Symptoms Associated with COVID for Adults Fever- Fever is a temperature over 100.4 F and can occur when the body is fighting an infection. To help treat a fever: Drink plenty of fluids and stay well hydrated. Eat small amounts of easy to digest food. Rest. Your body needs rest to recover, but getting up and moving around the house frequently is a good idea. You should try to continue doing your normal daily activities (bathing, toileting, grooming, cooking), though you will probably feel tired, and need to rest often. Avoid any heavy activity or exercise, as this will increase your body temperature. Dress in light clothing and stay covered in a light sheet. Keep the room temperature cool. Take a slightly warm (not cold or cool) bath, or apply damp washcloths to the forehead and wrists. Cough- Cough is a common symptom associated with COVID and can be bothersome. To help treat a cough: Stay well hydrated. Try warm water or tea with lemon and/or honey to help soothe the cough. Use a humidifier to add moisture to the air. Try a product with menthol, like a cough drop or a rub for your chest such as Vicks, which can help reduce cough. Try cough drops. Avoid smoking and other strong odors or perfumes. Try breathing exercises to keep your lungs open and clear. Take a big deep breath through your nose and hold for 5 seconds before slowly releasing. Repeat frequently, while you are awake. Congestion- Runny nose or nasal congestion can occur with COVID. Treatment can help relieve symptoms: Try OTC nasal saline spray, or nasal saline rinse to relieve mucus congestion. Nasal strips can help keep nasal passages open, to increase airflow. Elevating your head with an extra pillow in bed can help reduce congestion. Using a humidifier can increase moisture in the air, and make breathing easier. Sore Throat- Another common symptom with COVID, can be managed at home by: Stay well hydrated. Gargle with salt water - mix teaspoon salt with 1 cup of warm water and gargle. This helps to loosen mucus in the back of the throat and may reduce discomfort. Try ice chips, popsicles or lozenges to soothe the throat. Nausea/Vomiting/Diarrhea- These are common symptoms, and staying hydrated is most important. If you are nauseous or vomiting, start with small sips of water every 10-15 minutes and increase as tolerated. You can try sucking an ice cube too. If tolerating, you can try pedialyte or Gatorade, or flat sprite or carson-violeta. Start slowly and increase as you are able to. Instead of meals, try smaller, more frequent snacks. Try eating bland foods like crackers, toast, rice, and applesauce. Avoid spicy, greasy or fried foods and dairy containing foods. Even if you aren't feeling hungry due to lack of smell or taste, it is important to try to take in some food when you are able. After drinking and eating, rest in an upright position for up to two hours as needed to help decrease nauseous feelings. Try closing your eyes, avoid moving and watching TV. Avoid strong odors that can make you feel more nauseated. When to seek emergency medical attention Look for emergency warning signs for COVID-19. If having any of these symptoms, seek emergency medical care immediately: Trouble breathing Persistent pain or pressure in the chest New confusion Inability to wake or stay awake Bluish lips or face *This list is not all possible symptoms. Please call your medical provider for any other symptoms that are severe or concerning to you. documented in this encounter [facility] 12-05-2021 History of Presen t illness Narrative Telemedicine Visit - Distance Health Virtual Visit Note Patient seen on [employer] platform. Location of patient: [place] History of Present Illness Odin Alvarez is a 21 year old year old male who presents for the past 3 days with symptoms that are:constant and gradually worsening. Per patient states was evaluated on campus and tested positive for COVID yesterday there and is in current isolation. Only primary symptom is sore throat which causes difficulty with swallowing and eating. He denies any known exposures. Symptoms include: Fever (?100.4F): Yes, 101 on day 1 and 2 no fever in past 24 hours or Chills: No Cough: No Shortness of breath: No or Difficulty breathing: No Fatigue: No Muscle aches: No Headache: No New loss of smell or taste: No Sore throat: Yes Nasal congestion: No or Rhinorrhea: No Nausea: No or Vomiting: No Diarrhea: No Oral intake: normal Tobacco use: No Second hand smoke exposure: No Recent exposure to strep:No Sick contacts: unknown Recent travel: no OTC meds/remedies that patient has tried: chloraseptic spray and excedrin. PAST MEDICAL HISTORY Diagnosis Date PMH - PAST MEDICAL HISTORY OF 10/2006 normal color vision Wrist fracture both wrists PAST SURGICAL HISTORY Procedure Laterality Date CIRCUMCISION,CLAMP, FAMILY HISTORY Problem Relation Age of Onset other (high cholesterol) Mother Cancer Paternal Grandfather lymphoma Hypertension Paternal Grandfather Thyroid Maternal Grandmother Cancer Maternal Grandmother Hypertension Maternal Grandmother Heart Maternal Grandfather Cancer Maternal Grandfather colon other (high cholesterol) Maternal Grandfather Social History Tobacco Use Smoking status: Never Smokeless tobacco: Never Substance Use Topics Alcohol use: No Drug use: No No current outpatient medications on file. No current facility-administered medications for this visit. ALLERGIES No Known Allergies Video Exam (Examination performed via Video enabled technology) General appearance: Overall well in appearance Alert, oriented, pleasant, in NAD :Yes Ill appearing :No Lethargic appearing :No Eyes: Sclera clear :Yes Conjunctiva without erythema :Yes Ears: Tragus / outer ear tenderness by self palpation :No Oropharynx: mild erythema and no exudate or hypertrophy Frontal sinus tenderness by self palpation;No Maxillary sinus tenderness by self palpation :No Tender cervical adenopathy by self palpation :Yes Respiratory distress :No Coughing noted :No Audible wheezing noted :No Centor Criteria - Age (2-14=+1, 15-44=0, >=45 -1): 0 - Tonsillar exudates: 0 - Tender anterior cervical adenopathy: +1 - Fever by history (>38 or 100.4): +1 - Absence of cough: +1 0 points- probability of strep is 1-2.5% 1 point- probability of strep is 5-10% 2 points- probability of strep is 11-17% 3 points- probability of strep is 28-35% 4 points- probability of strep is 51-53% ASSESSMENT/PLAN: 1. COVID-19 - ICD9: 079.89, ICD10: U07.1 (primary diagnosis) - Continue quarantine per required CDC recommendations - Symptoms overall stable will r/o sore throat with strep testing - Continue supportive care with rest, fluids, OTC analgesia, OTC cold medicine prn - [id number] E ([facility]) 2. Acute pharyngitis, unspecified etiology - ICD9: 462, ICD10: J02.9 - suspect viral and related to COVID 19- will r/o strep - Alere Strep Test PENDING, no culture pending - BMX prn three times daily sore throat - Discussed supportive care treatment with fluids, rest and analgesia. - The patient may also use warm salt water gargles, throat lozenges and/or OTC throat spray as needed. - Contagious dz precautions discussed- including considered contagious until on antibiotics for 24 hours - The patient should follow up in one week if symptoms persist or worsen - Call back if drooling, increased temperature, symptoms of dehydration and/or still sick in one week - STREP A MOLECULAR (POC) - [id number] E ([facility]) -[email or web address] This link shares information about when antibiotics may help and when they may not. - Red flags discussed for need for in person care if arise - All questions answered Morris Quinonez APRN.CNP If you let us know who your primary care provider is, we will send them a notification of today s visit through our electronic medical records system. Since not all providers have access to our notifications, we strongly encourage you to share the following record of today s visit with your primary care provider at your next visit. This will help in providing you the best care. If you do not have an established Primary Care physician and would like to continue care with a [facility] Virtual Primary Care physician, please ask your provider to place a "Establish Primary Care" order. Use [employer] to manage your care, wherever you are, 21/10, on your mobile device or computer. [employer] connects you to MyChart so you can access all your health information in one place and also schedule and request virtual appointments with primary care providers. documented in this encounter [facility] Evaluation note No assessment inform ation available [facility] Work Phone: Evaluation note Diagnosis COVID-19- Primary Acute pharyngitis, unspecified etiology [facility] Diagnosis Encounter for general adult medical examination without abnormal findings- Primary Unspecified general medical examination Encounter for immunization Need for other specified prophylactic vaccination against single bacterial disease [facility] Diagnosis Bilateral hearing loss due to cerumen impaction- Primary [facility] Diagnosis Well adult health check- Primary Routine general medical examination at a health care facility [facility] Diagnosis Well adult exam- Primary Routine general medical examination at a health care facility [facility] Diagnosis Ulcer of tonsil- Primary Other chronic disease of tonsils and adenoids [facility] Diagnosis Cellulitis of skin- Primary Cellulitis and abscess of unspecified site [facility] Diagnosis Acute midline low back pain without sciatica- Primary Acute midline low back pain without sciatica [facility] Diagnosis Acute midline low back pain without sciatica [facility] Diagnosis Low back pain with sciatica, sciatica laterality unspecified, unspecified back pain laterality, unspecified chronicity- Primary [facility] Diagnosis Acute bilateral low back pain without sciatica- Primary Low back pain with sciatica, sciatica laterality unspecified, unspecified back pain laterality, unspecified chronicity [facility] Diagnosis Acute bilateral low back pain without sciatica- Primary [facility] Diagnosis Acute bilateral low back pain without sciatica- Primary [facility] Diagnosis Acute bilateral low back pain without sciatica- Primary [facility] Diagnosis Acute bilateral low back pain without sciatica- Primary [facility] Diagnosis Aphthous ulcer of mouth- Primary Oral aphthae [facility] Additional Instructions If your symptoms persist greater than 6 weeks follow-up with Dr. Soham Laughlin [facility] Work Phone: [facility] for referral (narrative)* Diagnostic Procedure Only (Routine) - Closed Specialty Diagnoses / Procedures Referred By Contac t Referred To Contact XR IMAGING Diagnoses Acute midline low back pain without sciatica Procedures XR LUMBAR GENERAL 3V AP/LAT/L5-S1 RADEX SPINE LUMBOSACRAL 2/3 VIEWS Jose Schmidt MD [address] [place] [address] [place] [address] Referral ID Status Reason Start Date Expiration Date V isits Requested Visits Authorized [id number] Closed Auto-Generate d Referral 02/27/2024 03/28/2025 1 1 [facility] for referral (narrative)* Diagnostic Procedure Only (Routine) - Closed Specialty Diagnoses / Procedures Referred By Contac t Referred To Contact XR IMAGING Diagnoses Acute midline low back pain without sciatica Procedures XR LUMBAR GENERAL 3V AP/LAT/L5-S1 RADEX SPINE LUMBOSACRAL 2/3 VIEWS Jose Schmidt MD [address] [place] [address] [place] [address] Referral ID Status Reason Start Date Expiration Date V isits Requested Visits Authorized [id number] Closed Auto-Generate d Referral 02/27/2024 03/28/2025 1 1 [facility] for visit Narrative* Diagnostic Procedure Only (Routine) - Closed Specialty Diagnoses / Procedures Referred By Contac t Referred To Contact XR IMAGING Diagnoses Acute midline low back pain without sciatica Procedures XR LUMBAR GENERAL 3V AP/LAT/L5-S1 RADEX SPINE LUMBOSACRAL 2/3 VIEWS Jose Schmidt MD [address] [place] [address] [place] [address] Referral ID Status Reason Start Date Expiration Date V isits Requested Visits Authorized [id number] Closed Auto-Generate d Referral 02/27/2024 03/28/2025 1 1 [facility] Chief Complaint and Reason for Visit Chief Complaint HEAD INJURY Advance Directives No Advanced Directives Records Found Advance Directive Response Recorded Date/ Time Living Will No September 27, 2021 8:57pm Power of Land Sales Agent No September 27 8:57pm Documents on File Type Date Recorded Patient Closing Coordinator Expl anation Advance Directive(s) 10/24/2015 12:43 PM Documents on File Type Date Recorded Patient Closing Coordinator Expl anation Advance Directive(s) 10/24/2015 12:43 PM Summary Purpose Family History No Family History Records FoundNo Family History Records Found Reason for Referral Specialty Diagnoses / Procedures Referred By Kian malik Referred To Contact [facility] Diagnoses Low back pain with sciatica, sciatica laterality unspecified, unspecified back pain laterality, unspecified chronicity Procedures CONSULT TO PHYSICAL THERAPY PHYSICAL THERAPY EVALUATION HIGH COMPLEX 45 MINS Leidy Husain, SLAB TRIPPER.FILM SOUND ENGINEER [address] [place] [address] [facility] [address] [place] [address] Referral ID Status Reason Start Date Expiration Date Visits Requested Visits Authorized [id number] Authorized Auto-Generat ed Referral 03/31/2023 03/30/2024 30 30 Additional Source Comments Goals (unrecognized section and content) Goals may be documented in a n alternate section (unrecognized sect ion and content) No Status Records FoundNo Status Records Found INFORMATION SOURCE (unrecogn ized section and content) DATE CREATED AUTHOR 10/02/2021 [facility] DATE CREATED AUTHOR AUTHOR'S ORGANIZ ATION 06/06/2024 [facility] Source Comments (unrecognize d section and content) In the event this informatio n is protected by the Federal Confidentiality of Alcohol and Drug Abuse Patient Records regulations: The Federal rules restrict any use of the information to criminally investigate or prosecute any alcohol or drug abuse patient.[facility] the event this information is protected by the Federal Confidentiality of Alcohol and Drug Abuse Patient Records regulations: The Federal rules restrict any use of the information to criminally investigate or prosecute any alcohol or drug abuse patient.[facility] the event this information is protected by the Federal Confidentiality of Alcohol and Drug Abuse Patient Records regulations: The Federal rules restrict any use of the information to criminally investigate or prosecute any alcohol or drug abuse patient.[facility] the event this information is protected by the Federal Confidentiality of Alcohol and Drug Abuse Patient Records regulations: The Federal rules restrict any use of the information to criminally investigate or prosecute any alcohol or drug abuse patient.[facility] the event this information is protected by the Federal Confidentiality of Alcohol and Drug Abuse Patient Records regulations: The Federal rules restrict any use of the information to criminally investigate or prosecute any alcohol or drug abuse patient.[facility] the event this information is protected by the Federal Confidentiality of Alcohol and Drug Abuse Patient Records regulations: The Federal rules restrict any use of the information to criminally investigate or prosecute any alcohol or drug abuse patient.[facility] the event this information is protected by the Federal Confidentiality of Alcohol and Drug Abuse Patient Records regulations: The Federal rules restrict any use of the information to criminally investigate or prosecute any alcohol or drug abuse patient.[facility] the event this information is protected by the Federal Confidentiality of Alcohol and Drug Abuse Patient Records regulations: The Federal rules restrict any use of the information to criminally investigate or prosecute any alcohol or drug abuse patient.[facility] the event this information is protected by the Federal Confidentiality of Alcohol and Drug Abuse Patient Records regulations: The Federal rules restrict any use of the information to criminally investigate or prosecute any alcohol or drug abuse patient.[facility] the event this information is protected by the Federal Confidentiality of Alcohol and Drug Abuse Patient Records regulations: The Federal rules restrict any use of the information to criminally investigate or prosecute any alcohol or drug abuse patient.[facility] the event this information is protected by the Federal Confidentiality of Alcohol and Drug Abuse Patient Records regulations: The Federal rules restrict any use of the information to criminally investigate or prosecute any alcohol or drug abuse patient.[facility] Center[facility] the event this information is protected by the Federal Confidentiality of Alcohol and Drug Abuse Patient Records regulations: The Federal rules restrict any use of the information to criminally investigate or prosecute any alcohol or drug abuse patient.[facility] Center[facility] the event this information is protected by the Federal Confidentiality of Alcohol and Drug Abuse Patient Records regulations: The Federal rules restrict any use of the information to criminally investigate or prosecute any alcohol or drug abuse patient.[facility] Center[facility] the event this information is protected by the Federal Confidentiality of Alcohol and Drug Abuse Patient Records regulations: The Federal rules restrict any use of the information to criminally investigate or prosecute any alcohol or drug abuse patient.[facility] Center[facility] the event this information is protected by the Federal Confidentiality of Alcohol and Drug Abuse Patient Records regulations: The Federal rules restrict any use of the information to criminally investigate or prosecute any alcohol or drug abuse patient.[facility] Center[facility] the event this information is protected by the Federal Confidentiality of Alcohol and Drug Abuse Patient Records regulations: The Federal rules restrict any use of the information to criminally investigate or prosecute any alcohol or drug abuse patient.[facility] Center[facility] the event this information is protected by the Federal Confidentiality of Alcohol and Drug Abuse Patient Records regulations: The Federal rules restrict any use of the information to criminally investigate or prosecute any alcohol or drug abuse patient.[facility] Medical CenterIn the event this information is protected by the Federal Confidentiality of Alcohol and Drug Abuse Patient Records regulations: The Federal rules restrict any use of the information to criminally investigate or prosecute any alcohol or drug abuse patient.[facility] the event this information is protected by the Federal Confidentiality of Alcohol and Drug Abuse Patient Records regulations: The Federal rules restrict any use of the information to criminally investigate or prosecute any alcohol or drug abuse patient.[facility] Center[facility] the event this information is protected by the Federal Confidentiality of Alcohol and Drug Abuse Patient Records regulations: The Federal rules restrict any use of the information to criminally investigate or prosecute any alcohol or drug abuse patient.[facility] Reason for Visit (unrecogniz ed section and content) Reason Comments Physical Therapy Specialty Diagnoses / Procedures Referred By Kian malik Referred To Contact PHYSICAL THERAPY Diagnoses Low back pain with sciatica, sciatica laterality unspecified, unspecified back pain laterality, unspecified chronicity [M54.40] Acute bilateral low back pain without sciatica [M54.50] Procedures Low back pain with sciatica, sciatica laterality unspecified, unspecified back pain laterality, unspecified chronicity [M54.40] Acute bilateral low back pain without sciatica [M54.50] Jose Schmidt MD [address] [place] [address] Pt [facility] [address] [place] [address] Referral ID Status Reason Start Date Expiration Date V isits Requested Visits Authorized [id number] Authorized 03/31/2024 03/30/2025 30 30 Reason Comments Physical Therapy PT Progress Note Reason Comments Sore Throat Reason Comments Well Child 21 year Reason Comments Ear Problem Right ear pressure a nd slight pain x 2 days Reason Comments Consult Switching primary ca re Reason Comments Follow Up Reason Comments Pain, Throat Sore in the back of throat x5 days Reason Comments Mass Bump/sore on back of head x 1 month Reason Comments Back Pain Reason Comments PT Eval Physical Therapy Specialty Diagnoses / Procedures Referred By Kian malik Referred To Contact [facility] Diagnoses Low back pain with sciatica, sciatica laterality unspecified, unspecified back pain laterality, unspecified chronicity Procedures CONSULT TO PHYSICAL THERAPY PHYSICAL THERAPY EVALUATION HIGH COMPLEX 45 MINS Leidy Husain, SLAB TRIPPER.FILM SOUND ENGINEER [address] [place] [address] [facility] [place] [address] [place] [address] Referral ID Status Reason Start Date Expiration Date Visits Requested Visits Authorized [id number] Authorized Auto-Generat ed Referral 03/31/2023 03/30/2024 30 30 Referral ID Status Reason Start Date Expiration Date V isits Requested Visits Authorized [id number] Pending Review 03/31/2024 06/29/2024 1 1 Reason Comments Physical Therapy PT Discharge Specialty Diagnoses / Procedures Referred By Contac t Referred To Contact PHYSICAL THERAPY Diagnoses Low back pain with sciatica, sciatica laterality unspecified, unspecified back pain laterality, unspecified chronicity [M54.40] Acute bilateral low back pain without sciatica [M54.50] Procedures Low back pain with sciatica, sciatica laterality unspecified, unspecified back pain laterality, unspecified chronicity [M54.40] Acute bilateral low back pain without sciatica [M54.50] Jose Schmidt MD [address] [place] [address] Phone: tel: fax: [facility] [address] [place] [address] Phone: tel: fax: Reason Comments Mouth Sores Sore on uvula x2 day s Care Teams (unrecognized sec tion and content) Casting Assistant Relationship Specialty Start Date End Date Soham Laughlin DO [address] [address] [place] [address] PCP - General 01/22/02 Casting Assistant Relationship Specialty Start Date End Date Soham Laughlin DO [address] [address] [place] [address] PCP - General 01/22/02 Casting Assistant Relationship Specialty Start Date End Date Soham Laughlin DO [address] [address] [place] [address] PCP - General 01/22/02 Casting Assistant Relationship Specialty Start Date End Date Soham Laughlin DO [address] [address] [place] [address] PCP - General 01/22/02 Casting Assistant Relationship Specialty Start Date End Date Soham Laughlin DO [address] [place] [address] PCP - General 01/22/02 Casting Assistant Relationship Specialty Start Date End Date Soham Laughlin DO [address] [address] [place] [address] PCP - General 01/22/02 Casting Assistant Relationship Specialty Start Date End Date Jose Schmidt MD [address] [place] [address] PCP - General Family Medicine 07/17/23 Casting Assistant Relationship Specialty Start Date End Date Jose Schmidt MD [address] [place] [address] PCP - General Family Medicine 07/17/23 Casting Assistant Relationship Specialty Start Date End Date Jose Schmidt MD [address] [place] [address] PCP - General Family Medicine 07/17/23 Casting Assistant Relationship Specialty Start Date End Date Jose Schmidt MD [address] [place] [address] PCP - General Family Medicine 07/17/23 Casting Assistant Relationship Specialty Start Date End Date Jose Schmidt MD [address] [place] [address] PCP - General Family Medicine 07/17/23 Casting Assistant Relationship Specialty Start Date End Date Jose Schmidt MD [address] [place] [address] PCP - General Family Medicine 07/17/23 Barbie Garcia APRN.FILM SOUND ENGINEER [address] [place] [address] [facility] 03/08/24 Leidy Husani APRN.FILM SOUND ENGINEER [address] [facility] [place] [address] [facility] 03/08/24 Casting Assistant Relationship Specialty Start Date End Date Jose Schmidt MD [address] [place] [address] PCP - General Family Medicine 07/17/23 Barbie Garcia APRN.FILM SOUND ENGINEER [address] [place] [address] [facility] 03/08/24 Leidy Husain APRN.FILM SOUND ENGINEER [address] [place] [address] [facility] Casting Assistant Relationship Specialty Start Date End Date Jose Schmidt MD [address] [facility] [place] [address] PCP - General Family Medicine 07/17/23 Barbie Garcia APRN.FILM SOUND ENGINEER [address] [place] [address] [facility] 03/08/24 Leidy Husain APRN.FILM SOUND ENGINEER [address] [place] [address] [facility] 03/08/24 Casting Assistant Relationship Specialty Start Date End Date Jose Schmidt MD [address] [place] [address] PCP - General Family Medicine 07/17/23 Barbie Garcia APRN.FILM SOUND ENGINEER [address] [place] [address] [facility] 03/08/24 Leidy Husain APRN.FILM SOUND ENGINEER [address] [place] [address] [facility] 03/08/24 Casting Assistant Relationship Specialty Start Date End Date Jose Schmidt MD [address] [place] [address] PCP - General [facility] 07/17/23 Barbie Garcia APRN.FILM SOUND ENGINEER [address] [place] [address] [facility] 03/08/24 Leidy Husain APRN.FILM SOUND ENGINEER [address], [place] [address] [facility] 03/08/24 FOR RECORDS PERTAINING TO PATIENTS WHO ARE OR HAVE BEEN ENROLLED IN A CHEMICAL DEPENDENCY/SUBSTANCEABUSE PROGRAM, SOME INFORMATION MAY BE OMITTED. This clinical summary was aggregated from multiple sources. Caution should be exercised in using it in the provision of clinical care. This summary normalizes information from multiple sources, and as a consequence, information in this document may materially change the coding, format and clinical context of patient data. In addition, data may be omitted in some cases. CLINICAL DECISIONS SHOULD BE BASED ON THE PRIMARY CLINICAL RECORDS. [employer] [facility]. provides no warranty or guarantee of the accuracy or completeness of information in this document.
[2025-02-26 15:06] VITALS: BP 135/77; PULSE 75; RESP 16; TEMP 36.7; O2SAT 100
--- NOTE | 2025-02-26 15:45 | EX.ED.GENINJ ---
HPI History of Present Illness Chief Complaint: Laceration Narrative Narrative: Patient is a 25-year-old male presenting to the emergency department for a finger injury. Patient was at work at [employer] when he cut his finger with a bread knife. He denies any other injuries. Last tetanus vaccine was in 2023. Went to urgent care and they sent him here for evaluation. Tetanus Immunization: <5 years PFSH PFSH Medical History no medical history Allergy/AdvReac Type Severity Reaction Status Date / Time No Known Allergies Allergy Verified 02/26/25 13:56 Family History no significant family his Social History household members: family Smoking Status: Never smoker substance use type: does not use ROS ROS ED ROS Narrative See HPI EXAM Physical Exam Narrative Exam Narrative: Vital signs: Reviewed General: Alert and oriented x 3. No acute distress. Well-appearing, nontoxic. HEENT: Head is normocephalic and atraumatic, sinuses nontender, pupils equal round and reactive. Nares are patent. Oropharynx and throat exams normal. Neck: Supple without lymphadenopathy nontender Cardiovascular: Regular rate and rhythm, no murmurs. No rubs or gallops. Normal S1 and S2 Respiratory: Clear to auscultation bilaterally. No wheezes, rales, rhonchi Abdominal: Soft and nontender. Normal bowel sounds. No guarding or rebound. Nonsurgical abdomen Extremities: There is a 1 cm by 1 cm V shaped skin avulsion flap to the left distal index finger on the radial side. No subcutaneous involvement. No active bleeding. No tenderness. No bruising. Normal range of motion with flexion and extension. Normal sensation in radial, median and ulnar distributions. Radial pulse intact. The rest of the physical exam is unremarkable Const Vital Signs: 02/26/25 13:55 02/26/25 15:06 Temperature 98 F 98.0 F Temperature Source Oral Pulse Rate 93 75 Respiratory Rate 16 16 Blood Pressure 140/86 H 135/77 H Blood Pressure Mean 104 96 Pulse Ox 100 100 Oxygen Delivery Method Room Air MDM MDM MDM Narrative Medical decision making narrative: Patient is a 25-year-old male presenting to the emergency department for a finger injury that occurred while at work. Patient was seen and examined. Vitals are stable. Patient resting in bed comfortably in no acute distress. The skin avulsion is very superficial, does not involve the subcutaneous tissue. No FB on wound exploration. I do not think there is any indication for x-ray imaging of the finger. He has no tenderness to palpation. There is no current active bleeding. Wound was irrigated for 10 minutes under running sink. The avulsion flap comes together very well and I do not think there is any indication for sutures. It is very superficial. This was discussed with patient and mother at bedside. Skin glue was applied. Dressing was applied by nursing staff. Up-to-date on tetanus. Wound care instructions were discussed with patient including keeping it clean and dry and leaving a dressing on for the next few days to prevent any reinjury to the finger. Patient discharged from the Emergency Department. I do not feel that the patient's evaluation reveals any acute reason for admission at this time. I instructed them to either follow-up with their primary care physician or promptly return to the Emergency Department for reevaluation should symptoms worsen or new symptoms develop. I explained what symptoms would indicate the need to return to the emergency department. Shared decision making was used. The patient voiced understanding of the treatment plan and is agreeable with it. Clinical impression Finger laceration History & Record Review Discussion w/independent historian: Patient and Family Discharge Plan Triage Chief Complaint: Laceration ED Provider: Jaqui Cunningham Dx/Rx/DC Orders Clinical Impression: Finger laceration Instructions: ED Laceration Minimize Scars, ED Laceration, Skin Adhesive Primary Care Provider: Dewayne Schmidt Referrals: Dewayne Schmidt MD [Primary Care Provider, Medical] - As soon as possible Activity Restrictions/Additional Instructions: Keep the wound clean and dry. Watch for signs of infection which include redness, drainage, warmth or swelling. Your evaluation in the Emergency Department did not reveal any acute reason for admission. However, I want to emphasize that you may be early in the course of a disease process or illness even if it is not present. For this reason you should follow-up within 24 hours for reevaluation with either your primary care physician or if necessary back here in the Emergency Department. You should return to the Emergency Department immediately if your symptoms worsen or new symptoms develop. Print Language: [place] Disposition Disposition: Home, Self Care Discharge Date/Time: 02/26/25 15:07
== END 2025-02-26 15:07 | disposition home or self-care (01) ==
PROVIDERS: Emergency Provider Student in an Organized Health Care Education/Training Program; PCP Family Medicine; Visit Provider Student in an Organized Health Care Education/Training Program
DX: S61.211A Laceration without foreign body of left index finger without damage to nail, initial encounter (principal); W26.0XXA Contact with knife, initial encounter; Y92.511 Restaurant or cafe as the place of occurrence of the external cause; Y99.0 Civilian activity done for income or pay
CPT/HCPCS: 12001; 99282